=== PATIENT | male | born 1960 | race Caucasian/White ===

== ENCOUNTER 2019-06-04 11:55 | Emergency (ER) | payer OTHER, SELFPAY ==
[2018-09-25 10:40] VITALS: BMI 31.6
[2019-06-04 11:55] VITALS: BP 126/58; PULSE 72; RESP 16; TEMP 36.6; O2SAT 97; BMI 34.2
--- NOTE | 2019-06-04 12:13 | RAD_ITS ---
STUDY: X-RAY - LEFT FOOT CLINICAL: Male, 58 years old. Pain following injury. TECHNIQUE: 3 view(s) of the foot. COMPARISON: None. FINDINGS: There is an enthesophyte involving the posterior superior calcaneus at the site of insertion of the Achilles tendon. Plantar spur. Normal visualized subtalar, talonavicular, calcaneocuboid, tarsal and tarsometatarsal articulations. Normal metatarsi. Normal metatarsophalangeal joint of the great toe. Normal tibial and fibular sesamoid bones. Normal interphalangeal joint of the great toe. Normal phalanges of the great toe. Normal second through fifth metatarsophalangeal joints. Normal interphalangeal joints and phalanges of the lesser toes. Soft tissue swelling. RAD/Foot min 3 Views IMPRESSION: Plantar spurs. Soft tissue swelling. Electronically Signed: Deven Tom, at 12:52 EDT , Service support ,
--- NOTE | 2019-06-04 12:13 | ED.DCSUM_ITS ---
History of Present Illness Chief Complaint: Lower Extremity Injury Informant: Patient Onset: Yesterday Narrative: Injury left lower extremity yesterday 6 PM after stepping out of his truck. States he felt a pop in his foot, there was no twisting or inversion. States s imilar symptoms 2 weeks ago which was self-limiting. Using ibuprofen last dose 9 AM this morning. No history of gastric ulcers or kidney injuries. There is no falls or head injuries. Currently on treatment for multiple myeloma. History of fractured toes in the past. Able to ambulate however with a limp. No paresthesias. Swelling improved compared to last evening, has had a wrap on it overnight. Prior similar symptoms: Yes Past Medical History - Allergies and Home Meds Allergies/Adverse Reactions: Allergies bupropion [From Wellbutrin] Allergy (Unknown, Verified 06/04/19 11:58) Unknown Primary Care Physician: Gadiel Morris MD [Primary Care Provider] - Smoking Status: Never smoker Review of Systems All systems negative except as indicated Musculoskeletal: Reports: Arthralgias Neurological: Denies: Parasthesia Physical Exam Vital Signs/Narrative: Vital Signs Temp Pulse Resp BP Pulse Ox 06/04/19 11:55 98 F 72 16 126/58 H 97 Inital Vital Signs reviewed: Yes General: Well nourished, Well developed, No Acute Distress Head: Normocephalic, Atraumatic Eyes: Perrl, EOMI ENT: Moist mucous membranes, No rhinorrhea Neck: Supple, Nontender Cardiovascular: Regular rate, Regular rhythm, No murmurs Respiratory: No distress, CTA bilaterally, Chest nontender Abdomen: Soft, Nontender, Nondistended, Normal bowel sounds Back: Nontender, Normal Inspection Extremities: No edema, - - Left lower extremity: No knee or leg tenderness. Mild tenderness medial malleolus with no deformities. Tender palpation dorsal midfoot and proximal to this. There is no proximal fifth base tenderness. Neurovascular intact distally. Skin intact. Skin: Normal color, No rash Neurological: Alert, Oriented x3, Cranial nerves II-XII grossly intact, Normal Strength, Normal Sensation Psychological: Normal affect, Normal Mood Diagnostic/Tx/Re-eval Clinical Impression(s) from Imaging Studies Ankle X-Ray 06/04/19 12:13 IMPRESSION: Soft tissue swelling. Calcaneal spurs. 1.3 cm x 0.9 cm lucency in the lateral malleolus. With the history of multiple myeloma, myelomatous involvement should be ruled out. Electronically Signed: Deven Tom, at 12:52 EDT , Service support , Foot X-Ray 06/04/19 12:13 IMPRESSION: Plantar spurs. Soft tissue swelling. Electronically Signed: Deven Tom, at 12:52 EDT , Service support , Patient declined any additional pain medicines. X-ray of ankle and foot obtained shows no fracture however noted 1.37 x 0.9 cm lucency lateral malleolus. History of multiple myeloma. There is no fracture with this. Discussed findings with the patient, image studies were placed on the disc for the patient. They will follow-up with his oncologist reevaluation further testing as needed as an outpatient. He will continue ibuprofen every 6 hours as needed. - Medical Decision Making Aircast provided for comfort and stabilization. ED Disposition - Plan for ED Patient: Disposition: Home or Assisted Living Diagnosis: Strain of left ankle and foot, History of multiple myeloma Instructions: Sprain, Ankle, with X-Ray, Sprain Foot Referrals: Gadiel Morris MD [Primary Care Provider] - Additional Instructions: Continue ibuprofen 600 mg every 6 hours as needed. Aircast for comfort. Reported 1.3 x 0.9 centimeters lucency of distal lateral malleolus. Take image studies to your oncologist Dr. Whitfield for discussion as an outpatient and testing as needed.
--- NOTE | 2019-06-04 12:13 | RAD_ITS ---
STUDY: X-RAY - LEFT ANKLE REASON FOR EXAM: Male, 58 years old. Left foot pain following injury. History multiple myeloma. TECHNIQUE: 3 view(s) of the ankle. COMPARISON: None. FINDINGS: There is a 1.3 cm x 0.9 cm rounded lucency involving the lateral malleolus. Multiple myeloma should be Normal medial and lateral malleoli. Normal tibiotalar articulation and ankle mortise. Calcaneal spurs. The visualized subtalar, talonavicular, calcaneocuboid and tarsal articulations are normal. Soft tissue swelling. RAD/Ankle min 3 Views IMPRESSION: Soft tissue swelling. Calcaneal spurs. 1.3 cm x 0.9 cm lucency in the lateral malleolus. With the history of multiple myeloma, myelomatous involvement should be ruled out. Electronically Signed: Deven Tom, at 12:52 EDT , Service support ,
== END 2019-06-04 13:23 | disposition home or self-care (01) ==
PROVIDERS: Emergency Provider Emergency Medicine; Family Provider Family Medicine; PCP Family Medicine
DX: S96.912A Strain of unspecified muscle and tendon at ankle and foot level, left foot, initial encounter (principal); C90.00 Multiple myeloma not having achieved remission; X58.XXXA Exposure to other specified factors, initial encounter; Y93.89 Activity, other specified; Y92.89 Other specified places as the place of occurrence of the external cause; Y99.8 Other external cause status
CPT/HCPCS: 73610; 73630; 99283

== ENCOUNTER 2019-06-15 14:13 | Emergency (ER) | payer OTHER, SELFPAY ==
[2019-06-15 14:14] VITALS: BP 125/68; PULSE 125; RESP 15; TEMP 37; O2SAT 96; BMI 30.9
[2019-06-15 14:19] VITALS: BP 125/68; PULSE 125; RESP 15; TEMP 37; O2SAT 96
--- NOTE | 2019-06-15 14:42 | CT_ITS ---
STUDY: CT ABDOMEN AND PELVIS WITH CONTRAST REASON FOR EXAM: Male, 59 years old. N/V/D, JUST FINISHED A ROUND OF CHEMO FOR MULTIPLE MYELOMA, HAD STEM CELL TRANSPLANT IN NOVEMBER RADIATION DOSAGE (If Supplied By Facility): CTDIvol = ( 18.40 ) mGy, DLP = ( 1298.62 ) mGycm TECHNIQUE: Transaxial images were obtained from the dome of the diaphragm to the symphysis pubis without oral contrast. IV 100mL Isovue-300 100 was administered. Sagittal and coronal images were reconstructed. Individualized dose optimization techniques were used for this CT. COMPARISON: None. FINDINGS: The visualized lung bases are unremarkable. The visualized portions of the heart are within normal limits. Hepatomegaly and fatty liver. Distended gallbladder containing multiple stones. There are multiple benign calcified granulomata of the spleen. Normal pancreas. Normal bilateral adrenal glands. Normal right kidney. Normal left kidney. Normal visualized stomach. Normal small intestine. Fluid is present throughout the nondistended colon which could be related to enteritis. The appendix is visualized and appears normal. Normal abdominal aorta. Normal inferior vena cava. Normal retroperitoneum. Normal urinary bladder. Normal abdominal wall. Multiple round low density bone lesions are noted compatible with the given history of multiple myeloma. Mild age-indeterminate compression deformities of the superior endplates of L2 and L3 are noted. CT/Abdomen/Pelvis W IV Cont ONLY IMPRESSION: Fluid is present throughout the nondistended colon which could be related to enteritis. Distended gallbladder containing multiple stones. Hepatomegaly and fatty liver. Multiple round low density bone lesions are noted compatible with the given history of multiple myeloma. Mild age-indeterminate compression deformities of the superior endplates of L2 and L3 are noted. Electronically Signed: Andres Cloud MD at 16:08 EDT Tel , Service support ,
--- NOTE | 2019-06-15 14:43 | ED.DCSUM_ITS ---
History of Present Illness <Rell Torres - Last Filed: 06/15/19 15:41> Informant: Patient Onset: Days Narrative: Patient with a history of multiple myeloma presents with a 8-day history of nausea, vomiting, and diarrhea. He states last night he was up all night vomiting. He is currently undergoing chemotherapy. He denies any fever or chills or abdominal pain. His most recent dose of chemotherapy was yesterday. He was admitted to [facility] from June 10 to June 12. He was discharged with Imodium but no antiemetic. He states that his symptoms did improve for a small amount of time, however they are worse again. He has no history of abdominal surgeries. His claims that the vomit looks like he is throwing up feces. <Lizzie Roy - Last Filed: 06/15/19 17:21> Chief Complaint: Nausea/Vomiting/Diarrhea Past Medical History <Rell Torres - Last Filed: 06/15/19 15:41> Smoking Status: Never smoker <Lizzie Roy - Last Filed: 06/15/19 17:21> - Allergies and Home Meds Allergies/Adverse Reactions: Allergies bupropion [From Wellbutrin] Allergy (Unknown, Verified 06/04/19 11:58) Unknown Primary Care Physician: Gadiel Morris MD [Primary Care Provider] - Review of Systems General: Denies: Chills, Fever, Sweats Eyes: Denies: Visual changes - bilaterally, Diplopia ENT: Denies: Rhinorrhea, Sore throat Cardiovascular: Denies: Chest pain, Palpitations Respiratory: Denies: Dyspnea, Cough, Dyspnea on exertion Gastrointestinal: Reports: Nausea, Vomiting, Diarrhea. Denies: Abdominal pain, Melena, Hematochezia Genitourinary: Denies: Dysuria, Hematuria, Frequency Musculoskeletal: Denies: Back pain, Extremity Pain Skin: Denies: Rash, Wounds Neurological: Denies: Headache, Weakness, Numbness <Lizzie Roy - Last Filed: 06/15/19 17:21> Physical Exam Vital Signs/Narrative: Vital Signs Temp Pulse Resp BP Pulse Ox 06/15/19 14:19 98.6 F 125 H 15 125/68 H 96 06/15/19 14:14 98.6 F 125 H 15 125/68 H 96 <Rell Torres - Last Filed: 06/15/19 15:41> Vital Signs/Narrative: Vital Signs Temp Pulse Resp BP Pulse Ox 06/15/19 14:14 98.6 F 125 H 15 125/68 H 96 General: Well nourished, Well developed, No Acute Distress Head: Normocephalic, Atraumatic Eyes: Perrl, EOMI ENT: Moist mucous membranes, No rhinorrhea Neck: Supple, Nontender Cardiovascular: Regular rate, Regular rhythm, No murmurs Respiratory: No distress, CTA bilaterally, Chest nontender Abdomen: Soft, Nondistended, Normal bowel sounds, Tender - generalized, - - Abdominal distension Back: Nontender, Normal Inspection Extremities: Nontender, No edema Skin: Normal color, No rash Neurological: Alert, Oriented x3, Cranial nerves II-XII grossly intact, Normal Strength, Normal Sensation Psychological: Normal affect, Normal Mood <Lizzie Roy - Last Filed: 06/15/19 17:21> Diagnostic/Tx/Re-eval - Medical Decision Making Evaluate this patient with our physician assistant store manager sales. This is a 59-year-old male history of multiple myeloma. Was recently hospitalized at [facility] last week for nausea and vomiting. He denies any abdominal pain or fever. He has had nausea, vomiting and diarrhea. He denies any dysuria. No prior bowel obstructions. No prior abdominal surgeries. Physical exam vital signs are stable afebrile. Older male no acute distress. HEENT exam mildly dry mucous membranes. Lungs clear to auscultation bilaterally. Heart regular rhythm no murmur. Abdomen soft. Nondistended normal bowel sounds no peritoneal signs. No hernias or masses. No signs of obstruction. Moving all 4 extremities. Neurologically awake and alert. Treated with IV fluids and Zofran. Labs and CT pending. <Rell Torres - Last Filed: 06/15/19 15:41> - Medical Decision Making Patient presents to the ED with nausea, vomiting, and diarrhea for the last 3 days. He is a history of multiple myeloma. He was tachycardic upon arrival, however otherwise vital signs within normal limits. He is afebrile. He is currently undergoing oral chemotherapy. His last dose was yesterday. He states his next dose is next week. He was recently discharged from [facility] for similar symptoms, however had no imaging. He was given IV fluids and Zofran here. Work-up here is fairly unremarkable other than hypokalemia of 2.9. P atient states he does have chronic hypokalemia and takes 40 mEq of potassium daily. Patient was given 40 mEq orally of potassium here. He does report improvement of symptoms. CT of the abdomen/pelvis with IV contrast shows no acute findings other than findings suspicious for enteritis. At this time, I think it is safe for the patient be discharged home. He has not vomited since being here however he does still admit that he is nauseous. He was given IV Phenergan for further control of his symptoms. He will be given prescriptions for Zofran for primary control and Phenergan if Zofran does not help. He does have enough potassium at home to continue supplementing. He will follow-up with his PCP and oncologist. He was educated on signs/symptoms to return to the ED. He is provided discharge instructions and agreeable plan. Impression: Nausea and vomiting and diarrhea. History of multiple myeloma. Disposition: Home stable <Lizzie Roy - Last Filed: 06/15/19 17:21> ED Disposition <Rell Torres - Last Filed: 06/15/19 15:41> <Lizzie Roy - Last Filed: 06/15/19 17:21> - Plan for ED Patient: Disposition: Home or Assisted Living Diagnosis: Nausea & vomiting, Hypokalemia due to excessive gastrointestinal loss of potassium Instructions: Hypokalemia, VOMITING AND DIARRHEA, Nonspecific (Adult) Prescriptions: proMETHazine tablet [Phenergan] 25 mg PO Q8H PRN PRN #10 tab PRN Reason: Nausea Prescription Printed Ondansetron HCl [Zofran] 4 mg PO Q8H PRN PRN #30 tab PRN Reason: Nausea Prescription Printed Referrals: Gadiel Morris MD [Primary Care Provider] -
[2019-06-15] MEDS: 0.9% Normal Saline 1,000 ML 1000 ML IV (14:58)
[2019-06-15] MEDS: Ondansetron 4 MG/2 ML Vial IV (14:59)
[2019-06-15 15:08] LABS: Absolute Lymphocyte Count 0.38 X10^3/uL (0.83-4.51); Absolute Neutrophil Count 5.5 X10^3/uL (2.0-7.7); Basophil# 0.03 X10^3/uL; Basophil% 0.4 % (0-1); Eosinophil# 0.01 X10^3/uL; Eosinophils% 0.1 % (0-5); Hematocrit 38.7 % (40-54); Hemoglobin 13.4 g/dL (13.0-16.5); Lymphocyte # 0.38 X10^3/ul (4.0); Lymphocyte % 5.4 % (19-41); Mean Corp Hgb Conc 34.6 g/dL (32-36); Mean Corpuscular Hgb 31.5 pg (27.0-32.0); Mean Corpuscular Volume 90.8 fL (80-94); Mean Platelet Vol. 9.8 fl (6.2-12.0); Monocyte# 1.03 X10^3/uL; Monocyte% 14.7 % (0-10); NRBC Flagged by Analyzer 0 % (0-5); Neutrophil # 5.48 X10^3/uL (2.7-7.7); POSITIVE DIFFERENTIAL YES; POSITIVE MORPHOLOGY YES; Platelet Count 276 K/mm3 (150-450); RBC Distribution Width CV 14.4 % (11.6-14.6); RBC Distribution Width SD 47.5 fl (35.1-43.9); Red Blood Count 4.26 M/mm3 (4.6-6.2)
[2019-06-15 15:21] LABS: Differential Indicated SCAN CRITERIA MET
[2019-06-15 15:26] LABS: ALB/GLOB Ratio 0.7 RATIO (0.9-2.4); AST(SGOT) 26 U/L (15-37); Alanine Aminotransfer ALT/SGPT 51 U/L (16-61); Alkaline Phosphatase 57 U/L (45-117); Anion Gap 7 (5-15); BUN 19 mg/dL (7-18); Calcium,Total 6.6 mg/dL (8.5-10.1); Chloride 102 mmol/L (98-107); Creatinine, Serum 1.27 mg/dL (0.70-1.30); EST Glomerular Filtration Rate 61 mL/min (>60); Est Glom Filt Rate - Afr Amer 74 mL/min (>60); Estimated Creatinine Clearance 67.04 ml/min; Globulin 4.4 g/dL (2.2-4.2); Glucose 237 mg/dL (74-106); Lipase 214 U/L (73-393); Potassium 2.9 mmol/L (3.5-5.1); Protein, Total 7.4 g/dL (6.4-8.2); Sodium Level 135 mmol/L (136-145)
[2019-06-15 15:53] LABS: Differential Comment SCANNED
[2019-06-15 16:19] VITALS: BP 107/75; PULSE 111; RESP 16; O2SAT 94
[2019-06-15] MEDS: proMETHazine 25 MG/ML Syringe 12.5 MG IV (16:39)
== END 2019-06-15 17:09 | disposition home or self-care (01) ==
PROVIDERS: Emergency Provider Physician Assistant; Family Provider Family Medicine; PCP Family Medicine
DX: R19.7 Diarrhea, unspecified (principal); R11.2 Nausea with vomiting, unspecified; E87.6 Hypokalemia; C90.00 Multiple myeloma not having achieved remission
CPT/HCPCS: 74177; 80053; 83690; 85025; 96361; 96374; 96375; 99285; J7030; Q9967; A4216; J2405

== ENCOUNTER 2019-06-18 19:42 | Emergency (ER) | payer OTHER, SELFPAY ==
[2019-06-18 19:43] VITALS: BP 128/86; PULSE 117; RESP 16; TEMP 36.6; O2SAT 100; BMI 30.7
--- NOTE | 2019-06-18 20:27 | EKG12_ITS ---
Test Reason : ABDN LABS Blood Pressure : / mmHG Vent. Rate : 110 BPM Atrial Rate : 110 BPM P-R Int : 128 ms QRS Dur : 154 ms QT Int : 424 ms P-R-T Axes : 022 040 011 degrees QTc Int : 573 ms Sinus tachycardia Possible Left atrial enlargement Right bundle branch block T wave abnormality, consider inferior ischemia Abnormal ECG Confirmed by DEBI JUARES ([id number]), video effects editor CATHY SHAEFR ([id number]) on 06/24/2019 12:12:08 PM Referred By: Confirmed By:DEBI JUARES
[2019-06-18] MEDS: Ondansetron 4 MG/2 ML Vial IV (20:46)
[2019-06-18] MEDS: 0.9% Normal Saline 1,000 ML 1000 ML IV (20:46)
[2019-06-18] MEDS: Acetaminophen 500 MG Tablet 1000 MG PO (20:46)
[2019-06-18 20:47] LABS: Absolute Lymphocyte Count 0.61 X10^3/uL (0.83-4.51); Absolute Neutrophil Count 8.9 X10^3/uL (2.0-7.7); Basophil# 0.05 X10^3/uL; Basophil% 0.5 % (0-1); Eosinophil# 0.03 X10^3/uL; Eosinophils% 0.3 % (0-5); Hematocrit 38.9 % (40-54); Hemoglobin 13.2 g/dL (13.0-16.5); Lymphocyte # 0.61 X10^3/ul (4.0); Mean Corp Hgb Conc 33.9 g/dL (32-36); Mean Corpuscular Hgb 31.1 pg (27.0-32.0); Mean Corpuscular Volume 91.7 fL (80-94); Mean Platelet Vol. 9.7 fl (6.2-12.0); Monocyte# 0.52 X10^3/uL; Monocyte% 5.1 % (0-10); NRBC Flagged by Analyzer 0 % (0-5); Neutrophil # 8.89 X10^3/uL (2.7-7.7); Neutrophil % 87.3 % (47-70); POSITIVE MORPHOLOGY YES; Platelet Count 328 K/mm3 (150-450); RBC Distribution Width CV 14.4 % (11.6-14.6); Red Blood Count 4.24 M/mm3 (4.6-6.2); White Blood Count 10.2 K/mm3 (4.4-11.0)
[2019-06-18 20:55] LABS: Differential Indicated SCAN CRITERIA MET
[2019-06-18 21:08] LABS: AST(SGOT) 49 U/L (15-37); Alanine Aminotransfer ALT/SGPT 61 U/L (16-61); Albumin, Serum 3.1 g/dL (3.2-5.0); Alkaline Phosphatase 70 U/L (45-117); Anion Gap 6 (5-15); BUN 14 mg/dL (7-18); BUN/Creat Ratio 13.7 RATIO (10-20); Bilirubin, Direct 0.17 mg/dL (0.00-0.30); Calcium,Total 6.9 mg/dL (8.5-10.1); Chloride 101 mmol/L (98-107); Creatinine, Serum 1.02 mg/dL (0.70-1.30); EST Glomerular Filtration Rate 79 mL/min (>60); Est Glom Filt Rate - Afr Amer 96 mL/min (>60); Estimated Creatinine Clearance 83.47 ml/min; Globulin 4.4 g/dL (2.2-4.2); Glucose 93 mg/dL (74-106); Lipase 196 U/L (73-393); Magnesium 1.7 mg/dL (1.6-2.6); Potassium 2.9 mmol/L (3.5-5.1); Protein, Total 7.5 g/dL (6.4-8.2); Sodium Level 137 mmol/L (136-145)
[2019-06-18 21:30] LABS: Differential Comment SCANNED
--- NOTE | 2019-06-18 22:23 | ED.VISSUMM ---
- ER Visit Summary Date of Service: 06/18/19 Chief Complaint: Vomiting and diarrhea History of Present Illness: The patient is a 59 M who presents the emergency department 2 weeks of vomiting and diarrhea. Patient states he was admitted to [facility] last week and was admitted for 4 days. During which time he required potassium calcium and magnesium repletion as well as IV fluids. He states that since returning home he is continued to have vomiting diarrhea. He notes diffuse abdominal cramping. He had blood work done yesterday that showed potassium 2.9 a calcium of 6.3. He notes the diarrhea is greenish-yellow and watery. He states that he has been unable to take his other medications at home due to vomiting. He has a history of multiple myeloma and underwent stem cell transplant in November 2018. He also has a history of diabetes hypertension high cholesterol coronary artery disease. He notes decreased urination and dry mouth. Physical Examination: Afebrile blood pressure 128/86 heart rate of 117 respirations are 16 pulse ox 100% room air Gen: Well-nourished well-developed Head: Normocephalic atraumatic Eyes: Perrl EOMI ENT: TMs clear no rhinorrhea dry mucous membranes Neck: Supple no lymphadenopathy no JVD nontender CVS: Regular rate tachycardic rhythm no murmurs normal S1-S2 Respiratory: No distress clear to auscultation bilaterally chest nontender Abdomen: Soft nontender nondistended normal bowel sounds no masses Back: Nontender Extremity: Nontender no edema Skin: Normal color no rash Neuro: alert orientated ?3 CN II-XII intact normal strength sensation Psych: Normal affect normal mood Test Results: CBC normal. Potassium 2.9. Calcium 6.9. Magnesium 1.7. Stool studies were ordered. EKG sinus rhythm at a rate of 114 with right bundle branch block. Emergency Department Course and Treatment: Patient received IV fluids and Zofran as well as potassium and calcium gluconate. Patient's heart rate has decreased from around 120 down to 95 with IV fluids. I spoke with our hospitalist here who feels the patient would be best served at [facility]. I contacted the transfer line and waiting acceptance. Impression: 1. Gastroenteritis 2. Dehydration 3. Hypokalemia 4. Hypocalcemia This note was generated with [employer] software. It may contain incorrect words, spelling, and punctuation that were not noted in review of the chart prior to signing ED Disposition - Plan for ED Patient: Referrals: Gadiel Morris MD [Primary Care Provider] -
[2019-06-18] MEDS: 0.9% Normal Saline 1,000 ML 125 ML IV (22:32)
[2019-06-18] MEDS: Potassium Chloride 10mEq/100mL 10 MEQ/100 ML IV.SOLN. 100 MEQ IV BOLUS (22:32)
[2019-06-18 23:03] VITALS: BP 124/73; PULSE 97; RESP 16; O2SAT 98
[2019-06-18 23:04] VITALS: BP 124/73; PULSE 95; RESP 16; O2SAT 100
[2019-06-19 00:20] VITALS: BP 116/75; PULSE 101; RESP 25; O2SAT 96
== END 2019-06-19 00:30 | disposition short-term general hospital (02) ==
LOC: ED 20:38
PROVIDERS: Emergency Provider Emergency Medicine; Family Provider Family Medicine; PCP Family Medicine
DX: K52.9 Noninfective gastroenteritis and colitis, unspecified (principal); E86.0 Dehydration; E87.6 Hypokalemia; E83.51 Hypocalcemia; C90.00 Multiple myeloma not having achieved remission; I10 Essential (primary) hypertension; E11.9 Type 2 diabetes mellitus without complications
CPT/HCPCS: 80048; 80076; 83690; 83735; 85025; 93005; 96361; 96365; 96366; 96368; 96375; 99285; J7030; J7040; A4216; J0610; J2405

== ENCOUNTER 2021-05-18 14:03 | Emergency (ER) | payer OTHER, SELFPAY ==
[2021-05-18 14:04] VITALS: BP 119/62; PULSE 63; RESP 18; TEMP 35.7; O2SAT 100; BMI 30.2
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
== END 2021-05-18 15:23 | disposition home or self-care (01) ==
LOC: ED 15:18
PROVIDERS: Emergency Provider Emergency Medicine; PCP Family Medicine
DX: L03.119 Cellulitis of unspecified part of limb (principal); I10 Essential (primary) hypertension; E11.9 Type 2 diabetes mellitus without complications; Z79.4 Long term (current) use of insulin; Z79.899 Other long term (current) drug therapy
CPT/HCPCS: 99282

== ENCOUNTER 2023-01-31 20:19 | Inpatient (IN) | payer OTHER, SELFPAY ==
[2023-01-31 20:25] VITALS: BP 109/61; PULSE 98; RESP 16; TEMP 36.6; O2SAT 97; BMI 25.5
[2023-01-31 22:20] LABS: Bedside Glucose 117 mg/dL (74-106)
--- NOTE | 2023-01-31 22:22 | HP.PCM_ITS ---
[facility] - General General Date of Admission: 01/31/23 Date of Service: 02/01/23 Chief Complaint: Here for 3 hours daily therapy. [facility] Narrative SUSAN CAMARILLO, is a 62 Male who presents with followin12/19/2022 Admit to [facility] for engineered cellular therapy for multiple myeloma. 12/28/2022 Worsening mental status concerning for neurotoxicity. Fever 100.8, on Zosyn, blood cultures negative, Chest X-ray negative. 12/30/2022 Atrial fibrillation with rapid ventricular response treated with IV Metoprolol, IV Diltiazem. Lactate rising to 4.2 despite 4 liters IV fluids given. 12/30/2022 Admit to [facility] MICU. Treat with atrial fibrillation with metoprolol, digoxin. Continue Zosyn, pancultured, for fever in immunocompromised patient. 01/10/2023 Subarachnoid hemorrhage. Severe thrombocytopenia. 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 01/31/2023 Admit to for 3 hours daily rehabilitation, strengthening, prior to discharge home with . [facility] Medical History Back problem Bone fracture Cancer Heart disease HTN (hypertension) Type 2 diabetes mellitus UTI (urinary tract infection) Vascular disease Home Medications acyclovir 400 mg tablet 400 mg PO BID 07/24/18 [History Last Taken Unknown] aspirin 81 mg tablet,delayed release 81 mg PO DAILY 07/24/18 [History Last Taken Unknown] atenolol 100 mg tablet 100 mg PO DAILY 07/24/18 [History Last Taken Unknown] clopidogrel 75 mg tablet (Plavix) 75 mg PO DAILY 07/24/18 [History Last Taken Unknown] daratumumab 20 mg/mL intravenous solution mg .Route 07/24/18 [History Last Taken Unknown] dexamethasone 4 mg tablet 20 mg PO .1 x q week STEROID 07/24/18 [History Last Taken Unknown] duloxetine 30 mg capsule,delayed release 30 mg PO DAILY TREAT DEPRESSION 07/24/18 [History Last Taken Unknown] hydrochlorothiazide 25 mg tablet 25 mg PO DAILY 07/24/18 [History Last Taken Unknown] lenalidomide 25 mg capsule 25 mg PO DAILY TREAT MULTIPLE MYELOMA 07/24/18 [History Last Taken Unknown] lisinopril 30 mg tablet 30 mg PO DAILY HTN 07/24/18 [History Last Taken Unknown] FreeStyle Skip 14 Day Sensor (flash glucose sensor) #1 ea 07/26/18 [Rx Last Taken Unknown] flash glucose scanning reader (FreeStyle Skip 14 Day [place]) #1 ea 07/26/18 [Rx Last Taken Unknown] insulin glargine U-300 conc 300 unit/mL (1.5 mL) subcutaneous pen (Toujeo SoloStar U-300 Insulin) 62 unit (0.2067 mL) subcut BID e11.9 #38 mL 09/24/18 [Rx Last Taken Unknown] insulin lispro 100 unit/mL subcutaneous pen (Humalog KwikPen (U-100) Insulin) See Rx Instructions subcut TID e11.9 #36 mL 09/24/18 [Rx Last Taken Unknown] ondansetron HCl 4 mg tablet 4 mg PO Q8H PRN PRN Nausea #30 tabs 06/15/19 [Rx Last Taken Unknown] promethazine 25 mg tablet 25 mg PO Q8H PRN PRN Nausea #10 tabs 06/15/19 [Rx Last Taken Unknown] apixaban 5 mg tablet (Eliquis) 5 mg PO BID BLOOD THINNER 01/31/23 [History Last Taken Unknown] calcium carbonate 200 mg calcium (500 mg)-vitamin D3 400 unit tablet tab PO SUPPLEMENT 01/31/23 [History Last Taken Unknown] carvedilol 6.25 mg tablet 6.25 mg BID HEART 01/31/23 [History Last Taken Unknown] cetirizine 10 mg tablet (Zyrtec) 10 mg PO DAILY ANTIHYSTAMINE 01/31/23 [History Last Taken Unknown] dexamethasone 0.75 mg tablet 1 mg PO DAILY STEROID 01/31/23 [History Last Taken Unknown] hydralazine 100 mg tablet 75 mg PO BID HTN 01/31/23 [History Last Taken Unknown] levetiracetam 750 mg tablet (Keppra) 750 mg PO BID SEIZURE 01/31/23 [History Last Taken Unknown] lidocaine 4 % topical patch (Salonpas (lidocaine)) 1 patch topical DAILY PRN Pain 01/31/23 [History Last Taken Unknown] loperamide 2 mg capsule 2 mg PO Q6H PRN Diarrhea 01/31/23 [History Last Taken Unknown] losartan 100 mg tablet (Cozaar) 100 mg BLOOD PRESSURE 01/31/23 [History Last Taken Unknown] melatonin 5 mg tablet 6 mg PO QHS SLEEP AID 01/31/23 [History Last Taken Unknown] pantoprazole 40 mg tablet,delayed release (Protonix) 40 mg PO DAILY STOMACH ACID 01/31/23 [History Last Taken Unknown] prochlorperazine maleate 10 mg tablet (Compazine) 10 mg PO Q6H PRN Nausea 01/31/23 [History Last Taken Unknown] romiplostim 125 mcg subcutaneous solution 84.1 mcg subcut QWEEK FOR PLATELET COUNT 01/31/23 [History Last Taken Unknown] sulfamethoxazole 800 mg-trimethoprim 160 mg tablet (Bactrim DS) tab MOWEFR INFECTION 01/31/23 [History Last Taken Unknown] tamsulosin 0.4 mg capsule (Flomax) 0.4 mg PO RETENTION 01/31/23 [History Last Taken Unknown] insulin glargine 100 unit/mL (3 mL) subcutaneous pen 48 unit subcut BREAKFAST GLUCOSE CONTROL 02/01/23 [History Last Taken Unknown] insulin glargine 100 unit/mL (3 mL) subcutaneous pen 48 unit subcut QHS GLUCOSE CONTROL 02/01/23 [History Last Taken Unknown] Allergy/AdvReac Type Severity Reaction Status Date / Time bupropion [From Wellbutrin] Allergy Unknown Unknown Verified 05/18/21 14:03 Family History Father Cancer Grandmother Diabetes Grandfather Heart disease Mother Hypertension Surgical History History of bone marrow biopsy History of heart artery stent History of hernia repair Social History (Updated 01/31/23 @ 23:40 by Sallie Zarate) adopted: No household members: spouse housing: house number of children: 3 financial difficulty paying for basics: decline to answer service: No current occupational status: other current occupation: self employed current occupational exposures/hazards: No pets and animals: Yes (7 horses, 2 dogs) leisure activities: games Smoking Status: Never smoker Smokeless tobacco user: snuff alcohol intake: never substance use type: does not use ROS Constitutional Constitutional: Denies chills, fever(s) or weight gain ENT HEENT: Denies headache(s), nasal congestion or nasal discharge Cardiovascular Cardiovascular: Denies chest pain or palpitations Respiratory/Chest Respiratory/Chest: Denies cough, excessive phlegm production or shortness of breath with exertion Gastrointestinal Gastrointestinal: Denies abdominal pain, nausea or vomiting Genitourinary Genitourinary: Denies dysuria Musculoskeletal Musculoskeletal: Denies joint pain or joint swelling Integumentary Integumentary: Denies rash or wounds Neurologic Neurologic: Denies focal weakness, numbness or tingling Psychiatric Psychiatric: Denies anxiety, auditory hallucinations, depression, homicidal ideation or suicidal ideation Vital Signs Vital Signs Vital Signs: 01/31/23 20:25 Temperature 97.8 F Temperature Source Oral Pulse Rate 98 Respiratory Rate 16 Blood Pressure 109/61 Blood Pressure Mean 77 Blood Pressure Source Monitor Blood Pressure Position Semi-Fowlers Blood Pressure Location Right Arm Pulse Ox 97 Oxygen Delivery Method Room Air Weight Weight: 85.531 kg Body Mass Index (BMI) 25.5 Indicators for Scoring Admitted with or Primary Diagnosis of CVA/Stroke: Yes Hx of CVA/Stroke: Yes Modified [place] Score MRS Score at time of Evaluation: 3-Moderate disability NIHSS NIHSS 1a. Level of Consciousness: Alert; keenly responsive 1b. LOC Questions: Answers BOTH questions correctly. 1c. LOC Commands: Performs both tasks correctly. 2. Best Gaze: Normal 3. Visual: No visual loss 4. Facial Palsy: Normal symmetrical movements 5a. Left Arm: No drift; arm holds 90 (or 45) degrees for full 10 seconds 5b. Right Arm: No drift; arm holds 90 (or 45) degrees for full 10 seconds 6a. Left Leg: No drift; leg holds 30-degree position for full 5 seconds 6b. Right Leg: No drift; leg holds 30-degree position for full 5 seconds 7. Limb Ataxia: Absent 8. Sensory: Normal; no sensory loss 9. Best Language: No aphasia; normal 10. Dysarthria: Normal 11. Extinction and Inattention: No abnormality Total: 0 Results Lab / Micro Data Result Diagrams: 02/01/23 05:49 02/01/23 05:49 Labs: Laboratory Results - last 24 hr 01/31/23 21:58: POC Glucose 117 H Assessment & Plan Assessment/Plan (1) Debility: (2) Multiple myeloma: (3) Sepsis: (4) Fungemia: (5) Chelsea albicans infection: (6) Atrial fibrillation with rapid ventricular response: (7) Coronary artery disease: (8) Heart failure with reduced ejection fraction: (9) Diabetes mellitus: (10) Hypertension: (11) Hyperlipidemia: PLAN: Plan 62 year old male with multiple myeloma hospitalized for engineered cellular th erapy, complicated by brain bleed, thrombocytopenia, sepsis, chelsea albicans fungemia, atrial fibrillation with rapid ventricular response, admitted to for 3 hours daily rehabilitation, strengthening, prior to discharge home with . * Debility - PT/OT. * Cognition - ST. * Pain - Lidoderm patch daily prn. * Bowel - Miralax 17gm daily prn, senna/colace 2 tablets bid, Dulcolax 10mg pr x 1 prn, MOM 30ml po x 1 prn, Imodium 2mg q6h prn. * DVT prophylaxis - on Eliquis. * Herpes Zoster prophylaxis - Acyclovir 400mg bid. * Atrial fibrillation - Coreg 6.25mg bidcm, Eliquis 5mg bid. * Calcium deficiency - Calcium D 1 tablet daily. * Neurotoxicity - Dexamethasone taper. * Diabetes Mellitus II - Glargine 30 units bid. * Hypertension - Coreg 6.25mg bidcm, Losartan 100mg daily, Hydralazine 75mg bid. * Seizure disorder - Keppra 750mg bid. * Allergic rhinitis - Loratadine 10mg daily. * Insomnia - Melatonin 6mg qhs. * GERD - Pantoprazole 40mg daily. * Nausea - Compazine 10mg q6h prn. * PCP prophylaxis - Bactrim DS 1 tablet MWF. * BPH - Tamsulosin 0.4mg daily. * Thrombocytopenia - Nplate 84.1mcg sc qweek.
[2023-01-31] MEDS: Acyclovir 200 MG Capsule 400 MG PO (22:51)
[2023-01-31] MEDS: Senna/Docusate Sodium 1 Tablet 2 TABLET PO (22:51)
[2023-01-31] MEDS: MELATONIN 3 MG TABLET 6 MG PO (22:51)
[2023-01-31] MEDS: levETIRAcetam 750 MG Tablet PO (22:52)
[2023-01-31] MEDS: APIXABAN 5 MG TABLET PO (22:52)
[2023-01-31 22:53] VITALS: PULSE 99
[2023-01-31] MEDS: hydrALAZINE 25 MG Tablet 75 MG PO (22:53)
[2023-01-31] MEDS: Carvedilol 6.25 MG Tablet PO (22:53)
[2023-01-31 23:08] VITALS: BP 116/64; PULSE 105; RESP 17; TEMP 36.8; O2SAT 98
[2023-02-01] VITALS (9 sets, daily range): BP systolic 99–109; BP diastolic 64–75; PULSE 101–115; RESP 16–20; TEMP 35.8–36.1; O2SAT 94–98; BMI 25.0; BMI 25.1
--- NOTE | 2023-02-01 02:35 | NURSING ---
blood glucose check at 02:00 was 52. Intervention of curt crackers, peanut butter, and juice provided. Pt's pillow was damp but pt claims he has been dyaphoretic the past few weeks and denies symptoms. BS recheck was 91. Will continue to monitor.
[2023-02-01 03:26] LABS: Bedside Glucose 52 mg/dL (74-106)
[2023-02-01 03:26] LABS: Bedside Glucose 91 mg/dL (74-106)
[2023-02-01 04:11] LABS: Bedside Glucose 132 mg/dL (74-106)
[2023-02-01 06:05] LABS: Absolute Lymphocyte Count 2.64 X10^3/uL (0.83-4.51); Absolute Neutrophil Count 6.9 X10^3/uL (2.0-7.7); Basophil# 0.05 X10^3/uL; Basophil% 0.4 % (0-1); Eosinophil# 0.02 X10^3/uL; Eosinophils% 0.2 % (0-5); Hematocrit 33.8 % (40-54); Lymphocyte # 2.64 X10^3/ul (0.83-4.51); Lymphocyte % 22.6 % (19-41); Mean Corp Hgb Conc 32.5 g/dL (32-36); Mean Corpuscular Hgb 35.1 pg (27.0-32.0); Mean Platelet Vol. 11.3 fl (6.2-12.0); Monocyte# 1.77 X10^3/uL; Monocyte% 15.2 % (0-10); NRBC Flagged by Analyzer 0.3 % (0-5); POSITIVE DIFFERENTIAL YES; POSITIVE MORPHOLOGY YES; Platelet Count 217 K/mm3 (150-450); RBC Distribution Width CV 23.6 % (11.6-14.6); RBC Distribution Width SD 90.3 fl (35.1-43.9); Red Blood Count 3.13 M/mm3 (4.6-6.2); White Blood Count 11.7 K/mm3 (4.4-11.0)
[2023-02-01 06:09] LABS: Differential Indicated SCAN CRITERIA MET
[2023-02-01 06:28] LABS: Anisocytosis 3+
[2023-02-01 06:29] LABS: Macrocytosis 2+; Polychromasia RARE
[2023-02-01 06:44] LABS: Anion Gap 6 (5-15); BUN 56 mg/dL (7-18); BUN/Creat Ratio 66.1 RATIO (10-20); Calcium,Total 8.9 mg/dL (8.5-10.1); Chloride 99 mmol/L (98-107); Creatinine, Serum 0.85 mg/dL (0.70-1.30); EST Glomerular Filtration Rate 97 mL/min (>60); Est Glom Filt Rate - Afr Amer 117 mL/min (>60); Estimated Creatinine Clearance 96.37 ml/min; Glucose 188 mg/dL (74-106); Magnesium 1.7 mg/dL (1.6-2.6); Phosphorus 4.4 mg/dL (2.5-4.9); Potassium 4.3 mmol/L (3.5-5.1); Sodium Level 134 mmol/L (136-145)
[2023-02-01 06:55] LABS: Bedside Glucose 191 mg/dL (74-106)
[2023-02-01] MEDS: Lidocaine 5% Patch 1 PATCH TOPICAL (09:17)
[2023-02-01] MEDS: APIXABAN 5 MG TABLET PO (09:18)
[2023-02-01] MEDS: hydrALAZINE 25 MG Tablet 75 MG PO ×2 (09:18→21:23)
[2023-02-01] MEDS: DULoxetine Hcl 30 MG Capsule PO (09:18)
[2023-02-01] MEDS: Pantoprazole Sodium 40 MG Tablet PO (09:18)
[2023-02-01] MEDS: Calcium Carb/Vitamin D 1 TABLET Tablet PO (09:19)
[2023-02-01] MEDS: Smz/Tmp Ds Tablet 1 TABLET PO (09:19)
[2023-02-01] MEDS: Loratadine 10 MG Tablet PO (09:19)
[2023-02-01] MEDS: Carvedilol 6.25 MG Tablet PO ×2 (09:19→18:21)
[2023-02-01] MEDS: Acyclovir 200 MG Capsule 400 MG PO ×2 (09:19→21:22)
[2023-02-01] MEDS: Losartan Potassium 100 MG Tablet PO (09:20)
[2023-02-01] MEDS: Insulin Glargine-YFGN 100 UNIT/ML Pen 30 UNIT SC (09:20)
[2023-02-01] MEDS: levETIRAcetam 750 MG Tablet PO ×2 (09:20→21:22)
[2023-02-01] MEDS: dexAMETHasone 4 MG Tablet 2 MG PO (09:21)
[2023-02-01] MEDS: Menthol/Lanolin/Calamine/Znox 113 GM Tube 1 APPLIC TOPICAL ×2 (11:50→21:25)
[2023-02-01] MEDS: Loperamide 2 MG Capsule PO (11:50)
--- NOTE | 2023-02-01 12:00 | NURSING ---
Addendum entered by Renita Romero 02/01/23 13:17: recheck blood sugar 465. Dr Gaitan made aware. 1x dose Humalog 15u. Original Note: pts blood sugar 461. Dr Gaitan on unit and gave 1x order Humalog 10u and to recheck in 1 hr
[2023-02-01] MEDS: Insulin Lispro 100 UNIT/ML INSULN.PEN 10 UNIT SC (12:25)
[2023-02-01 12:31] LABS: Bedside Glucose 461 mg/dL (74-106)
[2023-02-01] MEDS: Insulin Lispro 100 UNIT/ML INSULN.PEN 15 UNIT SC (13:18)
[2023-02-01 13:41] LABS: Bedside Glucose 455 mg/dL (74-106)
--- NOTE | 2023-02-01 14:35 | PCM.PN.BLA ---
Progress Note He was hypoglycemic overnight and the HS dose of Lantus has been discontinued. BS at breakfast was 191 after snacks and went to 461 at lunchtime. He received no lispro in the AM. After 10 units of lispro at lunch the blood sugar came down to only 455 and he was given an additional 15 units of lispro. We will continue the a.m. glargine 30 units and add scheduled mealtime lispro. Will also continue with a medium high sliding scale. He only ate 25 to 49% of lunch but ate 75 to 100% of breakfast. It is okay to give lispro immediately after he eats and the nurses were instructed that if he does not eat he should not get scheduled lispro but should continue with the sliding scale insulin. I suspect the blood sugars will decrease when the dexamethasone is discontinued in 5 days. the patient was not examined and there will be charge for my input/orders. Dr. Traore is managing this patient and I just happened to be here with the BS was 461.
--- NOTE | 2023-02-01 15:37 | CHAPLAIN ---
Type of Pastoral Visit _x__ Initial Visit ___ Follow-up Visit ___ On-call Visit ___ General Patient Visit ___ Spiritual Assessment ___ Family Conference ___ Bereavement ___ Rapid Response ___ Code Blue ___ Other (describe below) Pastoral Care Referral From _x__ Patient ___ Family ___ Nurse ___ Physician ___ Job Developer ___ Production Potter ___ Other (describe below) Sacrament/Intervention _x__ Active listening ___ Anointing ___ Restorationist ___ Bereavement ___ Communion _x__ Kimberly exploration ___ _x__ Life review _x__ Prayer ___ Reconciliation ___ Sacrament of Sick _x__ Supportive presence ___ Wedding ___ Other (describe below) Pastoral Comments patient is very welcoming of spiritual care and visit of land examiner; pt gives some life review that revolves mostly around his kimberly journey; pt identifies as a Yazidi that has a Samaritan understanding and experience; pt states that he has seen people healed and believes that it is possible for him too; pt states he is waiting on God for that healing; pt welcomes further visits from this land examiner; pt expresses thanks for the prayer offered for patient;
--- NOTE | 2023-02-01 16:18 | REHABEVAL_ITS ---
Admission Information Primary Diagnosis:: SAH, c. albicans fungemia, afib with RVR. Status Changes from Prescreening?: No changes Identified Actual Problem List:: Cognitve Impr/Memory Loss, Mobility Impaired, Self Care Deficit and Diabetes, Hypoglycemia Potential Problem List:: DVT, Bleeding, Infection, UTI, Aspiration, Falls, Skin Integrity and Depression Risk of Complications DVT: STEVEN Sandoval Bleeding: Monitor Lab Values, Nursing to Teach Precautions for anti-coagulation therapy., Wound, if applicable, to be assessed every shift. and Stroke patients assessed for lethargy or change in status. Infection: Clinical Staff to Monitor for S/S of infection: and S/S of infection include fever, redness, warmth, etc. Urinary Tract Infection: Monitor for frequency, burning, discomfort, or incontinence. and Nursing will obtain urine sample for urinalysis and C&S when ordered. Aspiration: Clinical staff will monitor for coughing, drooling, congestion., Speech will evaluate swallowing and dsyphasia. and Nursing will monitor patient swallowing during meals. Falls: Patient will be evaluated for Fall Precautions and Patient will be placed on Fall Precautions as indicated per protocol. Skin Breakdown: Nursing will assess skin daily using assessment tool. and Nursing will place on Skin Breakdown Precautions as indicated. Pain: Clinical staff will assess patient's pain level per protocol., Medications will be given, if needed, and the pain level reassessed. and Other methods: Massage, distraction, decrease stimulus, etc. used PRN. Plan of Care Patient requires physician specializing in physical medicine and rehab oversight to provide close medical supervision of rehab issues including: Pain Management, Sleep Problems, Bowel and Bladder, Medical and co-morbidity Management, DVT prophylaxis, Rehabilitation Leadership and Coordination of treatment team Patient needs Physical Therapy: For a minimum of 1 hour and At least 5 out of 7 days Patient needs Physical Therapy to improve:: Mobility, Strengthening, Transfers, Stretching, ROM, Endurance, Stairs, Gait and Balance Patient needs Occupational Therapy: For a minimum of 1 hour and At least 5 out of 7 days Patient needs Occupational Therapy to improve ADL's incl.: Eating, Grooming, Bathing, Dressing, Toileting, Toilet transfers, Higher functioning activities, Household tasks, Adaptive Equipment and Other activities as determined Patient requires speech therapy: For a minimum of 1 hour and At least 5 out of 7 days Patient requires speech therapy for: Swallowing, Cognition, Language Skills and Compensatory Strategies Patient requires 24/7 Rehabilitation Nursing for: Pain Issues, Identifying and preventing risk factors, Monitoring and reporting current medical conditions, Assisting with ambulation, transfer, and all ADL's, Teaching patients about disease process and medications, Family teaching, Providing safe environment, Bowel and Bladder Issues, Skin integrity and Medication Management Patient needs Computer Programming Professor/ Case Management for: Discharge Planning, Arranging Home Equipment or Services and Family Interventions Patient needs Dietary and Nutrition Services for: Adequate Nutrition, Nutritional Supplements and Nutritional Education Goals Patient will remain: free from falls and or injury at time of discharge. Patient will perform bed mobility at: Standby Assist. Patient will complete transfers from bed to chair at: Standby Assist. Patient will ambulate: with standby assist, with LRD and - (150 feet) Patient will complete upper body dressing at: - (Setup.) Patient will complete lower body dressing at: - (CGA) Patient will complete toileting at: - (CGA) Patient will perform bathing at: Standby Assist. Patient will complete grooming at: - (CGA) Patient will complete home management skills at: Standby Assist. Patient will achieve: with standby assist Patient will have pain level of: of 3 or less Patient's skin will: remain intact and free from infection. Patient will receive: adequate nutrition. Discharge Planning Pt Prognosis for Sig. Practical Improv. w/in Reasonable Time: Fair Estimated Length of stay (days): 21 Anticipated D/C Destination: Home with Outpt Therapy Was Preadmission Assessment Accurate?: Yes
[2023-02-01 17:56] LABS: Bedside Glucose 342 mg/dL (74-106)
[2023-02-01] MEDS: Insulin Lispro 100 UNIT/ML INSULN.PEN SC (18:21)
[2023-02-01] MEDS: Insulin Lispro 100 UNIT/ML INSULN.PEN 12 UNIT SC (18:22)
[2023-02-01] MEDS: Tamsulosin HCl 0.4 MG Capsule PO (18:22)
[2023-02-01] MEDS: MELATONIN 3 MG TABLET 6 MG PO (21:22)
[2023-02-01 22:21] LABS: Bedside Glucose 379 mg/dL (74-106)
[2023-02-02 02:21] LABS: Bedside Glucose 329 mg/dL (74-106)
[2023-02-02 06:16] LABS: Bedside Glucose 297 mg/dL (74-106)
[2023-02-02 07:45] VITALS: BP 116/79; PULSE 98
[2023-02-02] MEDS: Calcium Carb/Vitamin D 1 TABLET Tablet PO (07:45)
[2023-02-02] MEDS: Loratadine 10 MG Tablet PO (07:45)
[2023-02-02] MEDS: hydrALAZINE 25 MG Tablet 75 MG PO ×2 (07:45→20:55)
[2023-02-02] MEDS: Carvedilol 6.25 MG Tablet PO ×2 (07:45→17:11)
[2023-02-02] MEDS: DULoxetine Hcl 30 MG Capsule PO (07:46)
[2023-02-02] MEDS: Losartan Potassium 100 MG Tablet PO (07:46)
[2023-02-02] MEDS: Acyclovir 200 MG Capsule 400 MG PO ×2 (07:46→20:57)
[2023-02-02] MEDS: dexAMETHasone 4 MG Tablet 2 MG PO (07:46)
[2023-02-02] MEDS: Pantoprazole Sodium 40 MG Tablet PO (07:46)
[2023-02-02] MEDS: Insulin Lispro 100 UNIT/ML INSULN.PEN 12 UNIT SC (07:47)
[2023-02-02] MEDS: levETIRAcetam 750 MG Tablet PO ×2 (07:47→20:57)
[2023-02-02] MEDS: Insulin Lispro 100 UNIT/ML INSULN.PEN SC ×3 (07:48→17:12)
[2023-02-02] MEDS: Insulin Glargine-YFGN 100 UNIT/ML Pen 30 UNIT SC (07:48)
[2023-02-02] MEDS: Menthol/Lanolin/Calamine/Znox 113 GM Tube 1 APPLIC TOPICAL ×2 (07:49→20:57)
[2023-02-02] MEDS: Lidocaine 5% Patch 1 PATCH TOPICAL (07:51)
[2023-02-02 08:20] VITALS: BP 116/79; PULSE 98; RESP 16; TEMP 36.8; O2SAT 99
[2023-02-02 10:05] LABS: Pathologist Review Reviewed
[2023-02-02 11:25] LABS: Bedside Glucose 322 mg/dL (74-106)
[2023-02-02] MEDS: Insulin Lispro 100 UNIT/ML INSULN.PEN 6 UNIT SC (11:54)
--- NOTE | 2023-02-02 12:25 | NURSING ---
Received call from Carolina Ordonez, Nurse coordinator for Dr. West (pt's transplant dr). She requested all labs be faxed to Dr West so that he will be able to closely monitor pt.
--- NOTE | 2023-02-02 14:58 | PN_ITS ---
Subjective Subjective Patient seen, examined. He feels weak, but otherwise in good spirits. Because of his dexamethasone, his sugars have been challenging, continue to adjust, titrate insulin. Objective Data Objective Data Vital Signs: Vital Signs Temp Pulse Resp BP Pulse Ox O2 Del Method 98.2 F 98 16 116/79 99 Room Air 02/02/23 08:20 02/02/23 08:20 02/02/23 08:20 02/02/23 08:20 02/02/23 08:20 02/02/23 08:20 Oxygen Delivery Method Room Air Weight: 84.2 kg Body Mass Index (BMI) 25.1 Intake & Output: Intake and Output for Last 24 Hours 01/31/23 02/01/23 02/02/23 23:59 23:59 23:59 Intake Total 2080 / 2080 720 / 720 Output Total 1070 / 1070 950 / 950 Balance 1010 / 1010 -230 / -230 Lab / Micro Data Result Diagrams: 02/01/23 05:49 02/01/23 05:49 Labs: Laboratory Results - last 24 hr 02/01/23 05:49: Diff Path Review Reviewed 02/01/23 17:37: POC Glucose 342 H 02/01/23 21:21: POC Glucose 379 H 02/02/23 02:01: POC Glucose 329 H 02/02/23 05:54: POC Glucose 297 H 02/02/23 11:02: POC Glucose 322 H Physical Exam Const alert General Appearance: cooperative HEENT normocephalic Eyes PERRL and EOMs intact bilaterally Neck supple, no JVD and no carotid bruits Resp normal respiratory effort, normal air movement and clear to auscultation bilaterally Cardio regular rate and regular rhythm GI normal to inspection, nondistended, normoactive bowel sounds, non-tender and non-distended Extremity normal capillary refill General Extremity: Negative for edema Skin no rashes or lesions noted General Skin Exam: no breakdown Psych affect normal Appearance: appropriate Assessment & Plan Assessment/Plan (1) Debility: (2) Multiple myeloma: (3) Sepsis: (4) Fungemia: (5) Gosia albicans infection: (6) Atrial fibrillation with rapid ventricular response: (7) Coronary artery disease: (8) Heart failure with reduced ejection fraction: (9) Diabetes mellitus: (10) Hypertension: (11) Hyperlipidemia: PLAN: Plan 62 year old male with multiple myeloma hospitalized for engineered cellular therapy, complicated by brain bleed, thrombocytopenia, sepsis, gosia albicans fungemia, atrial fibrillation with rapid ventricular response, admitted to for 3 hours daily rehabilitation, strengthening, prior to discharge home with . * Debility - PT/OT. * Cognition - ST. * Pain - Lidoderm patch daily prn. * Bowel - Miralax 17gm daily prn, senna/colace 2 tablets bid, Dulcolax 10mg pr x 1 prn, MOM 30ml po x 1 prn, Imodium 2mg q6h prn. * DVT prophylaxis - on Eliquis. * Herpes Zoster prophylaxis - Acyclovir 400mg bid. * Atrial fibrillation - Coreg 6.25mg bidcm, Eliquis 5mg bid. * Calcium deficiency - Calcium D 1 tablet daily. * Neurotoxicity - Dexamethasone taper. * Diabetes Mellitus II - Glargine 35 units breakfast, Lispro 15 units, 11 units, 15 units, also Lispro SSI. * Hypertension - Coreg 6.25mg bidcm, Losartan 100mg daily, Hydralazine 75mg bid. * Seizure disorder - Keppra 750mg bid. * Allergic rhinitis - Loratadine 10mg daily. * Insomnia - Melatonin 6mg qhs. * GERD - Pantoprazole 40mg daily. * Nausea - Compazine 10mg q6h prn. * PCP prophylaxis - Bactrim DS 1 tablet MWF. * BPH - Tamsulosin 0.4mg daily. * Thrombocytopenia - Nplate 84.1mcg sc qweek. Capacity Capacity Assessment Tool Can the patient make a choice & communicate that choice?: Yes Can the patient understand benefits, risks and alternatives?: Yes Can the patient make a logical, rational choice?: Yes Is the choice the patient makes consistent w/ their values?: Yes Is there an impending, emergent risk to the patient?: No Does the patient have an Advance Directive?: No Is there a Surrogate Available?: Yes i.e. HCPOA: Yes i.e. close relative (spouse, child, parent, sibling)?: Yes
[2023-02-02 16:30] LABS: Bedside Glucose 413 mg/dL (74-106)
[2023-02-02] MEDS: Tamsulosin HCl 0.4 MG Capsule PO (17:11)
[2023-02-02] MEDS: Insulin Lispro 100 UNIT/ML INSULN.PEN 15 UNIT SC (17:12)
[2023-02-02 20:55] VITALS: BP 96/69; PULSE 105
[2023-02-02] MEDS: MELATONIN 3 MG TABLET 6 MG PO (20:57)
[2023-02-02] MEDS: Senna/Docusate Sodium 1 Tablet 2 TABLET PO (20:57)
[2023-02-02 21:25] VITALS: BP 96/69; PULSE 97; RESP 18; TEMP 35.2; O2SAT 97
[2023-02-02 21:36] LABS: Bedside Glucose 396 mg/dL (74-106)
[2023-02-03 02:51] LABS: Bedside Glucose 337 mg/dL (74-106)
[2023-02-03 05:18] VITALS: BMI 25.1
[2023-02-03 07:05] LABS: Bedside Glucose 360 mg/dL (74-106)
[2023-02-03 07:44] VITALS: BP 114/72; PULSE 100; RESP 16; TEMP 36.6; O2SAT 98
[2023-02-03] MEDS: Lidocaine 5% Patch 1 PATCH TOPICAL (07:50)
[2023-02-03] MEDS: Calcium Carb/Vitamin D 1 TABLET Tablet PO (07:51)
[2023-02-03] MEDS: dexAMETHasone 4 MG Tablet 2 MG PO (07:51)
[2023-02-03] MEDS: Carvedilol 6.25 MG Tablet PO ×2 (07:51→17:32)
[2023-02-03] MEDS: Smz/Tmp Ds Tablet 1 TABLET PO (07:51)
[2023-02-03] MEDS: DULoxetine Hcl 30 MG Capsule PO (07:52)
[2023-02-03] MEDS: Losartan Potassium 100 MG Tablet PO (07:52)
[2023-02-03] MEDS: levETIRAcetam 750 MG Tablet PO ×2 (07:52→20:44)
[2023-02-03] MEDS: Loratadine 10 MG Tablet PO (07:52)
[2023-02-03] MEDS: Pantoprazole Sodium 40 MG Tablet PO (07:52)
[2023-02-03] MEDS: Insulin Lispro 100 UNIT/ML INSULN.PEN SC ×3 (08:01→17:32)
[2023-02-03] MEDS: Insulin Lispro 100 UNIT/ML INSULN.PEN 25 UNIT SC ×2 (08:03→17:33)
[2023-02-03] MEDS: Insulin Glargine-YFGN 100 UNIT/ML Pen 35 UNIT SC ×2 (08:04→17:34)
--- NOTE | 2023-02-03 08:34 | PN_ITS ---
Subjective Subjective Patient seen, examined. He feels well, has no complaints. His blood sugars continue to be challenging due to steroid taper, will continue to titrate insulin. Objective Data Objective Data Vital Signs: Vital Signs Temp Pulse Resp BP Pulse Ox O2 Del Method 97.9 F 100 16 114/72 98 Room Air 02/03/23 07:44 02/03/23 07:44 02/03/23 07:44 02/03/23 07:44 02/03/23 07:44 02/03/23 07:44 Oxygen Delivery Method Room Air Weight: 84.2 kg Body Mass Index (BMI) 25.1 Intake & Output: Intake and Output for Last 24 Hours 02/01/23 02/02/23 02/03/23 23:59 23:59 23:59 Intake Total 2080 / 2080 1320 / 1320 200 / 200 Output Total 1070 / 1070 1700 / 1700 1275 / 1275 Balance 1010 / 1010 -380 / -380 -1075 / -1075 Lab / Micro Data Result Diagrams: 02/01/23 05:49 02/01/23 05:49 Labs: Laboratory Results - last 24 hr 02/01/23 05:49: Diff Path Review Reviewed 02/02/23 11:02: POC Glucose 322 H 02/02/23 16:03: POC Glucose 413 H 02/02/23 21:04: POC Glucose 396 H 02/03/23 02:31: POC Glucose 337 H 02/03/23 06:25: POC Glucose 360 H Physical Exam Const alert General Appearance: cooperative HEENT normocephalic Eyes PERRL and EOMs intact bilaterally Neck supple, no JVD and no carotid bruits Resp normal respiratory effort, normal air movement and clear to auscultation bilaterally Cardio regular rate and regular rhythm GI normal to inspection, nondistended, normoactive bowel sounds, non-tender and non-distended Extremity normal capillary refill General Extremity: Negative for edema Skin no rashes or lesions noted General Skin Exam: no breakdown Psych affect normal Appearance: appropriate Assessment & Plan Assessment/Plan (1) Debility: (2) Multiple myeloma: (3) Sepsis: (4) Fungemia: (5) Gosia albicans infection: (6) Atrial fibrillation with rapid ventricular response: (7) Coronary artery disease: (8) Heart failure with reduced ejection fraction: (9) Diabetes mellitus: (10) Hypertension: (11) Hyperlipidemia: PLAN: Plan 62 year old male with multiple myeloma hospitalized for engineered cellular therapy, complicated by brain bleed, thrombocytopenia, sepsis, gosia albicans fungemia, atrial fibrillation with rapid ventricular response, admitted to for 3 hours daily rehabilitation, strengthening, prior to discharge home with . * Debility - PT/OT. * Cognition - ST. * Pain - Lidoderm patch daily prn. * Bowel - Miralax 17gm daily prn, senna/colace 2 tablets bid, Dulcolax 10mg pr x 1 prn, MOM 30ml po x 1 prn, Imodium 2mg q6h prn. * DVT prophylaxis - on Eliquis. * Herpes Zoster prophylaxis - Acyclovir 400mg bid. * Atrial fibrillation - Coreg 6.25mg bidcm, Eliquis 5mg bid. * Calcium deficiency - Calcium D 1 tablet daily. * Neurotoxicity - Dexamethasone taper. * Diabetes Mellitus II - Increase Glargine to 35 units bidac, Increase Lispro to 25 units bidcm, 20 units lunch, also Lispro SSI. * Hypertension - Coreg 6.25mg bidcm, Losartan 100mg daily, Hydralazine 75mg bid. * Seizure disorder - Keppra 750mg bid. * Allergic rhinitis - Loratadine 10mg daily. * Insomnia - Melatonin 6mg qhs. * GERD - Pantoprazole 40mg daily. * Nausea - Compazine 10mg q6h prn. * PCP prophylaxis - Bactrim DS 1 tablet MWF. * BPH - Tamsulosin 0.4mg daily. * Thrombocytopenia - Nplate 84.1mcg sc qweek. Capacity Capacity Assessment Tool Can the patient make a choice & communicate that choice?: Yes Can the patient understand benefits, risks and alternatives?: Yes Can the patient make a logical, rational choice?: Yes Is the choice the patient makes consistent w/ their values?: Yes Is there an impending, emergent risk to the patient?: No Does the patient have an Advance Directive?: No Is there a Surrogate Available?: Yes i.e. HCPOA: Yes i.e. close relative (spouse, child, parent, sibling)?: Yes
[2023-02-03 09:32] VITALS: BP 114/72; PULSE 100
[2023-02-03] MEDS: Acyclovir 200 MG Capsule 400 MG PO ×2 (09:32→20:44)
[2023-02-03] MEDS: hydrALAZINE 25 MG Tablet 75 MG PO ×2 (09:32→20:44)
[2023-02-03] MEDS: Menthol/Lanolin/Calamine/Znox 113 GM Tube 1 APPLIC TOPICAL ×2 (09:33→20:44)
[2023-02-03] MEDS: Insulin Lispro 100 UNIT/ML INSULN.PEN 20 UNIT SC (12:22)
[2023-02-03 12:41] LABS: Bedside Glucose 285 mg/dL (74-106)
[2023-02-03 16:45] LABS: Bedside Glucose 394 mg/dL (74-106)
[2023-02-03] MEDS: Tamsulosin HCl 0.4 MG Capsule PO (17:32)
[2023-02-03 20:31] VITALS: BP 115/71; PULSE 107; RESP 16; TEMP 36.3; O2SAT 97
[2023-02-03] MEDS: MELATONIN 3 MG TABLET 6 MG PO (20:43)
[2023-02-03 20:44] VITALS: BP 115/71; PULSE 107
[2023-02-03] MEDS: Senna/Docusate Sodium 1 Tablet 2 TABLET PO (20:44)
[2023-02-03 22:20] LABS: Bedside Glucose 324 mg/dL (74-106)
[2023-02-04 02:36] LABS: Bedside Glucose 240 mg/dL (74-106)
[2023-02-04 06:55] LABS: Bedside Glucose 177 mg/dL (74-106)
[2023-02-04 07:54] VITALS: BP 114/76; PULSE 88; RESP 16; TEMP 36.4; O2SAT 98
[2023-02-04] MEDS: Lidocaine 5% Patch 1 PATCH TOPICAL (08:17)
[2023-02-04] MEDS: DULoxetine Hcl 30 MG Capsule PO (08:18)
[2023-02-04] MEDS: Acyclovir 200 MG Capsule 400 MG PO ×2 (08:18→21:54)
[2023-02-04] MEDS: Losartan Potassium 100 MG Tablet PO (08:19)
[2023-02-04] MEDS: Carvedilol 6.25 MG Tablet PO ×2 (08:20→16:54)
[2023-02-04] MEDS: Calcium Carb/Vitamin D 1 TABLET Tablet PO (08:20)
[2023-02-04] MEDS: dexAMETHasone 4 MG Tablet 2 MG PO (08:21)
[2023-02-04] MEDS: Pantoprazole Sodium 40 MG Tablet PO (08:22)
[2023-02-04] MEDS: Loratadine 10 MG Tablet PO (08:23)
[2023-02-04] MEDS: levETIRAcetam 750 MG Tablet PO ×2 (08:23→21:54)
[2023-02-04] MEDS: Menthol/Lanolin/Calamine/Znox 113 GM Tube 1 APPLIC TOPICAL ×2 (08:23→21:56)
[2023-02-04 08:24] VITALS: PULSE 88
[2023-02-04] MEDS: hydrALAZINE 25 MG Tablet 75 MG PO ×2 (08:24→21:52)
[2023-02-04] MEDS: Insulin Lispro 100 UNIT/ML INSULN.PEN SC ×3 (08:27→16:54)
[2023-02-04] MEDS: Insulin Glargine-YFGN 100 UNIT/ML Pen 35 UNIT SC ×2 (08:28→16:55)
[2023-02-04] MEDS: Insulin Lispro 100 UNIT/ML INSULN.PEN 20 UNIT SC ×2 (09:25→16:54)
[2023-02-04 11:40] LABS: Bedside Glucose 191 mg/dL (74-106)
[2023-02-04] MEDS: Insulin Lispro 100 UNIT/ML INSULN.PEN 15 UNIT SC (12:14)
[2023-02-04] MEDS: Tamsulosin HCl 0.4 MG Capsule PO (16:54)
[2023-02-04 16:56] LABS: Bedside Glucose 231 mg/dL (74-106)
[2023-02-04 19:18] VITALS: BP 97/59; PULSE 59; RESP 14; TEMP 36.6; O2SAT 98
[2023-02-04 21:52] VITALS: PULSE 58
[2023-02-04] MEDS: MELATONIN 3 MG TABLET 6 MG PO (21:53)
[2023-02-04 22:00] VITALS: PULSE 58; RESP 15; O2SAT 98
[2023-02-04 22:00] LABS: Bedside Glucose 256 mg/dL (74-106)
[2023-02-05 02:42] LABS: Bedside Glucose 265 mg/dL (74-106)
[2023-02-05 06:51] LABS: Bedside Glucose 289 mg/dL (74-106)
[2023-02-05] MEDS: Pantoprazole Sodium 40 MG Tablet PO (07:42)
[2023-02-05] MEDS: Loratadine 10 MG Tablet PO (07:42)
[2023-02-05] MEDS: DULoxetine Hcl 30 MG Capsule PO (07:42)
[2023-02-05] MEDS: Carvedilol 6.25 MG Tablet PO ×2 (07:43→16:59)
[2023-02-05] MEDS: levETIRAcetam 750 MG Tablet PO ×2 (07:43→21:50)
[2023-02-05] MEDS: Calcium Carb/Vitamin D 1 TABLET Tablet PO (07:43)
[2023-02-05] MEDS: Insulin Lispro 100 UNIT/ML INSULN.PEN SC ×3 (07:44→16:55)
[2023-02-05] MEDS: Insulin Glargine-YFGN 100 UNIT/ML Pen 35 UNIT SC ×2 (07:44→16:56)
[2023-02-05] MEDS: Insulin Lispro 100 UNIT/ML INSULN.PEN 20 UNIT SC ×2 (07:45→16:55)
[2023-02-05 07:47] VITALS: PULSE 78
[2023-02-05] MEDS: hydrALAZINE 25 MG Tablet 75 MG PO ×2 (07:47→21:51)
[2023-02-05] MEDS: Menthol/Lanolin/Calamine/Znox 113 GM Tube 1 APPLIC TOPICAL ×2 (07:48→21:51)
[2023-02-05] MEDS: Losartan Potassium 100 MG Tablet PO (07:49)
[2023-02-05 08:00] VITALS: BP 125/77; PULSE 97; RESP 15; TEMP 36.6; O2SAT 97
[2023-02-05] MEDS: Acyclovir 200 MG Capsule 400 MG PO ×2 (10:37→21:50)
[2023-02-05] MEDS: Lidocaine 5% Patch 1 PATCH TOPICAL (10:40)
[2023-02-05] MEDS: dexAMETHasone 4 MG Tablet 2 MG PO (10:40)
[2023-02-05 11:41] LABS: Bedside Glucose 288 mg/dL (74-106)
[2023-02-05] MEDS: Insulin Lispro 100 UNIT/ML INSULN.PEN 15 UNIT SC (11:58)
[2023-02-05 16:36] LABS: Bedside Glucose 389 mg/dL (74-106)
[2023-02-05] MEDS: Tamsulosin HCl 0.4 MG Capsule PO (16:59)
[2023-02-05 19:02] VITALS: BP 102/64; PULSE 113; RESP 16; TEMP 36.7; O2SAT 96
[2023-02-05 21:21] LABS: Bedside Glucose 270 mg/dL (74-106)
[2023-02-05] MEDS: MELATONIN 3 MG TABLET 6 MG PO (21:50)
[2023-02-05 21:51] VITALS: PULSE 105
[2023-02-05 22:00] VITALS: PULSE 105; RESP 16; O2SAT 96
[2023-02-06 02:55] LABS: Bedside Glucose 162 mg/dL (74-106)
[2023-02-06 05:00] VITALS: BMI 25.0
[2023-02-06 06:00] VITALS: BMI 25.0
[2023-02-06 06:36] LABS: Bedside Glucose 269 mg/dL (74-106)
[2023-02-06 07:42] VITALS: BP 129/74; PULSE 99; RESP 16; TEMP 36.4; O2SAT 98
[2023-02-06] MEDS: Insulin Lispro 100 UNIT/ML INSULN.PEN SC ×3 (09:00→17:20)
[2023-02-06] MEDS: Insulin Glargine-YFGN 100 UNIT/ML Pen 35 UNIT SC (09:01)
[2023-02-06] MEDS: Acyclovir 200 MG Capsule 400 MG PO ×2 (09:02→21:53)
[2023-02-06] MEDS: Pantoprazole Sodium 40 MG Tablet PO (09:02)
[2023-02-06] MEDS: Smz/Tmp Ds Tablet 1 TABLET PO (09:02)
[2023-02-06 09:03] VITALS: PULSE 99
[2023-02-06] MEDS: hydrALAZINE 25 MG Tablet 75 MG PO (09:03)
[2023-02-06] MEDS: Calcium Carb/Vitamin D 1 TABLET Tablet PO (09:03)
[2023-02-06] MEDS: Insulin Lispro 100 UNIT/ML INSULN.PEN 20 UNIT SC ×2 (09:04→17:19)
[2023-02-06] MEDS: Carvedilol 6.25 MG Tablet PO ×2 (09:05→17:17)
[2023-02-06] MEDS: Menthol/Lanolin/Calamine/Znox 113 GM Tube 1 APPLIC TOPICAL ×2 (09:05→21:51)
[2023-02-06] MEDS: Losartan Potassium 100 MG Tablet PO (09:05)
[2023-02-06] MEDS: levETIRAcetam 750 MG Tablet PO ×2 (09:05→21:52)
[2023-02-06] MEDS: DULoxetine Hcl 30 MG Capsule PO (09:06)
[2023-02-06] MEDS: Loratadine 10 MG Tablet PO (09:06)
[2023-02-06] MEDS: Lidocaine 5% Patch 1 PATCH TOPICAL (09:06)
--- NOTE | 2023-02-06 11:26 | PCM.PROGNOTE ---
Subjective Subjective Jad was seen on team rounds today. His , Tawny, was present in the room. Afebrile VSS Maintaining appropriate oxygen saturation on RA Oral intake is good Blood sugar record was reviewed. Blood sugars are not adequately controlled. Dexamethasone is currently at 1 mg daily with breakfast and will conclude on 02/10/2023. Discussed with nursing - no problems that need addressed Reviewed the PT/OT/ST notes Medication list reviewed. Jad denies lightheadedness, vertigo, CP, SOB at rest, SOB with exertion, cough, nausea, vomiting, abd pain, diarrhea, constipation, dysuria, calf pain and ankle swelling. He also denies mouth pain, painful swallowing and painful urination. I personally reviewed Dr. Traore's H&P at admission. Karlos was admitted to the [facility] on 12/19/2022 for engineered cellular therapy for multiple myeloma. On 12/28/2022 he had worsening mental status and a fever of 100.8 while on Zosyn. Blood cultures were negative and chest x-ray was negative. On 414 he experienced atrial fibrillation with rapid ventricular response. Lactic acid was increased despite 4 L of IV fluids. He was admitted to the ICU, treated for atrial fibrillation and continued on Zosyn. He was pancultured. On 01/10/2023 he had severe thrombocytopenia and a subarachnoid hemorrhage. 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 Objective Data Objective Data Vital Signs: Vital Signs Temp Pulse Resp BP Pulse Ox O2 Del Method 97.5 F L 99 16 129/74 H 98 Room Air 02/06/23 07:42 02/06/23 09:03 02/06/23 07:42 02/06/23 07:42 02/06/23 07:42 02/06/23 07:42 Oxygen Delivery Method Room Air Weight: 184 lb 15.485 oz Body Mass Index (BMI) 25.0 Intake & Output: Intake and Output for Last 24 Hours 02/04/23 02/05/23 02/06/23 23:59 23:59 23:59 Intake Total 1640 / 1640 1720 / 1720 360 / 360 Output Total 2049 / 2049 1750 / 1750 250 / 250 Balance -410 / -410 -30 / -30 110 / 110 Lab / Micro Data Result Diagrams: 02/07/23 05:36 02/07/23 05:36 Labs: Laboratory Results - last 24 hr 02/05/23 11:20: POC Glucose 288 H 02/05/23 16:10: POC Glucose 389 H 02/05/23 21:01: POC Glucose 270 H 02/06/23 02:36: POC Glucose 162 H 02/06/23 05:58: POC Glucose 269 H Physical Exam Const alert and no apparent distress Constitutional Narrative: Sitting in the bed for rounds. General Appearance: cooperative HEENT Mouth: dry mucous membranes Resp clear to auscultation bilaterally Effort and Inspection: Negative for tachypneic or labored Cardio regular rate, regular rhythm and no gallops Cardio Narrative: No ectopy GI normal to inspection, nondistended, normoactive bowel sounds, soft to palpation and non-tender GI Narrative: No guarding with palpation Extremity no calf tenderness General Extremity: Negative for edema Skin General Skin Exam: no breakdown Rashes: no rashes Psych cooperative Psych Narrative: Affect is flat Assessment & Plan Assessment/Plan (1) Debility: (2) Subarachnoid hemorrhage: (3) Cognitive change: (4) Atrial fibrillation with rapid ventricular response: (5) Fungemia: (6) Sepsis: (7) Hyperlipidemia: (8) Multiple myeloma: (9) Type 2 diabetes mellitus: PLAN: Uncontrolled (10) Hypertension: (11) Heart failure with reduced ejection fraction: (12) Coronary artery disease: (13) Depression: (14) Generalized weakness: (15) Thrombocytopenia: (16) Macrocytic anemia: PLAN: Plan 1. Continue therapy 2. Changed the glargine to 60 units in the a.m. and 30 units every afternoon. Change lispro to 15 units 3 times daily AC and increase the sliding scale insulin to a high scale. 3. CBC with differential, CMP, magnesium, ESR and CRP in the a.m. 4. Decrease the Hydralazine to 50 mg BID........ he is currently taking carvedilol, hydralazine, Cozaar and Flomax......all Lower BP. HR is variable and has ranged from 99-105 today. Most recent BP lying in sitting is 98......did not check standing. 5. Encouraged increased fluid intake.......has polyuria due to uncontrolled BS's. Charges/Coding Visit Charges Inpatient E&M: 28865 Subs Hosp L2
[2023-02-06 12:15] LABS: Bedside Glucose 214 mg/dL (74-106)
[2023-02-06] MEDS: Insulin Glargine-YFGN 100 UNIT/ML Pen 20 UNIT SC (12:23)
--- NOTE | 2023-02-06 12:51 | CASEMGMT ---
Social Work IDT met with patient and for Team meeting. Discussed patient's progress in PT/OT/ST/SN. Educated to MMO CM insurance with NRD 02/06 and continued stay is not guaranteed with each review. Pt's goal is to return home with at [facility]. Educated and provided Stroke Support Group brochure. Will ReTeam weekly. SW to continue to follow. Olga Sebastian, BACTERIOLOGY TEACHER BIOMEDICAL ENGINEERING TECHNICIAN
[2023-02-06] MEDS: Tamsulosin HCl 0.4 MG Capsule PO (17:17)
[2023-02-06 17:39] LABS: Bedside Glucose 304 mg/dL (74-106)
[2023-02-06 19:41] VITALS: BP 95/58; PULSE 100; RESP 16; TEMP 36.2; O2SAT 98
[2023-02-06 21:50] VITALS: PULSE 111
[2023-02-06] MEDS: hydrALAZINE 25 MG Tablet 50 MG PO (21:50)
[2023-02-06] MEDS: Insulin Glargine-YFGN 100 UNIT/ML Pen 30 UNIT SC (21:51)
[2023-02-06] MEDS: MELATONIN 3 MG TABLET 6 MG PO (21:52)
[2023-02-06 21:56] LABS: Bedside Glucose 360 mg/dL (74-106)
[2023-02-06 21:57] VITALS: PULSE 111; RESP 16; O2SAT 98
[2023-02-07 02:30] LABS: Bedside Glucose 278 mg/dL (74-106)
[2023-02-07 05:47] LABS: Absolute Lymphocyte Count 1.29 X10^3/uL (0.83-4.51); Absolute Neutrophil Count 4.7 X10^3/uL (2.0-7.7); Basophil# 0.03 X10^3/uL; Basophil% 0.4 % (0-1); Eosinophil# 0.01 X10^3/uL; Eosinophils% 0.1 % (0-5); Hematocrit 25.7 % (40-54); Hemoglobin 8.7 g/dL (13.0-16.5); Lymphocyte # 1.29 X10^3/ul (0.83-4.51); Mean Corp Hgb Conc 33.9 g/dL (32-36); Mean Corpuscular Hgb 35.7 pg (27.0-32.0); Mean Corpuscular Volume 105.3 fL (80-94); Mean Platelet Vol. 9.9 fl (6.2-12.0); Monocyte# 1.25 X10^3/uL; Monocyte% 16.4 % (0-10); NRBC Flagged by Analyzer 0.5 % (0-5); Neutrophil # 4.65 X10^3/uL (2.7-7.7); Neutrophil % 61.1 % (47-70); POSITIVE COUNT YES; POSITIVE MORPHOLOGY YES; Platelet Count 237 K/mm3 (150-450); RBC Distribution Width CV 22.1 % (11.6-14.6); RBC Distribution Width SD 84.4 fl (35.1-43.9); Red Blood Count 2.44 M/mm3 (4.6-6.2); White Blood Count 7.6 K/mm3 (4.4-11.0)
[2023-02-07 05:51] LABS: Differential Indicated SCAN CRITERIA MET
[2023-02-07 06:12] LABS: AST(SGOT) 17 U/L (15-37); Alanine Aminotransfer ALT/SGPT 53 U/L (16-61); Albumin, Serum 2.8 g/dL (3.2-5.0); Alkaline Phosphatase 92 U/L (45-117); Anion Gap 6 (5-15); BUN 38 mg/dL (7-18); BUN/Creat Ratio 59.9 RATIO (10-20); Calcium,Total 9.1 mg/dL (8.5-10.1); Chloride 105 mmol/L (98-107); Creatinine, Serum 0.63 mg/dL (0.70-1.30); EST Glomerular Filtration Rate 135 mL/min (>60); Est Glom Filt Rate - Afr Amer 163 mL/min (>60); Estimated Creatinine Clearance 130.02 ml/min; Globulin 2.9 g/dL (2.2-4.2); Glucose 258 mg/dL (74-106); Magnesium 1.5 mg/dL (1.6-2.6); Potassium 3.7 mmol/L (3.5-5.1); Protein, Total 5.7 g/dL (6.4-8.2); Sodium Level 136 mmol/L (136-145)
[2023-02-07 06:21] LABS: Anisocytosis 1+; Differential Comment SCANNED; Macrocytosis 1+
[2023-02-07 06:26] LABS: Bedside Glucose 229 mg/dL (74-106)
[2023-02-07 07:24] VITALS: BP 115/78; PULSE 100; RESP 16; TEMP 36.6; O2SAT 97
[2023-02-07 07:36] LABS: Erythrocyte Sedimentation Rate 16 mm/hr (0-20)
[2023-02-07 08:00] VITALS: O2SAT 99
[2023-02-07] MEDS: Insulin Lispro 100 UNIT/ML INSULN.PEN 20 UNIT SC ×3 (09:13→17:37)
[2023-02-07 09:14] VITALS: PULSE 100
[2023-02-07] MEDS: Insulin Lispro 100 UNIT/ML INSULN.PEN SC ×3 (09:14→17:37)
[2023-02-07] MEDS: hydrALAZINE 25 MG Tablet 50 MG PO ×2 (09:14→21:57)
[2023-02-07] MEDS: Acyclovir 200 MG Capsule 400 MG PO ×2 (09:15→21:59)
[2023-02-07] MEDS: Losartan Potassium 100 MG Tablet PO (09:15)
[2023-02-07] MEDS: Pantoprazole Sodium 40 MG Tablet PO (09:15)
[2023-02-07] MEDS: Calcium Carb/Vitamin D 1 TABLET Tablet PO (09:15)
[2023-02-07] MEDS: Carvedilol 6.25 MG Tablet PO ×2 (09:15→17:39)
[2023-02-07] MEDS: Senna/Docusate Sodium 1 Tablet 2 TABLET PO ×2 (09:15→21:59)
[2023-02-07] MEDS: DULoxetine Hcl 30 MG Capsule PO (09:15)
[2023-02-07] MEDS: levETIRAcetam 750 MG Tablet PO ×2 (09:15→21:59)
[2023-02-07] MEDS: Loratadine 10 MG Tablet PO (09:15)
[2023-02-07] MEDS: Insulin Glargine-YFGN 100 UNIT/ML Pen 60 UNIT SC (09:16)
[2023-02-07] MEDS: Lidocaine 5% Patch 1 PATCH TOPICAL (09:30)
[2023-02-07] MEDS: Menthol/Lanolin/Calamine/Znox 113 GM Tube 1 APPLIC TOPICAL ×2 (09:31→21:58)
--- NOTE | 2023-02-07 11:49 | PCM.PROGNOTE ---
Subjective Subjective Afebrile VSS-over the past 48 hours the heart rate has varied from 78-113. Blood pressure this a.m. is 115/78 and hydralazine was decreased to 50 mg twice a day yesterday. Maintaining appropriate oxygen saturation on RA-97 to 99% on room air. Oral intake is good I&O has been negative 870. Likely due to polyuria from uncontrolled BS's. The blood sugar record was reviewed. Blood sugars are trending down. Fasting this morning was 229 and the lunch blood sugar is 197. No adjustment to the dosing today as changes were made yesterday and he got 60 units of Glargine this AM. Discussed with nursing - no problems that need addressed Reviewed the PT/OT/ST notes Medication list reviewed. All lab drawn this morning was personally reviewed. The hemoglobin has dropped from 11 on -8.7 today. White blood cell count is normal at 7.6 and the platelets are normal at 237,000. There are 61.1% neutrophils and 5% immature granulocytes. ESR is 16. Sodium is now normal at 136 and the potassium is 3.7. The BUN is 38 with a creatinine of 0.63 which is better than 02/01/2023 when the BUN was 56 and the creatinine 0.85. Magnesium is low at 1.5. LFTs are unremarkable and the CRP is 14.9. Jad's family brought a helmet in for him to wear? I talked to his dtr Staci and Jad wanted the helmet to prevent brain bleeds. Staci also tells me that she talked to her mother last night and thought they had agreed Jad is not ready to go home yet. Staci tells me that her mother would not be able to provide all the assistance he needs at this time. 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 Karlos denies CP, SOB, lightheadedness, N/V/abd pain, calf pain and dysuria. Objective Data Objective Data Vital Signs: Vital Signs Temp Pulse Resp BP Pulse Ox O2 Del Method 97.8 F 100 16 115/78 99 Room Air 02/07/23 07:24 02/07/23 09:14 02/07/23 07:24 02/07/23 07:24 02/07/23 08:00 02/07/23 10:00 Oxygen Delivery Method Room Air Weight: 184 lb 15.485 oz Body Mass Index (BMI) 25.0 Intake & Output: Intake and Output for Last 24 Hours 02/05/23 02/06/23 02/07/23 23:59 23:59 23:59 Intake Total 1720 / 1720 840 / 840 1650 / 1650 Output Total 1750 / 1750 800 / 800 1250 / 1250 Balance -30 / -30 40 / 40 400 / 400 Lab / Micro Data Result Diagrams: 02/07/23 05:36 02/07/23 05:36 Labs: Laboratory Results - last 24 hr 02/06/23 11:57: POC Glucose 214 H 02/06/23 17:19: POC Glucose 304 H 02/06/23 21:33: POC Glucose 360 H 02/07/23 02:08: POC Glucose 278 H 02/07/23 05:36: WBC 7.6, RBC 2.44 L, Hgb 8.7 L, Hct 25.7 L, MCV 105.3 H, MCH 35.7 H, MCHC 33.9, RDW Std Deviation 84.4 H, RDW Coeff of Saad 22.1 H, Plt Count 237, MPV 9.9, Immature Gran % (Auto) 5.000 H, Neut % (Auto) 61.1, Lymph % (Auto) 17.0 L, [place] % (Auto) 16.4 H, Eos % (Auto) 0.1, Baso % (Auto) 0.4, Absolute Neuts (auto) 4.7, Absolute Lymphs (auto) 1.29, Nucleated RBC % 0.5, Differential Comment SCANNED, Anisocytosis 1+, Macrocytosis 1+, ESR 16 02/07/23 05:36: Sodium 136, Potassium 3.7, Chloride 105, Carbon Dioxide 25.0, Anion Gap 6, BUN 38 H, Creatinine 0.63 L, Estim Creat Clear Calc 130.02, Est GFR (MDRD) Af Amer 163, Est GFR (MDRD) Non-Af 135, BUN/Creatinine Ratio 59.9 H, Glucose 258 H, Calcium 9.1, Magnesium 1.5 L, Total Bilirubin 0.30, AST 17, ALT 53, Alkaline Phosphatase 92, C-React Prot Ext Range 14.90 H, Total Protein 5.7 L, Albumin 2.8 L, Globulin 2.9, Albumin/Globulin Ratio 1.0 02/07/23 06:00: POC Glucose 229 H Physical Exam Const alert and no apparent distress Constitutional Narrative: Sitting in the bed for rounds. General Appearance: cooperative Resp clear to auscultation bilaterally Effort and Inspection: Negative for tachypneic or labored Cardio regular rate, regular rhythm and no gallops Cardio Narrative: No ectopy GI normal to inspection, nondistended, normoactive bowel sounds, soft to palpation and non-tender GI Narrative: No guarding with palpation Extremity no calf tenderness General Extremity: Negative for edema Skin General Skin Exam: no breakdown Rashes: no rashes Psych cooperative Psych Narrative: Affect is flat Assessment & Plan Assessment/Plan (1) Debility: (2) Subarachnoid hemorrhage: (3) Cognitive change: (4) Atrial fibrillation with rapid ventricular response: (5) Fungemia: (6) Sepsis: (7) Hyperlipidemia: (8) Multiple myeloma: (9) Type 2 diabetes mellitus: PLAN: Uncontrolled (10) Hypertension: (11) Heart failure with reduced ejection fraction: (12) Coronary artery disease: (13) Depression: (14) Generalized weakness: (15) Thrombocytopenia: (16) Macrocytic anemia: (17) Hypomagnesemia: PLAN: Plan 1. Continue therapy. I spoke with Jad and told him that the therapists and we all agree he is not yet ready for DC. I suggested he give us another week and then re-evaluate. Jad is having trouble recognizing his weaknesses and disability. I spoke with Staci and we think it would be a good idea to have a shared care day with Tawny and the therapists she gets to see how much assistance he still needs. I left a VM on Tawny's phone asking her to schedule a day with us. 2. Supplement the K+ to keep it at 4 at least in light of hx of AF. Recheck K on . 3. Increase Cymbalta to 60 mg daily 4. When Tawny comes in for shared care will have the manager performance improvement consult with Jad and Tawny about diet.......he has potato chips, soda, [employer] donuts and other snacks in his room.......this has been an ongoing problem per Staci and Jad adjusts his insulin at home without consulting his physician. 5. Check a Hemoccult stool. The drop in hemoglobin is concerning......will recheck an HH in 2 days. 6. 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 7. Supplement magnesium and keep the magnesium at 2 or greater Charges/Coding Visit Charges Inpatient E&M: 11675 Subs Hosp L2
[2023-02-07 11:50] LABS: Bedside Glucose 197 mg/dL (74-106)
[2023-02-07] MEDS: Potassium Chloride Oral Tablet 20 MEQ 40 MEQ PO (14:57)
[2023-02-07] MEDS: 0.9% Saline Lock 10 ML Syringe IV (16:06)
[2023-02-07] MEDS: Magnesium Sulfate 4gm/100mL 4 GM/100 ML IV.SOLN. IV (16:07)
[2023-02-07 17:15] LABS: Bedside Glucose 189 mg/dL (74-106)
[2023-02-07] MEDS: Tamsulosin HCl 0.4 MG Capsule PO (17:39)
[2023-02-07 19:30] VITALS: BP 105/68; PULSE 100; RESP 14; TEMP 36.2; O2SAT 98
[2023-02-07 21:56] LABS: Bedside Glucose 212 mg/dL (74-106)
[2023-02-07 21:57] VITALS: PULSE 103
[2023-02-07] MEDS: Insulin Glargine-YFGN 100 UNIT/ML Pen 30 UNIT SC (21:58)
[2023-02-07] MEDS: MELATONIN 3 MG TABLET 6 MG PO (21:59)
[2023-02-07 22:00] VITALS: PULSE 103; RESP 15; O2SAT 98
[2023-02-08 03:31] LABS: Bedside Glucose 239 mg/dL (74-106)
[2023-02-08 06:00] VITALS: BMI 25.9
[2023-02-08 07:01] LABS: Bedside Glucose 176 mg/dL (74-106)
[2023-02-08 07:38] VITALS: BP 116/68; PULSE 97; RESP 18; TEMP 36.2; O2SAT 98
[2023-02-08] MEDS: Carvedilol 6.25 MG Tablet PO ×2 (08:16→17:31)
[2023-02-08] MEDS: Potassium Chloride Oral Tablet 10 MEQ PO (08:16)
[2023-02-08] MEDS: Calcium Carb/Vitamin D 1 TABLET Tablet PO (08:16)
[2023-02-08] MEDS: Acyclovir 200 MG Capsule 400 MG PO ×2 (08:16→22:00)
[2023-02-08] MEDS: Losartan Potassium 100 MG Tablet PO (08:16)
[2023-02-08] MEDS: levETIRAcetam 750 MG Tablet PO ×2 (08:16→22:00)
[2023-02-08] MEDS: Insulin Lispro 100 UNIT/ML INSULN.PEN SC ×3 (08:17→17:31)
[2023-02-08] MEDS: DULoxetine Hcl 60 MG Capsule PO (08:17)
[2023-02-08] MEDS: Pantoprazole Sodium 40 MG Tablet PO (08:17)
[2023-02-08] MEDS: Loratadine 10 MG Tablet PO (08:17)
[2023-02-08] MEDS: Insulin Glargine-YFGN 100 UNIT/ML Pen 60 UNIT SC (08:17)
[2023-02-08 08:19] VITALS: BP 116/68; PULSE 97
[2023-02-08] MEDS: hydrALAZINE 25 MG Tablet 50 MG PO ×2 (08:19→22:00)
[2023-02-08] MEDS: Insulin Lispro 100 UNIT/ML INSULN.PEN 20 UNIT SC ×3 (08:20→17:31)
[2023-02-08] MEDS: Magnesium Chloride 64 MG Delay Rel.Tablet 128 MG PO (08:20)
[2023-02-08] MEDS: Lidocaine 5% Patch 1 PATCH TOPICAL (08:25)
[2023-02-08 11:40] LABS: Bedside Glucose 228 mg/dL (74-106)
--- NOTE | 2023-02-08 15:39 | CASEMGMT ---
Social Work SW received call from with several questions about discharge, insurance, ongoing therapy after DC. initially asked if this worker received a call from [facility], a HHC agency, inquiring about services for pt. SW educated this worker assists in coordinating any needs at DC, including skilled HHC, if that is the recommendation, thus does not need to contact any agencies. Educated ?that [facility] specifically does not provide ST or SN, thus this agency would not be able to provide the current level of care pt needs.? Educated SW will provide a list of options and?secure an agency that does, if needed. stated she spoke to ?someone? and was told the insurance only covers 40 total therapy visits in a calendar year. expressed concern with pt getting 3 visits daily while in the [place], and that is counting toward those 40 total visits. expressed wanting pt to have therapy at home after this stay. SW educated to the visit numbers being for HHC or OP therapy visits, that Inpatient Rehab is billed differently and does not have max amount of therapy visits.? Reinforced and re-educated to the insurance benefit in RU and continued stay reviews. continued to refute education provided and expressed concern with therapy visits while patient is a patient in RU.? SW again reiterated explanation of outpatient vs RU benefits to assist in understanding. SW acknowledged??s concerns as appropriate in the context of wanting to ensure benefits are used appropriately.? Offered assurance that at the time of DC, the team?s recommendations will take the yearly 40 visit cap into consideration. still seemed unsure with the information, given but this worker reassured this worker has heard concerns and would assist with coordinating any DC needs at the time of DC. TERRY explained insurance has approved RU stay with NRD 02/13, and IDT is recommending ongoing therapy. ?Offered assurance to that when a DC date is issued from insurance, this worker will communicate it with pt and to assist with DC planning.? ?s insight appearing limited into rehab unit level of care, as then went on to state ?well what is he even getting there because every time I come in, he is just lying in bed or the chair, and I don?t see him walking a lot. Can?t he get up and walk around? He sits for that cognitive session and only gets 45 minutes of physical therapy, then he is just sitting the other 23 hours of the day. He just wants to come home. He hasn?t been home in 7 weeks?. ?SW educated that patient is getting 3 hours of total therapy a day between PT/OT/ST, which is broken down to different sessions.? Confirmed that ST is done in the chair or bed, then educated PT/OT are typically conducted outside of the room. SW educated to the visiting hours being 4-8 pm on weekdays, which is designed to be after all therapy sessions are completed while also allowing for time in between sessions to rest and recover for visits with family in the evening time. Educated that rest is an important component of healing. SW offered for to encourage pt to remain in RU for the intensive therapy that will help pt improve. Empathized with pt being away from home so long, but this is the place for pt to receive optimal outcomes at this time. appreciative of explanation stating she was not aware of any of that. asked if she could take the pt outside or walk him around because he hasn?t been outside in 7 weeks, and misses his dogs. SW offered option for staff and to take pt outside for fresh air and sunshine, agreeing that improves mood. Reinforced that nursing and therapy to determine if/when can assist pt outside alone or to the bathroom, however, currently pt is still weak and needing staff assistance. Offered for to bring in pt?s dogs for visits. expressed surprise that pt can go outside and have pt?s two dogs visit, and intends to arrange those visits, but happy with the information provided. then explained pt told her the staff gives him ?two points every time he gets out of his chair or tries to go to the bathroom?. TERRY then clarified ?s statement, and educated there is not a ?point system? or discipline system for patients. reiterated statement several times, and added then pt was given a chair alarm. SW reinforced and assured there is not a point system.? Educated the alarm is used for safety to alert staff when pt attempts to get out of his chair if he didn?t call for assistance. responded, ?well he wouldn?t just make that up, He must have dreamt that?. SW explained pt?s cognition can be impacted by illness, and that while pt may appear to have his cognition intact, it may be of benefit for to check with staff regarding what pt is reporting, as there may be some inaccuracies.? Even after education regarding cognitive changes, appearing to have difficulty hearing all information given as perseverated on pt not making up the point system, repeating the pt ?must have dreamt that?.? SW continued to offer reinforcement that pt?s body and mind is in a different condition than prior to hospitalization.??Encouraged if feeling uncertain that it is okay to confirm pt?s statements with staff to ensure accuracy.? expressed appreciation for conversation and information from this worker. This worker unsure if absorbed all explanations and understood information given. Plan: In order to assist with ongoing understanding, will continue to offer education, support and reinforcement of information to and pt as needed throughout stay. SW to continue to follow and assist as needed. Olga Sebastian, [facility]
[2023-02-08 17:05] LABS: Bedside Glucose 172 mg/dL (74-106)
[2023-02-08] MEDS: Tamsulosin HCl 0.4 MG Capsule PO (17:31)
[2023-02-08 20:00] VITALS: BP 102/64; PULSE 107; RESP 18; TEMP 36.4; O2SAT 98
[2023-02-08] MEDS: Menthol/Lanolin/Calamine/Znox 113 GM Tube 1 APPLIC TOPICAL (21:59)
[2023-02-08 22:00] VITALS: PULSE 107
[2023-02-08] MEDS: MELATONIN 3 MG TABLET 6 MG PO (22:00)
[2023-02-08] MEDS: Insulin Glargine-YFGN 100 UNIT/ML Pen 30 UNIT SC (22:04)
[2023-02-08 23:15] LABS: Bedside Glucose 168 mg/dL (74-106)
[2023-02-09 03:52] LABS: Bedside Glucose 157 mg/dL (74-106)
[2023-02-09 05:35] LABS: Hematocrit 23.8 % (40-54); Hemoglobin 7.5 g/dL (13.0-16.5)
[2023-02-09 06:00] LABS: Potassium 4.2 mmol/L (3.5-5.1)
[2023-02-09 07:15] LABS: Bedside Glucose 182 mg/dL (74-106)
[2023-02-09] MEDS: Insulin Glargine-YFGN 100 UNIT/ML Pen 60 UNIT SC (08:20)
[2023-02-09] MEDS: Insulin Lispro 100 UNIT/ML INSULN.PEN SC ×3 (08:23→17:37)
[2023-02-09] MEDS: Carvedilol 6.25 MG Tablet PO ×2 (08:24→17:21)
[2023-02-09 08:25] VITALS: BP 108/66; PULSE 94
[2023-02-09] MEDS: DULoxetine Hcl 60 MG Capsule PO (08:25)
[2023-02-09] MEDS: Acyclovir 200 MG Capsule 400 MG PO ×2 (08:25→21:17)
[2023-02-09] MEDS: Losartan Potassium 100 MG Tablet PO (08:25)
[2023-02-09] MEDS: Loratadine 10 MG Tablet PO (08:25)
[2023-02-09] MEDS: Potassium Chloride Oral Tablet 10 MEQ PO (08:25)
[2023-02-09] MEDS: Pantoprazole Sodium 40 MG Tablet PO ×2 (08:25→21:17)
[2023-02-09] MEDS: hydrALAZINE 25 MG Tablet 50 MG PO ×2 (08:25→21:17)
[2023-02-09] MEDS: Magnesium Chloride 64 MG Delay Rel.Tablet 128 MG PO (08:26)
[2023-02-09] MEDS: levETIRAcetam 750 MG Tablet PO ×2 (08:26→21:17)
[2023-02-09] MEDS: Calcium Carb/Vitamin D 1 TABLET Tablet PO (08:26)
[2023-02-09] MEDS: Insulin Lispro 100 UNIT/ML INSULN.PEN 20 UNIT SC ×3 (08:26→17:36)
[2023-02-09] MEDS: Menthol/Lanolin/Calamine/Znox 113 GM Tube 1 APPLIC TOPICAL ×2 (08:27→21:17)
[2023-02-09] MEDS: Lidocaine 5% Patch 1 PATCH TOPICAL (08:33)
[2023-02-09 08:40] VITALS: BP 108/66; PULSE 94; RESP 15; TEMP 36.2; O2SAT 98
--- NOTE | 2023-02-09 10:39 | PN_ITS ---
Subjective Subjective Afebrile VSS-resting heart rate is on the high side and has ranged from 94-107 over the past few days. Maintaining appropriate oxygen saturation on RA Oral intake is good Weight is up 6.6 pounds in the past 2 days? Blood sugar record was reviewed. Blood sugars are coming under much better control. Discussed with nursing - no problems that need addressed Reviewed the PT/OT/ST notes Medication list reviewed. All lab from this morning was personally reviewed. Hemoglobin was 11 at admission and is now down to 7.5. Hemoccult stool ordered on 02/07/2023 has not been collected yet. Potassium is 4.2 following supplementation. Karlos is complaining of feeling fatigued but denies lightheadedness. He also d enies nausea/vomiting/abdominal pain/abdominal cramping/diarrhea/black tarry stool. Appetite is good. Denies shortness of breath, chest pain, palpitations. Bactrim has been on hold since 02/01/2023. Objective Data Objective Data Vital Signs: Vital Signs Temp Pulse Resp BP Pulse Ox O2 Del Method 97.2 F L 94 15 108/66 98 Room Air 02/09/23 08:40 02/09/23 08:40 02/09/23 08:40 02/09/23 08:40 02/09/23 08:40 02/09/23 08:40 Oxygen Delivery Method Room Air Weight: 191 lb 9.307 oz Body Mass Index (BMI) 25.9 Intake & Output: Intake and Output for Last 24 Hours 02/07/23 02/08/23 02/09/23 23:59 23:59 23:59 Intake Total 2630 / 2750 2138 / 2138 440 / 440 Output Total 1450 / 1825 1775 / 1775 1050 / 1050 Balance 1180 / 925 363 / 363 -610 / -610 Lab / Micro Data Result Diagrams: 02/09/23 05:28 02/09/23 05:28 Labs: Laboratory Results - last 24 hr 02/08/23 11:19: POC Glucose 228 H 02/08/23 16:37: POC Glucose 172 H 02/08/23 22:03: POC Glucose 168 H 02/09/23 02:00: POC Glucose 157 H 02/09/23 05:28: Hgb 7.5 L, Hct 23.8 L 02/09/23 05:28: Potassium 4.2 02/09/23 06:52: POC Glucose 182 H Physical Exam Const alert and no apparent distress General Appearance: cooperative Resp clear to auscultation bilaterally Cardio regular rate, regular rhythm and no gallops GI GI Narrative: The abd is soft and the BS's are normal and not hyperactive. No guarding with palpation and no epigastric pain. Had a large BM today and per nursing the stool is steele. On rectal there is no stool in the rectal vault. Good sphincter tone. Denies hx of PUD. No masses. Inspection: Negative for abdominal distention Extremity no calf tenderness General Extremity: Negative for edema Skin General Skin Exam: no breakdown Rashes: no rashes Assessment & Plan Assessment/Plan (1) Debility: (2) Subarachnoid hemorrhage: (3) Cognitive change: (4) Multiple myeloma: (5) Type 2 diabetes mellitus: (6) Generalized weakness: (7) Macrocytic anemia: (8) Hypomagnesemia: (9) GIB (gastrointestinal bleeding): PLAN: Plan 1. Continue therapy 2. Increase glargine to 70 units in the a.m. and 36 units at at bedtime and give 10 units of glargine now. Continue 20 units of lispro 3 times daily AC and sliding scale. 3. Increase pantoprazole to 40 mg p.o. twice daily 4. Check bilirubin and LDH 5. Continue to hold Bactrim 6. Consult Dr. Nguyễn for GI evaluation......if no source blood loss will need to be seen by heme/onc. Suspect GI bleed since he is having excellent fluid intake and the BUN/creat ratio is very elevated. 7. Type and cross for PRBC's - 2 units 8. Q6H HH with CBC in the AM and a BMP 9. PT/PTT today Charges/Coding Visit Charges Inpatient E&M: 97721 Subs Hosp L3
[2023-02-09] MEDS: Insulin Glargine-YFGN 100 UNIT/ML Pen 10 UNIT SC (11:27)
[2023-02-09 11:30] LABS: Bedside Glucose 220 mg/dL (74-106)
[2023-02-09 12:01] LABS: Bilirubin, Direct 0.08 mg/dL (0.00-0.30); LDH 232 U/L (87-241)
[2023-02-09 13:00] VITALS: O2SAT 97
[2023-02-09 13:02] LABS: Hematocrit 26.4 % (40-54); Hemoglobin 8.7 g/dL (13.0-16.5)
[2023-02-09 13:11] LABS: Partial Thromboplast Time 25.8 Seconds (24.1-36.2); Prothrombin Time (Protime)PT. 12.7 SECONDS (11.7-14.9)
[2023-02-09 17:09] LABS: Bedside Glucose 226 mg/dL (74-106)
[2023-02-09] MEDS: Tamsulosin HCl 0.4 MG Capsule PO (17:21)
[2023-02-09 18:23] LABS: Hematocrit 24.8 % (40-54); Hemoglobin 8.3 g/dL (13.0-16.5)
[2023-02-09 21:17] VITALS: BP 101/61; PULSE 107
[2023-02-09] MEDS: MELATONIN 3 MG TABLET 6 MG PO (21:17)
[2023-02-09] MEDS: Insulin Glargine-YFGN 100 UNIT/ML Pen 36 UNIT SC (21:27)
[2023-02-09 21:48] LABS: Bedside Glucose 179 mg/dL (74-106)
[2023-02-09 22:00] VITALS: BP 101/61; PULSE 107; RESP 14; TEMP 36.4; O2SAT 98
[2023-02-10 02:26] LABS: Bedside Glucose 172 mg/dL (74-106)
[2023-02-10 06:00] VITALS: BMI 26.3
[2023-02-10 06:27] LABS: Hematocrit 25.2 % (40-54); Mean Corp Hgb Conc 31.7 g/dL (32-36); Mean Corpuscular Hgb 35.6 pg (27.0-32.0); Mean Platelet Vol. 10.2 fl (6.2-12.0); POSITIVE COUNT YES; POSITIVE MORPHOLOGY YES; Platelet Count 242 K/mm3 (150-450); RBC Distribution Width CV 22.5 % (11.6-14.6); RBC Distribution Width SD 90.9 fl (35.1-43.9); Red Blood Count 2.25 M/mm3 (4.6-6.2); White Blood Count 7.1 K/mm3 (4.4-11.0)
[2023-02-10 06:39] LABS: Differential Indicated MANUAL DIFF
[2023-02-10 06:43] LABS: ALB/GLOB Ratio 0.9 RATIO (0.9-2.4); AST(SGOT) 17 U/L (15-37); Alanine Aminotransfer ALT/SGPT 40 U/L (16-61); Albumin, Serum 2.5 g/dL (3.2-5.0); Alkaline Phosphatase 73 U/L (45-117); Anion Gap 5 (5-15); BUN 26 mg/dL (7-18); Calcium,Total 8.2 mg/dL (8.5-10.1); Chloride 111 mmol/L (98-107); Creatinine, Serum 0.41 mg/dL (0.70-1.30); EST Glomerular Filtration Rate 221 mL/min (>60); Est Glom Filt Rate - Afr Amer 268 mL/min (>60); Estimated Creatinine Clearance 199.78 ml/min; Globulin 2.8 g/dL (2.2-4.2); Glucose 112 mg/dL (74-106); Magnesium 1.7 mg/dL (1.6-2.6); Potassium 3.6 mmol/L (3.5-5.1); Protein, Total 5.3 g/dL (6.4-8.2); Sodium Level 143 mmol/L (136-145)
[2023-02-10 07:11] LABS: Total Cells Counted 100 (MANUAL DIFF)
[2023-02-10 07:12] LABS: Anisocytosis 2+; Hypochromasia 1+; Lymphocyte 25 % (19-41); Metamyelocyte 2 % (0-1); Monocyte 9 % (0-10); Myelocyte 5 % (0-0); Neutrophil-Band 4 % (0-5); Neutrophil-Segmented 55 % (47-70); Platelet Estimate ADEQUATE (ADEQ)
[2023-02-10 07:13] LABS: Absolute Lymphocyte Count 1.76 X10^3/uL (0.83-4.51); Absolute Neutrophil Count 4.2 X10^3/uL (2.0-7.7); Lymphocyte # 1.76 X10^3/ul (0.83-4.51); Macrocytosis 1+; Microcytosis 1+; Neutrophil # 4.16 X10^3/uL (2.7-7.7)
[2023-02-10 07:45] LABS: Bedside Glucose 95 mg/dL (74-106)
[2023-02-10] MEDS: Potassium Chloride Oral Tablet 10 MEQ PO (08:10)
[2023-02-10] MEDS: Calcium Carb/Vitamin D 1 TABLET Tablet PO (08:10)
[2023-02-10] MEDS: Carvedilol 6.25 MG Tablet PO ×2 (08:10→16:32)
[2023-02-10] MEDS: Magnesium Chloride 64 MG Delay Rel.Tablet 128 MG PO (08:10)
[2023-02-10] MEDS: Insulin Lispro 100 UNIT/ML INSULN.PEN 20 UNIT SC ×3 (08:12→17:13)
[2023-02-10 08:18] VITALS: BP 110/71; PULSE 94; RESP 17; TEMP 36.3; O2SAT 99
[2023-02-10] MEDS: Insulin Glargine-YFGN 100 UNIT/ML Pen 70 UNIT SC (09:50)
[2023-02-10] MEDS: Lidocaine 5% Patch 1 PATCH TOPICAL (09:51)
[2023-02-10] MEDS: levETIRAcetam 750 MG Tablet PO ×2 (09:53→22:13)
[2023-02-10] MEDS: Losartan Potassium 50 MG Tablet PO (09:53)
[2023-02-10] MEDS: DULoxetine Hcl 60 MG Capsule PO (09:53)
[2023-02-10] MEDS: Loratadine 10 MG Tablet PO (09:53)
[2023-02-10] MEDS: Acyclovir 200 MG Capsule 400 MG PO ×2 (09:53→22:13)
[2023-02-10 09:54] VITALS: PULSE 90
[2023-02-10] MEDS: Pantoprazole Sodium 40 MG Tablet PO ×2 (09:54→22:13)
[2023-02-10] MEDS: hydrALAZINE 25 MG Tablet 50 MG PO ×2 (09:54→22:13)
[2023-02-10] MEDS: 0.9% Saline Lock 10 ML Syringe IV ×2 (09:57→22:08)
[2023-02-10] MEDS: Menthol/Lanolin/Calamine/Znox 113 GM Tube 1 APPLIC TOPICAL ×2 (09:59→22:06)
--- NOTE | 2023-02-10 10:27 | PCM.PROGNOTE ---
Subjective Subjective Afebrile VSS Maintaining appropriate oxygen saturation on RA Oral intake is good The blood sugar record was reviewed. Fasting blood sugar today is 95. The at bedtime blood sugar was 179 and the 2 AM was 172. Discussed with nursing - no problems that need addressed Reviewed the PT/OT/ST notes Medication list reviewed. All lab from the past 24 hours has been reviewed. Hemoglobin was low at 7.5 yesterday a.m. 6 hours later it was 8.7? then 8.3 and now it is 8.0. Stool was Hemoccult positive. White blood cell count today is normal, MCV is up to 112. Platelets are normal at 242,000. There are 5% myelocytes and 2% metamyelocytes on the white blood cell differential. Sodium is 143 and the potassium is 3.6. The BUN is down to 26 from 38 and his creatinine is 0.41 today down from 0.63 on the . Magnesium is up to 1.7 with supplementation. Calcium corrected for hypoalbuminemia is within normal limits. LFTs are unremarkable. He is feeling tired but, he denies chest pain, shortness of breath, cough, cephalgia, lightheadedness, nausea/vomiting/abdominal pain, dysuria and calf tenderness. Objective Data Objective Data Vital Signs: Vital Signs Temp Pulse Resp BP Pulse Ox O2 Del Method 97.3 F L 90 17 110/71 99 Room Air 02/10/23 08:18 02/10/23 09:54 02/10/23 08:18 02/10/23 08:18 02/10/23 08:18 02/10/23 08:18 Oxygen Delivery Method Room Air Weight: 191 lb 9.307 oz Body Mass Index (BMI) 25.9 Intake & Output: Intake and Output for Last 24 Hours 02/08/23 02/09/23 02/10/23 23:59 23:59 23:59 Intake Total 2138 / 2138 1400 / 1400 700 / 700 Output Total 1775 / 1775 1800 / 1800 300 / 300 Balance 363 / 363 -400 / -400 400 / 400 Lab / Micro Data Result Diagrams: 02/17/23 05:32 02/17/23 05:32 Labs: Laboratory Results - last 24 hr 02/09/23 05:28: Total Bilirubin 0.30, Direct Bilirubin 0.08, Indirect Bilirubin 0.20, Lactate Dehydrogenase 232 02/09/23 11:09: POC Glucose 220 H 02/09/23 12:45: PT 12.7, INR 1.0, APTT 25.8 02/09/23 12:45: Blood Type A POSITIVE, Antibody Screen NEGATIVE, Crossmatch See Detail 02/09/23 12:45: Hgb 8.7 L, Hct 26.4 L 02/09/23 16:44: POC Glucose 226 H 02/09/23 18:16: Hgb 8.3 L, Hct 24.8 L 02/09/23 21:20: POC Glucose 179 H 02/10/23 02:04: POC Glucose 172 H 02/10/23 05:12: WBC 7.1, RBC 2.25 L, Hgb 8.0 L, Hct 25.2 L, MCV 112.0 H D, MCH 35.6 H, MCHC 31.7 L D, RDW Std Deviation 90.9 H, RDW Coeff of Saad 22.5 H, Plt Count 242, MPV 10.2, Neut % (Auto) Not Reportable, Absolute Neuts (auto) 4.2, Absolute Lymphs (auto) 1.76, Total Counted 100, Neutrophils % (Manual) 55, Band Neutrophils % 4, Lymphocytes % (Manual) 25, Monocytes % (Manual) 9, Metamyelocytes % 2 H, Myelocytes % 5 H, Diff Path Review May , Platelet Estimate ADEQUATE, Hypochromasia 1+, Anisocytosis 2+, Microcytosis 1+, Macrocytosis 1+ 02/10/23 05:12: Sodium 143, Potassium 3.6, Chloride 111 H, Carbon Dioxide 27.0, Anion Gap 5, BUN 26 H, Creatinine 0.41 L, Estim Creat Clear Calc 199.78, Est GFR (MDRD) Af Amer 268, Est GFR (MDRD) Non-Af 221, BUN/Creatinine Ratio 63.0 H, Glucose 112 H, Calcium 8.2 L, Magnesium 1.7, Total Bilirubin 0.20, AST 17, ALT 40, Alkaline Phosphatase 73, Total Protein 5.3 L, Albumin 2.5 L, Globulin 2.8, Albumin/Globulin Ratio 0.9 02/10/23 06:46: POC Glucose 95 Micro: Microbiology 02/10/23 06:50 Stool Stool Occult Blood (ROSAURA) - Final Occult Blood Positive Physical Exam Const alert and no apparent distress General Appearance: cooperative HEENT moist oral mucous membranes Resp normal respiratory effort, no use of accessory muscles and clear to auscultation bilaterally Effort and Inspection: Negative for tachypneic or labored Cardio regular rate, regular rhythm and no gallops GI normal to inspection, nondistended, normoactive bowel sounds, non-tender and non-distended GI Narrative: no guarding with palpation Extremity Negative for no calf tenderness General Extremity: Negative for edema Skin General Skin Exam: no breakdown Rashes: no rashes Neuro CN's II-XII intact bilaterally Neuro Narrative: He has generalized weakness with no focal deficits. No sensory loss. No vision loss. No ataxia and can do penxdy-eh-wyca and msec-ro-lxky easily. Speech is fluent with no significant dysarthria. Still loses his balance occasionally. Needs more work with speech therapy/cognition. Psych Psych Narrative: Flat affect, depressed. Sick of being in the hospital and wants to go home. Assessment & Plan Assessment/Plan (1) Debility: (2) Subarachnoid hemorrhage: PLAN: When he had severe thrombocytopenia. (3) Cognitive change: (4) Multiple myeloma: (5) Type 2 diabetes mellitus: PLAN: Historically not well controlled due to non-compliance with diet and manipulation of his medication without consulting his doctor. (6) Generalized weakness: (7) Macrocytic anemia: (8) Hypomagnesemia: (9) Gastroenteritis: (10) Dehydration: (11) Hypocalcemia: (12) Hypophosphatemia: (13) Non-compliance: (14) Heme + stool: (15) Depression: (16) Hyperlipidemia: (17) Hypertension: (18) Coronary artery disease: PLAN: Plan 1. Continue therapy 2. Not yet safe to go home, milayd if his is the sole caregiver. Tawny has memory impairment and asks the same questions over and over. 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 Neither one of them is capable of medication management at this time. 3. Will discuss with dtr Staci if family could provide supervision for both Tawny and Jad. Charges/Coding Visit Charges Inpatient E&M: 34244 Subs Hosp L2
[2023-02-10 11:30] LABS: Bedside Glucose 121 mg/dL (74-106)
[2023-02-10] MEDS: Tamsulosin HCl 0.4 MG Capsule PO (16:32)
[2023-02-10 17:01] LABS: Bedside Glucose 97 mg/dL (74-106)
[2023-02-10 19:29] VITALS: BP 111/66; PULSE 73; RESP 16; TEMP 37.1; O2SAT 98
[2023-02-10] MEDS: Insulin Glargine-YFGN 100 UNIT/ML Pen 36 UNIT SC (22:12)
[2023-02-10 22:13] VITALS: BP 111/66; PULSE 88
[2023-02-10] MEDS: MELATONIN 3 MG TABLET 6 MG PO (22:13)
[2023-02-10 22:53] LABS: Bedside Glucose 214 mg/dL (74-106)
[2023-02-11 07:08] LABS: Bedside Glucose 164 mg/dL (74-106)
[2023-02-11 08:08] VITALS: BP 127/78; PULSE 96; RESP 17; TEMP 36; O2SAT 100
[2023-02-11] MEDS: Insulin Lispro 100 UNIT/ML INSULN.PEN SC ×2 (08:12→17:42)
[2023-02-11] MEDS: Insulin Lispro 100 UNIT/ML INSULN.PEN 20 UNIT SC ×3 (08:13→17:41)
[2023-02-11 08:14] VITALS: BP 127/78; PULSE 96
[2023-02-11] MEDS: Potassium Chloride Oral Tablet 10 MEQ PO (08:14)
[2023-02-11] MEDS: hydrALAZINE 25 MG Tablet 50 MG PO ×2 (08:14→22:11)
[2023-02-11] MEDS: Calcium Carb/Vitamin D 1 TABLET Tablet PO (08:14)
[2023-02-11] MEDS: Losartan Potassium 50 MG Tablet PO (08:14)
[2023-02-11] MEDS: Magnesium Chloride 64 MG Delay Rel.Tablet 128 MG PO (08:14)
[2023-02-11] MEDS: levETIRAcetam 750 MG Tablet PO ×2 (08:15→22:11)
[2023-02-11] MEDS: Pantoprazole Sodium 40 MG Tablet PO ×2 (08:15→22:11)
[2023-02-11] MEDS: Menthol/Lanolin/Calamine/Znox 113 GM Tube 1 APPLIC TOPICAL ×2 (08:15→20:35)
[2023-02-11] MEDS: Carvedilol 6.25 MG Tablet PO ×2 (08:15→17:41)
[2023-02-11] MEDS: DULoxetine Hcl 60 MG Capsule PO (08:15)
[2023-02-11] MEDS: Acyclovir 200 MG Capsule 400 MG PO ×2 (08:15→22:11)
[2023-02-11] MEDS: Insulin Glargine-YFGN 100 UNIT/ML Pen 70 UNIT SC (08:16)
[2023-02-11] MEDS: Loratadine 10 MG Tablet PO (08:18)
[2023-02-11] MEDS: Lidocaine 5% Patch 1 PATCH TOPICAL (08:22)
[2023-02-11 12:01] LABS: Bedside Glucose 144 mg/dL (74-106)
[2023-02-11 16:50] LABS: Bedside Glucose 170 mg/dL (74-106)
[2023-02-11] MEDS: Tamsulosin HCl 0.4 MG Capsule PO (17:41)
[2023-02-11 19:50] VITALS: BP 117/71; PULSE 98; RESP 16; TEMP 36.6; O2SAT 97
[2023-02-11 22:11] VITALS: BP 117/71; PULSE 98
[2023-02-11] MEDS: MELATONIN 3 MG TABLET 6 MG PO (22:11)
[2023-02-11] MEDS: Insulin Glargine-YFGN 100 UNIT/ML Pen 36 UNIT SC (22:12)
[2023-02-11 22:20] LABS: Bedside Glucose 140 mg/dL (74-106)
[2023-02-12] MEDS: 0.9% Saline Lock 10 ML Syringe IV ×3 (06:24→22:13)
[2023-02-12 06:45] LABS: Bedside Glucose 146 mg/dL (74-106)
[2023-02-12 07:21] VITALS: BP 127/75; PULSE 95; RESP 16; TEMP 36.4; O2SAT 97
[2023-02-12 07:44] VITALS: BP 127/75; PULSE 95
[2023-02-12] MEDS: hydrALAZINE 25 MG Tablet 50 MG PO ×2 (07:44→22:14)
[2023-02-12] MEDS: DULoxetine Hcl 60 MG Capsule PO (07:44)
[2023-02-12] MEDS: Carvedilol 6.25 MG Tablet PO ×2 (07:44→17:20)
[2023-02-12] MEDS: Pantoprazole Sodium 40 MG Tablet PO ×2 (07:44→22:14)
[2023-02-12] MEDS: Acyclovir 200 MG Capsule 400 MG PO ×2 (07:45→22:14)
[2023-02-12] MEDS: levETIRAcetam 750 MG Tablet PO ×2 (07:45→22:14)
[2023-02-12] MEDS: Magnesium Chloride 64 MG Delay Rel.Tablet 128 MG PO (07:45)
[2023-02-12] MEDS: Calcium Carb/Vitamin D 1 TABLET Tablet PO (07:45)
[2023-02-12] MEDS: Potassium Chloride Oral Tablet 10 MEQ PO (07:45)
[2023-02-12] MEDS: Losartan Potassium 50 MG Tablet PO (07:45)
[2023-02-12] MEDS: Loratadine 10 MG Tablet PO (07:45)
[2023-02-12] MEDS: Insulin Lispro 100 UNIT/ML INSULN.PEN 20 UNIT SC ×3 (07:46→17:20)
[2023-02-12] MEDS: Menthol/Lanolin/Calamine/Znox 113 GM Tube 1 APPLIC TOPICAL ×2 (07:46→22:16)
[2023-02-12] MEDS: Lidocaine 5% Patch 1 PATCH TOPICAL (07:46)
[2023-02-12] MEDS: Insulin Glargine-YFGN 100 UNIT/ML Pen 70 UNIT SC (07:47)
[2023-02-12 11:51] LABS: Bedside Glucose 159 mg/dL (74-106)
[2023-02-12] MEDS: Insulin Lispro 100 UNIT/ML INSULN.PEN SC ×2 (12:13→17:21)
[2023-02-12] MEDS: Tamsulosin HCl 0.4 MG Capsule PO (17:20)
[2023-02-12 17:21] LABS: Bedside Glucose 178 mg/dL (74-106)
[2023-02-12 19:36] VITALS: BP 117/79; PULSE 104; RESP 18; TEMP 36.4; O2SAT 98
[2023-02-12 22:00] VITALS: PULSE 102; RESP 16; O2SAT 97
[2023-02-12 22:14] VITALS: PULSE 102
[2023-02-12] MEDS: MELATONIN 3 MG TABLET 6 MG PO (22:14)
[2023-02-12] MEDS: Insulin Glargine-YFGN 100 UNIT/ML Pen 36 UNIT SC (22:16)
[2023-02-12 22:25] LABS: Bedside Glucose 163 mg/dL (74-106)
[2023-02-13 07:27] LABS: Bedside Glucose 112 mg/dL (74-106)
[2023-02-13] MEDS: Carvedilol 6.25 MG Tablet PO ×2 (08:14→17:41)
[2023-02-13] MEDS: DULoxetine Hcl 60 MG Capsule PO (08:14)
[2023-02-13] MEDS: Pantoprazole Sodium 40 MG Tablet PO ×2 (08:14→22:13)
[2023-02-13] MEDS: Magnesium Chloride 64 MG Delay Rel.Tablet 128 MG PO (08:14)
[2023-02-13] MEDS: Potassium Chloride Oral Tablet 10 MEQ PO (08:14)
[2023-02-13] MEDS: Acyclovir 200 MG Capsule 400 MG PO ×2 (08:14→22:07)
[2023-02-13 08:15] VITALS: BP 107/71; PULSE 94
[2023-02-13] MEDS: Calcium Carb/Vitamin D 1 TABLET Tablet PO (08:15)
[2023-02-13] MEDS: levETIRAcetam 750 MG Tablet PO ×2 (08:15→22:13)
[2023-02-13] MEDS: Loratadine 10 MG Tablet PO (08:15)
[2023-02-13] MEDS: Losartan Potassium 50 MG Tablet PO (08:15)
[2023-02-13] MEDS: hydrALAZINE 25 MG Tablet 50 MG PO ×2 (08:15→22:13)
[2023-02-13] MEDS: Insulin Lispro 100 UNIT/ML INSULN.PEN 20 UNIT SC ×2 (08:16→17:43)
[2023-02-13] MEDS: Insulin Glargine-YFGN 100 UNIT/ML Pen 70 UNIT SC (08:16)
[2023-02-13] MEDS: Menthol/Lanolin/Calamine/Znox 113 GM Tube 1 APPLIC TOPICAL ×2 (08:21→22:13)
[2023-02-13 10:00] VITALS: BP 107/71; PULSE 94; RESP 16; TEMP 36.7; O2SAT 95
[2023-02-13 11:00] VITALS: BMI 26.2
--- NOTE | 2023-02-13 11:41 | PCM.PROGNOTE ---
Subjective Subjective Afebrile VSS - The HR is consistently in the 90's and the low 100's. Blood pressure is well controlled and stable. Patient denies lightheadedness. Maintaining appropriate oxygen saturation on RA Oral intake is good The blood sugar record was reviewed. All blood sugars are under 200 now without any hypoglycemia. Blood sugars are difficult to control because he is noncompliant with diet and has multiple snacks in his room that his family brings in. His daughter tells me that he is noncompliant with diet at home as well. Discussed with nursing - no problems that need addressed Reviewed the PT/OT/ST notes Medication list reviewed. Karlos once again is complaining of a mild headache in the posterior occiput. He also complains that he feels tired all the time. He denies shortness of breath, cough, chest pain, palpitations, vertigo, lightheadedness, nausea/vomiting/abdominal pain, dysuria and calf pain. Objective Data Objective Data Vital Signs: Vital Signs Temp Pulse Resp BP Pulse Ox O2 Del Method 98.1 F 94 16 107/71 95 Room Air 02/13/23 10:00 02/13/23 10:00 02/13/23 10:00 02/13/23 10:00 02/13/23 10:00 02/13/23 10:00 Oxygen Delivery Method Room Air Weight: 193 lb 9.054 oz Body Mass Index (BMI) 26.2 Intake & Output: Intake and Output for Last 24 Hours 02/11/23 02/12/23 02/13/23 23:59 23:59 23:59 Intake Total 1290 / 1290 1000 / 1000 820 / 820 Output Total 750 / 750 1300 / 1300 200 / 200 Balance 540 / 540 -300 / -300 620 / 620 Lab / Micro Data Result Diagrams: 02/10/23 05:12 02/10/23 05:12 Labs: Laboratory Results - last 24 hr 02/09/23 12:45: Crossmatch See Detail 02/12/23 11:30: POC Glucose 159 H 02/12/23 17:03: POC Glucose 178 H 02/12/23 22:07: POC Glucose 163 H 02/13/23 06:25: POC Glucose 112 H Micro: Microbiology 02/10/23 06:50 Stool Stool Occult Blood (ROSAURA) - Final Occult Blood Positive Physical Exam Const alert and no apparent distress General Appearance: cooperative Resp clear to auscultation bilaterally Effort and Inspection: Negative for tachypneic or labored Cardio regular rate, regular rhythm and no gallops Cardio Narrative: No ectopy GI normal to inspection, nondistended, normoactive bowel sounds, soft to palpation and non-tender Extremity no calf tenderness General Extremity: Negative for edema Skin General Skin Exam: no breakdown Rashes: no rashes Psych cooperative Psych Narrative: Affect is flat Assessment & Plan Assessment/Plan (1) Debility: (2) Subarachnoid hemorrhage: (3) Cognitive change: (4) Multiple myeloma: (5) Type 2 diabetes mellitus: (6) Generalized weakness: (7) Macrocytic anemia: (8) Hypomagnesemia: (9) GIB (gastrointestinal bleeding): PLAN: Plan 1. Continue therapy 2. Continue the current insulin regimen 3. Need to discuss plans for DC tomorrow on TEAM rounds......home? or SNF. is not able to adequately assist him at home. Charges/Coding Visit Charges Inpatient E&M: 25278 Subs Hosp L2
[2023-02-13 12:29] LABS: Bedside Glucose 68 mg/dL (74-106)
--- NOTE | 2023-02-13 15:51 | NURSING ---
transferred pt to wheelchair and took him off the unit with out alerting staff. Pt and educated on the need to have staff present for transfers and the need of knowing where pt is for the pt's safety. pt and voiced understanding.
[2023-02-13 17:15] LABS: Bedside Glucose 159 mg/dL (74-106)
[2023-02-13] MEDS: Tamsulosin HCl 0.4 MG Capsule PO (17:41)
[2023-02-13] MEDS: Insulin Lispro 100 UNIT/ML INSULN.PEN SC (17:42)
[2023-02-13 19:35] VITALS: BP 109/55; PULSE 103; RESP 18; TEMP 36.1; O2SAT 99
[2023-02-13 21:43] LABS: Bedside Glucose 152 mg/dL (74-106)
[2023-02-13 22:00] VITALS: PULSE 104; RESP 15; O2SAT 96
[2023-02-13] MEDS: MELATONIN 3 MG TABLET 6 MG PO (22:06)
[2023-02-13 22:13] VITALS: PULSE 104
[2023-02-13] MEDS: Insulin Glargine-YFGN 100 UNIT/ML Pen 36 UNIT SC (22:14)
[2023-02-14 06:55] LABS: Bedside Glucose 105 mg/dL (74-106)
[2023-02-14 07:28] VITALS: BP 111/71; PULSE 97; RESP 16; TEMP 36.9; O2SAT 96
[2023-02-14 07:57] VITALS: BP 111/71; PULSE 97
[2023-02-14] MEDS: Pantoprazole Sodium 40 MG Tablet PO ×2 (07:57→21:54)
[2023-02-14] MEDS: Calcium Carb/Vitamin D 1 TABLET Tablet PO (07:57)
[2023-02-14] MEDS: Potassium Chloride Oral Tablet 10 MEQ PO (07:57)
[2023-02-14] MEDS: levETIRAcetam 750 MG Tablet PO ×2 (07:57→21:55)
[2023-02-14] MEDS: Magnesium Chloride 64 MG Delay Rel.Tablet 128 MG PO (07:57)
[2023-02-14] MEDS: hydrALAZINE 25 MG Tablet 50 MG PO ×2 (07:57→21:55)
[2023-02-14] MEDS: Acyclovir 200 MG Capsule 400 MG PO ×2 (07:57→21:54)
[2023-02-14] MEDS: Carvedilol 6.25 MG Tablet PO ×2 (07:58→17:22)
[2023-02-14] MEDS: Losartan Potassium 50 MG Tablet PO (07:58)
[2023-02-14] MEDS: DULoxetine Hcl 60 MG Capsule PO (07:58)
[2023-02-14] MEDS: Loratadine 10 MG Tablet PO (07:58)
[2023-02-14] MEDS: Loperamide 2 MG Capsule PO ×2 (08:02→19:23)
[2023-02-14] MEDS: Menthol/Lanolin/Calamine/Znox 113 GM Tube 1 APPLIC TOPICAL ×2 (08:11→21:55)
[2023-02-14] MEDS: Lidocaine 5% Patch 1 PATCH TOPICAL (08:13)
[2023-02-14 09:06] LABS: Pathologist Review Reviewed
--- NOTE | 2023-02-14 09:37 | CASEMGMT ---
Social Work IDT met with patient and dtr via conference call for Team meeting. Attempted 3-way call with ,but call went straight to 's voicemail. Discussed patient's progress in PT/OT/ST/SN. Educated to MMO CM insurance with [employer] 02/14 and continued stay is not guaranteed with each review. Reiterated copay is 20% daily. IDT recommending pt transfer to SNF for ongoing therapy and 24/7 care. and pt both exhibit cognitive impairment, not safe at home together. Pt varies from x1-2 assist and cannot provide that level of assist. SW offered SNF list with quality and resource data to dtr to review. Dtr does not disagree the need for pt to have 24/7 care but states the pt has made several comments about adamantly refusing a SNF stay. Dtr has coordinated with two brothers to take turns on assisting pt at home. SW offered to provide list of nonskilled [employer]. Dtr provided email and SW sent resources via email. Pt would also need bed rail and FWW, educated to pt purchasing; SW to coordinate via insurance for BSC and w/c. Pt does have adjustable bed at home. SW to coordinate skilled HHC PT/OT/ST/SN/GIBBS/SW. SW sent list of skilled providers via email to dtr as well. Dtr requested therapy training. Scheduled for 02/15 at 0930. SW to continue to follow. LILLY MaganaW
--- NOTE | 2023-02-14 10:33 | CT_ITS ---
EXAM: CT HEAD WITHOUT INTRAVENOUS CONTRAST CLINICAL INDICATION: GIBBS with recent SAH TECHNIQUE: Multiple axial images were obtained of the head without intravenous contrast. This CT exam was performed using one or more of the following dose reduction techniques: automated exposure control, adjustment of the mA and/or kV according to patient size, and/or use of iterative reconstruction technique. COMPARISON: No relevant prior studies available. FINDINGS: BRAIN AND EXTRA-AXIAL SPACES: Areas of diminished white matter density noted within both cerebral hemispheres suggestive of chronic microvascular change. Prominence of the cortical sulci and ventricles related to volume loss change. No hemorrhage or mass effect. No acute ischemia. BONES/JOINTS: Osteolytic lesion of the left parietal bone noted as well has additional small rounded areas of radiolucency within the calvarium bilaterally consistent with known history of multiple myeloma. SINUSES: Small polyp/mucus retention cyst noted within both maxillary sinuses and right sphenoid sinus. MASTOID AIR CELLS: Normal. Clear. ORBITS: Visualized globes, extraocular muscles, optic nerves and retrobulbar fat appear unremarkable. CT/Brain/Head without Contrast IMPRESSION: 1. No acute intracranial abnormality. 2. Senescent changes. 3. Lytic bone lesions consistent with the history of multiple myeloma. Electronically Signed: Jf Ware MD at 12:05 EDT ,
[2023-02-14] MEDS: Insulin Glargine-YFGN 100 UNIT/ML Pen 70 UNIT SC (10:34)
--- NOTE | 2023-02-14 10:49 | PCM.PROGNOTE ---
Subjective Subjective Jad was seen on team rounds today. His daughter Staci participated by phone. Afebrile VSS heart rate is still in the upper 90s and low 100s. Maintaining appropriate oxygen saturation on RA Oral intake is good Blood sugars are well controlled. He had a BS of 68 at lunch yesterday. Fasting today is 105. Weight is up approximately 8 pounds since admission. Discussed with nursing - no problems that need addressed Reviewed the PT/OT/ST notes Medication list reviewed. He is off Dexamethasone now. Staci thinks that her father is off. He complains of feeling tired all the time and wanting to sleep. He has a frequent GIBBS which is not changed since I have been seeing him. 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 He has no pain meds ordered. Staci is worried he may have more bleeding in his head. At the time of the SAH he had severe thrombocytopenia.......plt's in rehab have been normal. Brain denies lightheadedness, vertigo, chest pain, shortness of breath, palpitations, nausea/vomiting/abdominal pain, dysuria and calf pain.His only complaint is he feels tired all the time. He is anxious to go home and depressed that the therapists think he needs to go to an SNF. Staci has 2 brothers and they feel he would be better off going home They are going to make a schedule for his care and will come in for family training at home. SW will arrange for C when he is discharged if he goes home. Reviewed most recent lab again and he has 2+ anisocytosis and 1+ macrocytosis and microcytosis. Last HGB was 8. I rereviewed all the records sent to us from [facility]. He had a SAH and 2 subdurals while thrombocytopenic. He had serial CT scans and in early January the bleeding increased and he underwent MMA embolization. The DC summary noted that the CT scans improved after that. Objective Data Objective Data Vital Signs: Vital Signs Temp Pulse Resp BP Pulse Ox O2 Del Method 98.4 F 97 16 111/71 96 Room Air 02/14/23 07:28 02/14/23 07:57 02/14/23 07:28 02/14/23 07:57 02/14/23 07:28 02/14/23 07:28 Oxygen Delivery Method Room Air Weight: 193 lb 9.054 oz Body Mass Index (BMI) 26.2 Intake & Output: Intake and Output for Last 24 Hours 02/12/23 02/13/23 02/14/23 23:59 23:59 23:59 Intake Total 1000 / 1000 1540 / 1840 880 / 880 Output Total 1300 / 1300 1125 / 1325 400 / 400 Balance -300 / -300 415 / 515 480 / 480 Lab / Micro Data Result Diagrams: 02/14/23 11:05 02/10/23 05:12 Labs: Laboratory Results - last 24 hr 02/10/23 05:12: Diff Path Review Reviewed 02/13/23 11:52: POC Glucose 68 L 02/13/23 16:54: POC Glucose 159 H 02/13/23 21:24: POC Glucose 152 H 02/14/23 06:33: POC Glucose 105 Micro: Microbiology 02/10/23 06:50 Stool Stool Occult Blood (ROSAURA) - Final Occult Blood Positive Physical Exam Const alert and no apparent distress Constitutional Narrative: Sitting in the bed for rounds. General Appearance: cooperative HEENT HEENT Narrative: He has circumscribed areas on the scalp that are tender to the touch. I think these may be the lytic lesions from the MM. Eyes PERRL and EOMs intact bilaterally Neck No nuchal rigidity Resp clear to auscultation bilaterally Effort and Inspection: Negative for tachypneic or labored Cardio regular rate, regular rhythm and no gallops Cardio Narrative: No ectopy GI normal to inspection, nondistended, normoactive bowel sounds, soft to palpation and non-tender Extremity no calf tenderness General Extremity: Negative for edema Skin General Skin Exam: no breakdown Rashes: no rashes Psych cooperative Psych Narrative: Affect is flat Assessment & Plan Assessment/Plan (1) Debility: (2) Subarachnoid hemorrhage: (3) Cognitive change: (4) Multiple myeloma: (5) Type 2 diabetes mellitus: (6) Generalized weakness: (7) Macrocytic anemia: (8) Hypomagnesemia: (9) GIB (gastrointestinal bleeding): PLAN: Plan 1. Continue therapy 2. Noncontrast CT brain today 3. H&H, B12, folate and iron studies today. 4. Add Tylenol for headache and talk with him about possibly a NSAID if there is no bleeding on the CT. Charges/Coding Visit Charges Inpatient E&M: 44259 Subs Hosp L2
[2023-02-14 11:13] LABS: Hematocrit 29.2 % (40-54); Hemoglobin 9.3 g/dL (13.0-16.5)
[2023-02-14 11:27] LABS: Bedside Glucose 159 mg/dL (74-106)
[2023-02-14 11:41] LABS: Vitamin B12 253 pg/mL (211-911)
[2023-02-14 11:51] LABS: Ferritin 255 ng/mL (26-388); Iron 64 ug/dL (65-175); Iron Binding Capacity,Total 295 ug/dL (250-450); PERCENT IRON SATURATION 21.7 % (15.0-55.0)
[2023-02-14] MEDS: Insulin Lispro 100 UNIT/ML INSULN.PEN 20 UNIT SC (12:54)
[2023-02-14] MEDS: Insulin Lispro 100 UNIT/ML INSULN.PEN SC (12:54)
[2023-02-14 17:00] LABS: Bedside Glucose 50 mg/dL (74-106)
[2023-02-14] MEDS: Celecoxib 100 MG Capsule PO (17:22)
[2023-02-14 17:23] LABS: Bedside Glucose 67 mg/dL (74-106)
[2023-02-14] MEDS: Tamsulosin HCl 0.4 MG Capsule PO (17:24)
--- NOTE | 2023-02-14 17:25 | NURSING ---
Addendum entered by Renita Romero 02/14/23 18:36: blood sugar recheck 92. insulin changes made Original Note: dinner blood sugar 50, 120ml coke given p/pt request, recheck 67, pt's dinner arrived will recheck after he eats. Dr Gaitan aware.
[2023-02-14 18:28] LABS: Bedside Glucose 92 mg/dL (74-106)
[2023-02-14 19:09] VITALS: BP 103/70; PULSE 104; RESP 16; TEMP 36.6; O2SAT 98
[2023-02-14] MEDS: Ondansetron 8 MG Tablet PO (19:23)
--- NOTE | 2023-02-14 19:30 | NURSING ---
Patient put call light on to alert staff that he had thrown up all over himself and the floor. This nurse asked patient to get OOB and into chair so that bed could be cleaned. Patient got up to side of bed with min assist from nurse but patient struggled a bit and stated he felt weak. Upon standing and pivoting into chair patient also was a min assist x1 but plopped down in chair with no safety measure to use arm rest. Patient then reported he will stay in the recliner and use call man when he wants to get back into bed.
[2023-02-14] MEDS: MELATONIN 3 MG TABLET 6 MG PO (21:54)
[2023-02-14 21:55] VITALS: PULSE 108
[2023-02-14] MEDS: 0.9% Saline Lock 10 ML Syringe IV (21:57)
[2023-02-14 22:00] VITALS: PULSE 108; RESP 16; O2SAT 98
[2023-02-14] MEDS: Insulin Glargine-YFGN 100 UNIT/ML Pen 30 UNIT SC (22:01)
[2023-02-14 22:26] LABS: Bedside Glucose 158 mg/dL (74-106)
[2023-02-15] MEDS: Loperamide 2 MG Capsule PO ×2 (04:06→10:02)
[2023-02-15 06:00] VITALS: BMI 26.3
[2023-02-15 07:28] LABS: Bedside Glucose 71 mg/dL (74-106)
[2023-02-15 07:28] LABS: Bedside Glucose 68 mg/dL (74-106)
[2023-02-15] MEDS: Ondansetron 8 MG Tablet PO (08:51)
--- NOTE | 2023-02-15 09:14 | PCM.PROGNOTE ---
Subjective Subjective Afebrile VSS Maintaining appropriate oxygen saturation on RA Oral intake is for fluids and poor for food. Discussed with nursing - Had nausea and emesis last night and this AM has watery diarrhea. Appetite and intake poor. Hypoglycemic again this AM even with decreases in glargine and Lispro yesterday. Nursing tells me that the emesis was yellow and the stool is pinkish white? Reviewed the PT/OT/ST notes Medication list reviewed. Denies chills, night sweats, cough, shortness of breath, chest pain, palpitations, lightheadedness, abdominal cramping, dysuria and calf pain. He did not complain of a headache today.......had a dose of Celebrex last night. He is having a little discomfort in the lower abdomen. His mother had N/V the end of last week and she visited with Jad. His bowels have been moving regularly and he has had no problems. He did have 1-2 days of diarrhea earlier in the admission and it resolved without tx. Denies epigastric pain. Objective Data Objective Data Vital Signs: Vital Signs Temp Pulse Resp BP Pulse Ox O2 Del Method 97.9 F 108 H 16 103/70 98 Room Air 02/14/23 19:09 02/14/23 22:00 02/14/23 22:00 02/14/23 19:09 02/14/23 22:00 02/14/23 22:00 Oxygen Delivery Method Room Air Weight: 193 lb 9.054 oz Body Mass Index (BMI) 26.2 Intake & Output: Intake and Output for Last 24 Hours 02/13/23 02/14/23 02/15/23 23:59 23:59 23:59 Intake Total 1540 / 1840 1840 / 1840 220 / 220 Output Total 1125 / 1325 1750 / 1750 350 / 350 Balance 415 / 515 90 / 90 -130 / -130 Lab / Micro Data Result Diagrams: 02/14/23 11:05 02/10/23 05:12 Labs: Laboratory Results - last 24 hr 02/14/23 11:02: POC Glucose 159 H 02/14/23 11:05: Hgb 9.3 L, Hct 29.2 L 02/14/23 11:05: Vitamin B12 253 02/14/23 11:05: Iron 64 L, TIBC 295, Iron Saturation 21.7, Ferritin 255, Folate 13.40 02/14/23 16:42: POC Glucose 50 L 02/14/23 17:05: POC Glucose 67 L 02/14/23 18:10: POC Glucose 92 02/14/23 22:01: POC Glucose 158 H 02/15/23 06:31: POC Glucose 68 L 02/15/23 06:51: POC Glucose 71 L Micro: Microbiology 02/10/23 06:50 Stool Stool Occult Blood (ROSAURA) - Final Occult Blood Positive Radiography Diagnostic Testing: Radiology Impression Brain CT 02/14/23 10:33 IMPRESSION: 1. No acute intracranial abnormality. 2. Senescent changes. 3. Lytic bone lesions consistent with the history of multiple myeloma. Electronically Signed: Jf Ware MD at 12:05 EDT , Physical Exam Const alert and oriented x3 Constitutional Narrative: Looks tired but, in no distress. Has Malian toast and a sausage kim sitting on his breakfast tray. General Appearance: cooperative HEENT moist oral mucous membranes Eyes PERRL and EOMs intact bilaterally Neck No nuchal rigidity Resp clear to auscultation bilaterally Effort and Inspection: Negative for tachypneic or labored Cardio regular rate, regular rhythm and no gallops Cardio Narrative: No ectopy Rate: Negative for tachycardic GI normal to inspection, nondistended, normoactive bowel sounds and soft to palpation GI Narrative: No guarding with palpation. Inspection: Negative for abdominal distention Extremity no calf tenderness General Extremity: Negative for edema Skin Skin Narrative: Not diaphoretic General Skin Exam: no breakdown Rashes: no rashes Psych cooperative Psych Narrative: Affect is flat Assessment & Plan Assessment/Plan (1) Debility: (2) Subarachnoid hemorrhage: (3) Cognitive change: (4) Multiple myeloma: (5) Type 2 diabetes mellitus: (6) Generalized weakness: (7) Macrocytic anemia: (8) Hypomagnesemia: (9) GIB (gastrointestinal bleeding): (10) Gastroenteritis: PLAN: Plan 1. enteric pathogen panel and stool for lactoferrin 2. Family training today. PRN Imodium ordered. Has already received Zofran today. 3. Continue therapy. 4. Decrease the Glargine in the AM to 30 units and at night to 20 units. Hold the scheduled Lispro and put in a custom SSI regimen TID 5. Clear liquid diet today. 6. Recheck a CBC and BMP in the a.m. Charges/Coding Visit Charges Inpatient E&M: 90746 Subs Hosp L2
[2023-02-15 09:35] VITALS: BP 115/67; PULSE 101; RESP 14; TEMP 36; O2SAT 99
[2023-02-15 11:53] LABS: Bedside Glucose 141 mg/dL (74-106)
[2023-02-15] MEDS: Insulin Glargine-YFGN 100 UNIT/ML Pen 30 UNIT SC (12:35)
--- NOTE | 2023-02-15 12:55 | CASEMGMT ---
Addendum entered by Olga Sebastian 02/15/23 16:12: None of the below HHC agencies can accept d/t location. SW phoned dtr to update and request additional agencies. Dtr does not have a preference. SW offered to the other agencies on the list and provide options with accepting providers. Dtr agreeable. Placed referral to [facility], [facility], [facility], [facility], [facility], and [facility] via [facility]. Will await responses. Original Note: Social Work and dtr arrived for therapy training. SW spoke with Dr and therapist. All in agreement for DC 02/17. Dtr provided this worker with 5 HHC preferences. was asking again about [facility], however, [facility] does not have all disciplines needed and cannot do HHC and OP therapy concurrently. SW placed referrals to other skilled [facility] agencies: [facility], [facility], , [facility], [facility], via [facility]. SW updated [employer] on DC date. Plan: DC home with family support 02/17, HHC PT/OT/ST/SN/GIBBS/SW, [facility], w/c Olga Sebastian, PERIPHERAL EQUIPMENT OPERATOR [employer] DES[employer] SALES CONSULTANT
[2023-02-15] MEDS: proCHLORPERazine 5 MG Tablet 10 MG PO (13:16)
[2023-02-15 16:52] LABS: Bedside Glucose 69 mg/dL (74-106)
[2023-02-15 17:37] LABS: Bedside Glucose 65 mg/dL (74-106)
[2023-02-15] MEDS: Dextrose 50%-Water 25 GM/50 ML DISP.SYRIN IV (17:58)
[2023-02-15] MEDS: Carvedilol 6.25 MG Tablet PO (18:00)
--- NOTE | 2023-02-15 18:37 | NURSING ---
1600 blood sugar check 69 8oz coke give p/pt request. pt had emesis after intervention. recheck 65. pt refused another intervention and dinner. Dr moe made aware. new order for D50 25mg, D5 1/2NS @150ml/hr, labs and changes made to insulin. blood sugar recheck after D5 100.
[2023-02-15] MEDS: Dext 5%-0.45% NS 1,000 ML 150 ML IV (18:43)
[2023-02-15] MEDS: 0.9% Saline Lock 10 ML Syringe IV (18:50)
[2023-02-15 18:52] LABS: Bedside Glucose 100 mg/dL (74-106)
[2023-02-15 19:56] VITALS: BP 122/80; PULSE 89; RESP 18; TEMP 36.6; O2SAT 98
[2023-02-15] MEDS: Insulin Glargine-YFGN 100 UNIT/ML Pen 10 UNIT SC (23:47)
[2023-02-16 00:13] LABS: Bedside Glucose 107 mg/dL (74-106)
[2023-02-16] MEDS: Dext 5%-0.45% NS 1,000 ML 150 ML IV ×3 (02:02→20:36)
[2023-02-16 06:22] LABS: Hematocrit 25.2 % (40-54); Mean Corp Hgb Conc 31.7 g/dL (32-36); Mean Corpuscular Hgb 33.9 pg (27.0-32.0); Mean Corpuscular Volume 106.8 fL (80-94); Mean Platelet Vol. 9.3 fl (6.2-12.0); POSITIVE MORPHOLOGY YES; Platelet Count 226 K/mm3 (150-450); RBC Distribution Width CV 21.3 % (11.6-14.6); RBC Distribution Width SD 82.3 fl (35.1-43.9); Red Blood Count 2.36 M/mm3 (4.6-6.2); White Blood Count 5.3 K/mm3 (4.4-11.0)
[2023-02-16 06:24] LABS: Scan Indicated on CBC? Y/N YES- FLAGS NOTED
[2023-02-16 06:54] LABS: Bedside Glucose 81 mg/dL (74-106)
[2023-02-16 06:58] LABS: AST(SGOT) 18 U/L (15-37); Alanine Aminotransfer ALT/SGPT 29 U/L (16-61); Albumin, Serum 2.6 g/dL (3.2-5.0); Alkaline Phosphatase 55 U/L (45-117); Anion Gap 6 (5-15); BUN 16 mg/dL (7-18); BUN/Creat Ratio 35.2 RATIO (10-20); Calcium,Total 7.3 mg/dL (8.5-10.1); Chloride 111 mmol/L (98-107); Creatinine, Serum 0.46 mg/dL (0.70-1.30); EST Glomerular Filtration Rate 198 mL/min (>60); Est Glom Filt Rate - Afr Amer 240 mL/min (>60); Estimated Creatinine Clearance 178.07 ml/min; Globulin 2.7 g/dL (2.2-4.2); Glucose 83 mg/dL (74-106); Magnesium 1.4 mg/dL (1.6-2.6); Phosphorus 1.5 mg/dL (2.5-4.9); Potassium 2.5 mmol/L (3.5-5.1); Protein, Total 5.3 g/dL (6.4-8.2); Sodium Level 142 mmol/L (136-145)
[2023-02-16 07:35] VITALS: BP 122/82; PULSE 98; RESP 15; TEMP 36.9; O2SAT 96
[2023-02-16] MEDS: Potassium Chloride 10mEq/100mL 10 MEQ/100 ML IV.SOLN. 100 MEQ IV BOLUS ×7 (07:37→23:07)
[2023-02-16] MEDS: Potassium Chloride Oral Tablet 10 MEQ PO (08:06)
[2023-02-16] MEDS: Carvedilol 6.25 MG Tablet PO ×2 (08:06→17:13)
[2023-02-16] MEDS: levETIRAcetam 750 MG Tablet PO ×2 (08:06→20:43)
[2023-02-16] MEDS: Magnesium Chloride 64 MG Delay Rel.Tablet 128 MG PO (08:06)
[2023-02-16] MEDS: Calcium Carb/Vitamin D 1 TABLET Tablet PO (08:07)
[2023-02-16] MEDS: Menthol/Lanolin/Calamine/Znox 113 GM Tube 1 APPLIC TOPICAL ×2 (08:09→20:43)
[2023-02-16] MEDS: Pantoprazole Sodium 40 MG Tablet PO ×2 (09:54→20:42)
[2023-02-16] MEDS: DULoxetine Hcl 60 MG Capsule PO (09:54)
[2023-02-16] MEDS: Losartan Potassium 50 MG Tablet PO (09:54)
--- NOTE | 2023-02-16 10:18 | NURSING ---
Dr. Nguyễn requested to be paged by stone carriage operator but he is not taking his calls today and a [facility] medical staff member is. Dr. Gaitan aware and we will make an outpatient appt for patient to f\u with gastro.
--- NOTE | 2023-02-16 10:31 | PN_ITS ---
Subjective Subjective Afebrile VSS Maintaining appropriate oxygen saturation on RA Oral intake was poor yesterday and he only took 360 p.o. Overnight he had 250 p.o. Urine output was decreased yesterday at 400 and he had an additional 300 overnight. Blood sugar record was reviewed. Fasting this morning was 81. At bedtime blood sugar was 107. He is currently on D5 half-normal saline IV fluids and since he is not eating he is on sliding scale coverage every 6 hours. Discussed with nursing -no diarrhea this a.m. and he has not had an emesis today. Has not had any Compazine since yesterday afternoon. Reviewed the PT/OT/ST notes Medication list reviewed. C. difficile, enteric pathogen panel are both negative. Ova and parasites is still pending. Blood cultures are pending. Lab from this morning was personally reviewed. White blood cell count is normal at 5.3. Hemoglobin is 8, down from 9.3 on 02/14/2023 however this may be related in part to IV fluids. It was 142 today and the potassium is low at 2.5 with a chloride of 111. Serum bicarb is normal at 25 and the BUN is 16, down from 26 on 02/10/2023 and the creatinine is stable at 0.46. Phosphorus is low at 1.5 and magnesium is low at 1.4. LFTs are normal. Objective Data Objective Data Vital Signs: Vital Signs Temp Pulse Resp BP Pulse Ox O2 Del Method 98.5 F 98 15 122/82 H 96 Room Air 02/16/23 07:35 02/16/23 07:35 02/16/23 07:35 02/16/23 07:35 02/16/23 07:35 02/16/23 07:35 Oxygen Delivery Method Room Air Weight: 194 lb 0.108 oz Body Mass Index (BMI) 26.3 Intake & Output: Intake and Output for Last 24 Hours 02/14/23 02/15/23 02/16/23 23:59 23:59 23:59 Intake Total 1840 / 1840 360 / 360 2450 / 2450 Output Total 1750 / 1750 400 / 400 300 / 300 Balance 90 / 90 -40 / -40 2150 / 2150 Lab / Micro Data Result Diagrams: 02/17/23 05:32 02/17/23 05:32 Labs: Laboratory Results - last 24 hr 02/15/23 11:35: POC Glucose 141 H 02/15/23 16:34: POC Glucose 69 L 02/15/23 17:18: POC Glucose 65 L 02/15/23 18:33: POC Glucose 100 02/15/23 23:45: POC Glucose 107 H 02/16/23 06:00: WBC 5.3, RBC 2.36 L, Hgb 8.0 L, Hct 25.2 L, MCV 106.8 H, MCH 33.9 H, MCHC 31.7 L, RDW Std Deviation 82.3 H, RDW Coeff of Saad 21.3 H, Plt Count 226, MPV 9.3 02/16/23 06:00: Sodium 142, Potassium 2.5 L*, Chloride 111 H, Carbon Dioxide 25.0, Anion Gap 6, BUN 16, Creatinine 0.46 L, Estim Creat Clear Calc 178.07, Est GFR (MDRD) Af Amer 240, Est GFR (MDRD) Non-Af 198, BUN/Creatinine Ratio 35.2 H, Glucose 83, Calcium 7.3 L, Phosphorus 1.5 L, Magnesium 1.4 L, Total Bilirubin 0.40, AST 18, ALT 29, Alkaline Phosphatase 55, Total Protein 5.3 L, Albumin 2.6 L, Globulin 2.7, Albumin/Globulin Ratio 1.0 02/16/23 06:23: POC Glucose 81 Micro: Microbiology 02/16/23 06:50 Stool C. difficile GDH Antigen & Toxins - Final 02/15/23 12:07 Stool Stool Lactoferrin - Final 02/15/23 12:07 Stool Enteric Bacteriology - Final 02/10/23 06:50 Stool Stool Occult Blood (ROSAURA) - Final Occult Blood Positive Physical Exam Const alert, oriented x3 and no apparent distress Constitutional Narrative: Looks tired but, in no distress. Has Upper Sorbian toast and a sausage kim sitting on his breakfast tray. General Appearance: cooperative HEENT moist oral mucous membranes Eyes PERRL and EOMs intact bilaterally Neck No nuchal rigidity Resp clear to auscultation bilaterally Effort and Inspection: Negative for tachypneic or labored Cardio regular rate, regular rhythm and no gallops Cardio Narrative: No ectopy Rate: Negative for tachycardic GI normal to inspection, nondistended, normoactive bowel sounds, soft to palpation and non-tender GI Narrative: No guarding with palpation. Inspection: Negative for abdominal distention Extremity no calf tenderness General Extremity: Negative for edema Skin Skin Narrative: Not diaphoretic General Skin Exam: no breakdown Rashes: no rashes Psych cooperative Psych Narrative: Affect is flat Assessment & Plan Assessment/Plan (1) Debility: (2) Subarachnoid hemorrhage: (3) Cognitive change: (4) Multiple myeloma: (5) Type 2 diabetes mellitus: (6) Generalized weakness: (7) Macrocytic anemia: (8) Hypomagnesemia: (9) GIB (gastrointestinal bleeding): (10) Gastroenteritis: (11) Dehydration: (12) Hypocalcemia: (13) Hypophosphatemia: (14) Non-compliance: (15) Heme + stool: PLAN: Plan 1. Continue therapy 2. potassium, phosphorous and magnesium IV supplements have been ordered 3. Recheck a HH, BMP, Mag and Phos in the AM. 4. PCR for cryptosporidium 5. Have Jad follow up with Dr. Nguyễn as an OP for chronic intermittent diarrhea with fecal leuko's......microscopic colitis or due to drugs or Cryptosporidium Charges/Coding Visit Charges Inpatient E&M: 45751 Subs Hosp L2
[2023-02-16] MEDS: Insulin Glargine-YFGN 100 UNIT/ML Pen 10 UNIT SC ×2 (11:20→22:06)
[2023-02-16] MEDS: Lidocaine 5% Patch 1 PATCH TOPICAL (11:21)
[2023-02-16 11:27] VITALS: PULSE 89
[2023-02-16 11:27] LABS: Bedside Glucose 108 mg/dL (74-106)
[2023-02-16] MEDS: Loratadine 10 MG Tablet PO (11:27)
[2023-02-16] MEDS: hydrALAZINE 25 MG Tablet 50 MG PO (11:27)
[2023-02-16] MEDS: Acyclovir 200 MG Capsule 400 MG PO ×2 (11:28→20:43)
[2023-02-16] MEDS: Magnesium Sulfate 4gm/100mL 4 GM/100 ML IV.SOLN. IV (11:55)
--- NOTE | 2023-02-16 13:42 | CASEMGMT ---
Social Work SW continues to refer to multiple [facility] agencies and no one is able to service pt's area. SW contacted [facility] as that is the only agency that can service pt's address, however, they do not have ST or SW. Pt can follow up with outpatient ST after [facility] discharges. Updated clinicals sent to [facility]. SW updated pt and dtr. Plan: DC home with 02/17, [facility] PT/OT/SN/SAI Sebastian, PERSONAL SECRETARY PATIENT RELATIONS COORDINATOR
[2023-02-16 16:22] LABS: Bedside Glucose 105 mg/dL (74-106)
[2023-02-16] MEDS: Tamsulosin HCl 0.4 MG Capsule PO (17:13)
[2023-02-16 20:00] VITALS: BP 100/67; PULSE 96; RESP 18; TEMP 36.7; O2SAT 95
[2023-02-16] MEDS: MELATONIN 3 MG TABLET 6 MG PO (20:42)
[2023-02-16] MEDS: Loperamide 2 MG Capsule PO (20:43)
[2023-02-16 20:46] VITALS: BP 100/67; PULSE 96
[2023-02-16 22:26] LABS: Bedside Glucose 106 mg/dL (74-106)
[2023-02-17] MEDS: Potassium Chloride 10mEq/100mL 10 MEQ/100 ML IV.SOLN. 100 MEQ IV BOLUS (00:32)
[2023-02-17] MEDS: Dext 5%-0.45% NS 1,000 ML 150 ML IV (05:27)
[2023-02-17 05:29] VITALS: BMI 26.7
[2023-02-17 05:37] LABS: Hematocrit 23.7 % (40-54); Hemoglobin 7.3 g/dL (13.0-16.5)
[2023-02-17] MEDS: Insulin Lispro 100 UNIT/ML INSULN.PEN SC (05:39)
[2023-02-17 06:01] LABS: Anion Gap 3 (5-15); BUN 10 mg/dL (7-18); BUN/Creat Ratio 22.5 RATIO (10-20); Calcium,Total 6.9 mg/dL (8.5-10.1); Chloride 113 mmol/L (98-107); Creatinine, Serum 0.44 mg/dL (0.70-1.30); EST Glomerular Filtration Rate 203 mL/min (>60); Est Glom Filt Rate - Afr Amer 246 mL/min (>60); Estimated Creatinine Clearance 186.16 ml/min; Glucose 147 mg/dL (74-106); Phosphorus 1.6 mg/dL (2.5-4.9); Potassium 3.2 mmol/L (3.5-5.1); Sodium Level 141 mmol/L (136-145)
[2023-02-17 06:36] LABS: Bedside Glucose 142 mg/dL (74-106)
[2023-02-17 08:04] VITALS: BP 153/52; PULSE 71
[2023-02-17] MEDS: Pantoprazole Sodium 40 MG Tablet PO (08:04)
[2023-02-17] MEDS: Losartan Potassium 50 MG Tablet PO (08:04)
[2023-02-17] MEDS: Smz/Tmp Ds Tablet 1 TABLET PO (08:04)
[2023-02-17] MEDS: DULoxetine Hcl 60 MG Capsule PO (08:04)
[2023-02-17] MEDS: Acyclovir 200 MG Capsule 400 MG PO (08:04)
[2023-02-17] MEDS: Potassium Chloride Oral Tablet 10 MEQ PO (08:04)
[2023-02-17] MEDS: hydrALAZINE 25 MG Tablet 50 MG PO (08:04)
[2023-02-17] MEDS: Magnesium Chloride 64 MG Delay Rel.Tablet 128 MG PO (08:04)
[2023-02-17] MEDS: Loratadine 10 MG Tablet PO (08:04)
[2023-02-17] MEDS: Lidocaine 5% Patch 1 PATCH TOPICAL (08:05)
[2023-02-17] MEDS: levETIRAcetam 750 MG Tablet PO (08:05)
[2023-02-17] MEDS: Carvedilol 6.25 MG Tablet PO (08:05)
[2023-02-17] MEDS: Menthol/Lanolin/Calamine/Znox 113 GM Tube 1 APPLIC TOPICAL (08:05)
[2023-02-17] MEDS: Calcium Carb/Vitamin D 1 TABLET Tablet PO (08:05)
[2023-02-17 08:16] VITALS: BP 100/67; PULSE 93; RESP 16; TEMP 36.6; O2SAT 98
[2023-02-17] MEDS: Insulin Glargine-YFGN 100 UNIT/ML Pen 10 UNIT SC (10:25)
--- NOTE | 2023-02-17 10:31 | PCM.DC ---
Discharge Instructions Diet Discharge Diet: - (Low salt, Low fat, 2,200 calorie carb controlled diet.) Activity Discharge Activity: May Not Drive, May Shower and Use Walker Weight Bearing Status: Full weight bearing Dressing / Incision Call your doctor if you observe: Fever of 101 or Higher, Shortness of breath, Dizziness, Fainting spells, Swelling in the ankles, Chest pain, Increased palpitations (irregular heartbeat), Calf discomfort, Uncontrolled pain and - (persistent vomiting, inability to keep fluids down, more than 5 stools a day) Follow Up Care Please Follow Up With: Gadiel Morris MD When: 02/22/23. Test Results: Test results from this visit will be discussed in further detail at your follow-up appointment, if applicable. Pending Tests Upon Discharge: Blood cultures X 2 from 02/15. Stool O&P Discharge Plan Admission Admit Date/Time: 01/31/23 20:19 Primary Reason for Your Visit: Post stroke debiity Attending Provider: Bernice Gaitan Primary Care Provider: Gadiel Morris Consulting Providers: Dany Traore Chi Instructions Patient Instructions: Cancer Care- Controlling Diarrhea, Cancer and Nutrition Foods to ... Additional Instructions / Restrictions: 1. You may not drive. You still have significant cognitive dysfunction and it is not safe. 2. We have made an appt for you to follow up with gastroenterology for recurrent diarrhea. 3. You must drink enough fluid to stay hydrated. If you are feeling lightheaded when you stand then you need to increase your fluid intake. 4. You have an appt with Juan José Morris on 02/22/23. The results of the blood cultures and the stool for ova and parasites are still pending and these can be reviewed at your office visit. 5. You had white blood cells in your stool. The cause of the nausea and vomiting has not yet been determined. It may not be due to the cancer and chemo. The kapok machine operator will see you and likely run some more tests. Stay away from fatty foods, dairy, spicy foods and caffeine. 6. I am giving you a lab slip to obtain some lab work on Monday. Your potassium and phosphorous are still low on the day of discharge and I having given you additional supplements prior to DC and will continue them for the next few days. Please call me on Monday or Monday if you have the lab drawn in the AM and I will review the results with you. 7. Obviously you have not been eating the past few days. you had been taking 30 units of long acting insulin at night and 60 units in the AM with 20 units of short acting insulin with each meal. You can not take that much until you are eating well again. I am going to give you a sliding scale to follow for meals. If the blood sugars are consistently running > 250 call me and I will tell you what to do with the insulin over the phone. It is very important to keep the Blood sugars tightly controlled for a NUMBER OF REASONS. You are immunocompromised by cancer and by the medications used to treat the cancer. Uncontrolled blood sugars lead to increased infections and poor outcomes. There is a tarring machine operator in [place]. Her name is Dr. Ceasar Nieves. 8. If you have any questions after you leave rehab please do not hesitate to call me. OFFICE: [phone] CELL: [phone] Sliding scale insulin scale. Short acting insulin. 120-150 2 units 151-180 3 units 181-210 4 units 211-240 5 units 241-270 7 units 271-300 10 units 301-340 12 units >340 15 units Discharge Orders/Prescriptions Prescriptions: New losartan 50 mg Tablet 50 mg PO DAILY Qty: 30 0RF hydralazine 25 mg Tablet 50 mg PO BID Qty: 60 0RF pantoprazole 40 mg Tablet,Delayed Release (Dr/Ec) 40 mg PO BID Qty: 6 0RF duloxetine 60 mg Capsule,Delayed Release(Dr/Ec) 60 mg PO DAILY Qty: 30 0RF acetaminophen 325 mg Tablet 650 mg PO Q4H PRN PRN (Reason: Pain/fever) Qty: 0 0RF insulin aspart U-100 100 unit/mL (3 mL) insulin pen 20 unit subcut TID Qty: 18 0RF lidocaine 5 % Adhesive Patch,Medicated 1 patch topical DAILY Qty: 30 0RF Protocol: *Topical Application Instructions APPLICATION INSTRUCTIONS: lumbar Mag 64 64 mg Tablet,Delayed Release (Dr/Ec) 128 mg PO DAILY Qty: 30 0RF potassium chloride 20 mEq tablet extended release 20 meq PO BID Qty: 60 0RF Rx Instructions: Take 1 tab BID X 3 days and then call for instructions potassium, sodium phosphates [Phosphorous Supplement] 280-160-250 mg powder in packet 2 packet PO TIDCM Qty: 12 0RF insulin detemir U-100 100 unit/mL (3 mL) insulin pen 40 unit subcut BID Qty: 27 0RF Continued acyclovir 400 mg tablet 400 mg PO BID carvedilol 6.25 mg Tablet 6.25 mg PO BID loperamide 2 mg Capsule 2 mg PO Q6H PRN (Reason: Diarrhea) cetirizine [Zyrtec] 10 mg Tablet 10 mg PO DAILY sulfamethoxazole-trimethoprim [Bactrim DS] 800-160 mg Tablet 1 tab PO MOWEFR tamsulosin [Flomax] 0.4 mg Capsule 0.4 mg PO QHS calcium carbonate-vitamin D3 200 mg (500 mg) -400 unit Tablet 1 tab PO DAILY melatonin 5 mg Tablet 6 mg PO QHS prochlorperazine maleate [Compazine] 10 mg Tablet 10 mg PO Q6H PRN (Reason: Nausea) Qty: 20 0RF Rx Instructions: if Zofran not effective levetiracetam [Keppra] 750 mg Tablet 750 mg PO BID Qty: 60 0RF Discontinued duloxetine 30 mg capsule,delayed release(DR/EC) 30 mg PO DAILY lidocaine [Salonpas (lidocaine)] 4 % Adhesive Patch,Medicated 1 patch TOPICAL DAILY PRN (Reason: Pain) Rx Instructions: LUMBAR hydralazine [Apresoline] 100 mg Tablet 75 mg PO BID pantoprazole [Protonix] 40 mg Tablet,Delayed Release (Dr/Ec) 40 mg PO DAILY dexamethasone [Decadron] 0.75 mg Tablet 1 mg PO DAILY Label Comments: STOP DATE 02/05 Rx Instructions: TAKING 02/01 AND END ON 02/05 losartan [Cozaar] 100 mg Tablet 100 mg PO DAILY insulin glargine 100 unit/mL (3 mL) Insulin Pen 48 unit SUBCUT BREAKFAST insulin glargine 100 unit/mL (3 mL) Insulin Pen 48 unit SUBCUT QHS No Action ondansetron HCl [Zofran] 8 mg Tablet 8 mg PO Q8H PRN (Reason: nausea/vomiting) Other Ambulatory Orders: Albumin, Serum (Routine) Timeframe: 20230220 Facility: [facility] - Location: Laboratory Ordered By: Dr. Bernice Gaitan Basic Metabolic Profile (BMP) (Routine) Timeframe: 20230220 Facility: [facility] - Location: Laboratory Ordered By: Dr. Bernice Gaitan CBC-Complete Blood Cnt No Diff (Routine) Timeframe: 20230220 Facility: [facility] - Location: Laboratory Ordered By: Dr. Bernice Gaitan Magnesium (Routine) Timeframe: 20230220 Facility: [facility] - Location: Laboratory Ordered By: Dr. Bernice Gaitan Phosphorus (Routine) Timeframe: [id number] Facility: [facility] - Location: Laboratory Ordered By: Dr. Bernice Gaitan Referrals / Follow Up: Gadiel Morris MD [Primary Care Provider] - 02/22/23 2:25 pm Cheyanne Joel NP, [facility] [Med Staff - Adv Practice Prof] - 02/23/23 1:00 pm Disposition Disposition (needs filled in before D/C Order can be placed): Home, Self Care
[2023-02-17 10:40] LABS: Bedside Glucose 128 mg/dL (74-106)
--- NOTE | 2023-02-17 10:56 | NURSING ---
Tab for Dr. Green office, requesting earlier visit with Dr Peter NP. Due to pt discharging today at 1pm, I also provided his home phone number.
--- NOTE | 2023-02-17 11:00 | CASEMGMT ---
Social Work Received call from [facility] and they are not INN with insurance. Pt will need to complete outpatient therapy as there are no other [facility] agencies that can accept. SW left voicemail with dtr requesting call back. Previously, family mentioned [facility] as that is closest. TERRY faxed referral to [facility] PT/OT/ST. Olga Sebastian, PATTERNMAKER APPRENTICE METAL JOB SITE SUPERINTENDENT
[2023-02-17 12:12] VITALS: BP 105/70; PULSE 97; RESP 18; TEMP 36.6; O2SAT 100
--- NOTE | 2023-02-17 12:18 | EX.DISCHREH ---
Providers Date of Admission: 01/31/23 Date of Discharge: 02/17/23 Primary Care Physician: Dr. Gadiel Morris MD Consultations - he was not seen by GI for either of these consults so they have been cancelled. Jad will follow up with Cheyanne Toure NP following DC. 02/09/23 11:19 Consult: Gastroenterology Routine Consulting Provider: [facility] Reason for Consult: suspected GI bleed/anemia EMERGENT Consult: No Notified: Yes Date Notified: 02/09/23 Time Notified: 11:19 Method of Notification: Text 02/16/23 11:51 Consult: Gastroenterology Routine Consulting Provider: [facility] Reason for Consult: positive occult stool EMERGENT Consult: No Notified: Yes Date Notified: 02/16/23 Time Notified: 11:51 Method of Notification: Text Method of Consult:: In-Person Comments:: Cheyanne Joel aware and spoke to Dr. Gaitan Reason For Visit: SA[facility] Diagnosis Discharge Diagnosis (1) Debility: Status: Acute Code(s): R53.81 - Other malaise (2) Subarachnoid hemorrhage: Status: Acute Code(s): I60.9 - Nontraumatic subarachnoid hemorrhage, unspecified Plan: When he had severe thrombocytopenia. (3) Cognitive change: Status: Acute Code(s): R41.89 - Other symptoms and signs involving cognitive functions and awareness (4) Multiple myeloma: Status: Acute Code(s): C90.00 - Multiple myeloma not having achieved remission (5) Type 2 diabetes mellitus: Status: Acute Code(s): E11.9 - Type 2 diabetes mellitus without complications Plan: Historically not well controlled due to non-compliance with diet and manipulation of his medication without consulting his doctor. (6) Generalized weakness: Status: Acute Code(s): R53.1 - Weakness (7) Macrocytic anemia: Status: Acute Code(s): D53.9 - Nutritional anemia, unspecified (8) Hypomagnesemia: Status: Acute Code(s): E83.42 - Hypomagnesemia (9) Gastroenteritis: Status: Acute Code(s): K52.9 - Noninfective gastroenteritis and colitis, unspecified (10) Dehydration: Status: Acute Code(s): E86.0 - Dehydration (11) Hypocalcemia: Status: Acute Code(s): E83.51 - Hypocalcemia (12) Hypophosphatemia: Status: Acute Code(s): E83.39 - Other disorders of phosphorus metabolism (13) Non-compliance: Status: Acute Code(s): Z91.199 - Patient's noncompliance with other medical treatment and regimen due to unspecified reason (14) Heme + stool: Status: Acute Code(s): R19.5 - Other fecal abnormalities (15) Depression: Status: Acute Code(s): F32.A - Depression, unspecified (16) Hyperlipidemia: Status: Acute Code(s): E78.5 - Hyperlipidemia, unspecified (17) Hypertension: Status: Chronic Code(s): I10 - Essential (primary) hypertension (18) Coronary artery disease: Status: Acute Code(s): I25.10 - Atherosclerotic heart disease of [place] coronary artery without angina pectoris Plan 1. DC home. I asked if he would stay until the Phos and mag are normal and the HH is stable........suspect it is low due to IV hydration/dilution. He refused. 2. Would not stay to even have 1 dose of IV phosphorous. 3. Will DC on Mag and phos supplements. 4. Lab requisition to obtain BMP, CBC, Mag and phos on Monday and he will call me for results. 5. NO driving. Medications at Discharge Home Medications acyclovir 400 mg tablet 400 mg PO BID Check with primary doctor 07/24/18 calcium carbonate 200 mg calcium (500 mg)-vitamin D3 400 unit tablet 1 tab PO DAILY SUPPLEMENT 01/31/23 carvedilol 6.25 mg tablet 6.25 mg PO BID HEART 01/31/23 cetirizine 10 mg tablet (Zyrtec) 10 mg PO DAILY ANTIHYSTAMINE 01/31/23 loperamide 2 mg capsule 2 mg PO Q6H PRN Diarrhea 01/31/23 melatonin 5 mg tablet 6 mg PO QHS SLEEP AID 01/31/23 sulfamethoxazole 800 mg-trimethoprim 160 mg tablet (Bactrim DS) 1 tab PO MOWEFR INFECTION 01/31/23 tamsulosin 0.4 mg capsule (Flomax) 0.4 mg PO QHS RETENTION 01/31/23 ondansetron HCl 8 mg tablet 8 mg PO Q8H PRN nausea/vomiting 02/01/23 acetaminophen 325 mg tablet 650 mg PO Q4H PRN PRN Pain/fever #0 tabs 02/17/23 duloxetine 60 mg capsule,delayed release 60 mg PO DAILY #30 caps 02/17/23 hydralazine 25 mg tablet 50 mg PO BID #60 tabs 02/17/23 insulin aspart U-100 100 unit/mL (3 mL) subcutaneous pen 20 unit (0.2 mL) subcut TID #18 mL 02/17/23 insulin detemir U-100 100 unit/mL (3 mL) subcutaneous pen 40 unit (0.4 mL) subcut BID #27 mL 02/17/23 levetiracetam 750 mg tablet (Keppra) 750 mg PO BID SEIZURE #60 tabs 02/17/23 lidocaine 5 % topical patch 1 patch topical DAILY #30 ea 02/17/23 losartan 50 mg tablet 50 mg PO DAILY #30 tabs 02/17/23 magnesium chloride 64 mg (magnesium chloride) tablet,delayed release (Mag 64) 128 mg PO DAILY #30 tabs 02/17/23 pantoprazole 40 mg tablet,delayed release 40 mg PO BID #6 tabs 02/17/23 potassium chloride 20 mEq tablet,extended release 20 meq PO BID #60 tabs 02/17/23 potassium, sodium phosphates 280 mg-160 mg-250 mg oral powder packet (Phosphorous Supplement) 2 packet PO TIDCM #12 ea 02/17/23 prochlorperazine maleate 10 mg tablet (Compazine) 10 mg PO Q6H PRN Nausea #20 tabs 02/17/23 Hospital Course Operations None Procedures None Summary of Care Provided Minutes Spent on Discharge: 45 Hospital Course: Jad is a 62-year-old male with a past medical history of multiple myeloma, diabetes mellitus type 2, hypertension, hyperlipidemia, coronary artery disease and peripheral vascular disease who was admitted to [facility] on 12/19/2022 for engineered cellular therapy for multiple myeloma. On 12/28/2022 he had a decline in mental status and a fever of 100.8. He was placed on Zosyn and blood cultures were negative. Chest x-ray revealed no infiltrates. On 12/31/2022 the blood Cultures became positive for Gosia albicans and the patient was treated with micafungin. While at [facility] he had severe thrombocytopenia and had a nonprovoked, nontraumatic subarachnoid hemorrhage. Following a course of micafungin the patient was discharged to [facility] acute rehab for 3 hours of therapy daily to restore function/independence at or near his level prior to admission to the [facility]. Dexamethasone was being tapered at the time of arrival to rehab and the blood sugars were uncontrolled with BS's in the high 300's and low 400's. HGB was 7.5 on 02/09/2023, down from 11 on 02/01/2023. Stool was Hemoccult positive. Recheck on the hemoglobin was 8.7 and he never required transfusion. Hemoglobin once again dropped to 7.3 on 02/17/23 and I suspect the drop was due to aggressive hydration for dehydration and low BP due to severe watery diarrhea. On 02/20/23 the HGB was 9.5. Platelets were within normal limits the entire time he was in rehab. Jad was depressed and on Cymbalta 30 mg at the time he arrived on rehab. That being said he was sleeping well and had a good intake and appetite. About 1 week prior to DC he lost his appetite and was not eating. He was becoming progressively more depressed about not being home since he entered [facility] on 12/18/22. Cymbalta was increased to 60 mg daily. The week he was to be discharged home he developed severe watery diarrhea along with N/V. Enteric pathogen panel was negative and so was the DIFF. Fecal leuko's were +. BC's were negative. O&P is still pending on 02/21/23 when I am dictating his DC summary. The diarrhea has improved. He has a follow up scheduled with Cheyanne Joel gastroenterology nurse practitioner a few days post discharge. Jad did well in therapy. He was constantly asking to go home but, he never refused therapy. He was mod I for eating and supervision/set up for grooming. He was also supervision/set up for upper body dressing and bathing. He required minimal assistance with lower body dressing and moderate assistance with toileting/posterior hygiene. He is contact-guard assist for toilet transfer and tub/shower transfer. He is able to do for stands from a regular height chair with a firm question at the time of discharge. He is able to ascend/descend to 7 inch steps with 1 handrail and a straight cane at contact-guard assist. He has ambulated up to 200 feet on various surfaces at contact-guard assist/standby assist with a wheeled walker. He is still not able to complete complex money management tasks using compensatory strategies at a goal of least 90%. He is not able to independently manage his medications with at least 90% accuracy and will need supervision following discharge. He has not met most of the goals the ST set for him. Family felt that he would do better at home rather than going to an SNF [place] from rehab because he was getting more and more depressed about not going home. Jad's and dtr, Staci, came in for family training prior to Jad being discharged and the family is working on a schedule to provide supervision at home. Jad's Yanni has some significant memory deficits and she will not be able to care for Jad without supervision for herself. On the Monday he was to go home, despite supplementation started the preceding day, the phos was only 1.1 and the HGB was 7.3. Jad refused to wait to have IV phosphorous and then go home and he refused to stay another day. He was given a RX for Neutraphos 2 pkt's TID and a lab requisition to have qa CBC, BMP, mag and phos on 02/20/23. Labs from 02/20/2023 showed a normal white blood cell count at 6.1 and a hemoglobin of 9.5 which is stable. Platelets were 344,000. Sodium is normal at 137 and the potassium is 3.9. The BUN was 7 which is the best its been since his admission to rehab. Creatinine is 0.53 and stable. Calcium was 8.5 and the phosphorus was still low at 1.1. A prescription for Neutra-Phos 2 packets 3 times daily for 7 additional days was called into his pharmacy. There is some question about whether or not his prescriptions were picked up at the pharmacy on the day of NM. Jad was discharged on 02/17/23 and has an appt to follow up with Gadiel Rodriguez MD on 02/22/23 at 2:25 PM and with Cheyanne Joel NP from gastroenterology on 02/23/2023 at 1 PM. I can not explain the + stool lactoferrin.......unless the O&P test is positive. Hopefully the results of the O&P will be available when he sees Dr. Rodriguez and Cheyanne Joel. If the O&P is negative I think we need to consider he may have microscopic colitis or an IBD. He could also have gluten sensitive enteropathy. Jad has multiple appts at [facility] for follow up on Multiple myeloma. He will need to have a repeat Phos level drawn in 1 week. He wqas instructed not to drive. He needs further ST prior to even considering driving and I recommend that if he wants to resume driving he attend the driving school in [place] to make sure he is safe to drive since he continues to have cognitive deficit. Physical Exam Const alert, oriented x3 and no apparent distress Constitutional Narrative: Very flat affect. Seems down. He is making eye contact with me when we talk. I am hopeful that his mood will improve when he gets home. General Appearance: cooperative HEENT normocephalic, head/scalp atraumatic and moist oral mucous membranes HEENT Narrative: Somewhat [place] and I often have to repeat myself. No evidence of thrush. Denies mouth pain or painful swallowing. Eyes PERRL, EOMs intact bilaterally, conjunctivae normal and no scleral icterus Eyes Narrative: no visual loss. Neck no lymphadenopathy Resp Resp Narrative: Few coarse crackles in the bases that mostly cleared after a few deep breaths. No wheezing, not tachypneic and he is not labored. Effort and Inspection: able to speak in complete sentences and symmetric chest movement Cardio regular rate, regular rhythm, no rub and no gallops GI GI Narrative: ND, NT to palpation, no excessive tympany, BS's are not hyperactive, No masses. SOft. no CVA tenderness Extremity no calf tenderness and no pedal edema Skin Skin Narrative: He is pale but he has no rashes and there is no skin breakdown. Neuro oriented x3 and moves all extremities Neuro Narrative: no visual loss. Psych cooperative Psych Narrative: depressed affect. Appearance: appropriate Attitude: calm Activity / Motor Behavior: Negative for psychomotor agitation, fidgetting or disorganized Weight / BMI Weight Weight: 197 lb 5.019 oz Body Mass Index (BMI) 26.7 ABG / Lab / Microbiology Data Result Diagrams: 02/17/23 05:32 02/17/23 05:32 Laboratory: Laboratory Results - last 24 hr 02/16/23 16:04: POC Glucose 105 02/16/23 18:20: Potassium 3.0 L 02/16/23 22:06: POC Glucose 106 02/17/23 05:32: Hgb 7.3 L, Hct 23.7 L 02/17/23 05:32: Sodium 141, Potassium 3.2 L, Chloride 113 H, Carbon Dioxide 25.0, Anion Gap 3 L, BUN 10, Creatinine 0.44 L, Estim Creat Clear Calc 186.16, Est GFR (MDRD) Af Amer 246, Est GFR (MDRD) Non-Af 203, BUN/Creatinine Ratio 22.5 H, Glucose 147 H, Calcium 6.9 L, Phosphorus 1.6 L, Magnesium 2.0 02/17/23 05:37: POC Glucose 142 H 02/17/23 10:22: POC Glucose 128 H Microbiology: Microbiology 02/16/23 06:50 Stool C. difficile GDH Antigen & Toxins - Final 02/15/23 12:07 Stool Stool Lactoferrin - Final 02/15/23 12:07 Stool Enteric Bacteriology - Final 02/10/23 06:50 Stool Stool Occult Blood (ROSAURA) - Final Occult Blood Positive Indicators for Scoring Admitted with or Primary Diagnosis of CVA/Stroke: Yes Hx of CVA/Stroke: Yes Modified Zahira Score MRS Score at time of Evaluation: 4-Moderate/severe disability NIHSS NIHSS 1a. Level of Consciousness: Alert; keenly responsive 1b. LOC Questions: Answers BOTH questions correctly. 1c. LOC Commands: Performs both tasks correctly. 2. Best Gaze: Normal 3. Visual: No visual loss 4. Facial Palsy: Normal symmetrical movements 5a. Left Arm: No drift; arm holds 90 (or 45) degrees for full 10 seconds 5b. Right Arm: No drift; arm holds 90 (or 45) degrees for full 10 seconds 6a. Left Leg: No drift; leg holds 30-degree position for full 5 seconds 6b. Right Leg: No drift; leg holds 30-degree position for full 5 seconds 7. Limb Ataxia: Absent 8. Sensory: Normal; no sensory loss 9. Best Language: No aphasia; normal (speech is fluent) 10. Dysarthria: Normal 11. Extinction and Inattention: No abnormality Total: 0 (Higher level functioning is impaired such as medication management, senior financial reporting accountant, complex problem resolution. Will need supervised with these activities. Balance is impaired also but, he is not ataxic. ) Stroke Questions Stroke Team Activated: No D/C Instructions Discharge Diet: - (Low salt, Low fat, 2,200 calorie carb controlled diet.) Weight Bearing Status: Full weight bearing Call your doctor if you observe: Fever of 101 or Higher, Shortness of breath, Dizziness, Fainting spells, Swelling in the ankles, Chest pain, Increased palpitations (irregular heartbeat), Calf discomfort, Uncontrolled pain and - (persistent vomiting, inability to keep fluids down, more than 5 stools a day) Please Follow Up With: Gadiel Morris MD When: 02/22/23. Meaningful Use Info Meaningful Use Diagnoses (Choose all that apply): Hemorrhagic CVA CVA Therapy Assessed for PT,OT and/or ST?: Yes Discharge Plan Admission Admit Date/Time: 01/31/23 20:19 Primary Reason for Your Visit: Post stroke debiity Attending Provider: Bernice Gaitan Primary Care Provider: Gadiel Morris Consulting Providers: Dany Traore Chi Instructions Patient Instructions: Cancer Care- Controlling Diarrhea, Cancer and Nutrition Foods to ... Additional Instructions / Restrictions: 1. You may not drive. You still have significant cognitive dysfunction and it is not safe. 2. We have made an appt for you to follow up with gastroenterology for recurrent diarrhea. 3. You must drink enough fluid to stay hydrated. If you are feeling lightheaded when you stand then you need to increase your fluid intake. 4. You have an appt with Juan José Morris on 02/22/23. The results of the blood cultures and the stool for ova and parasites are still pending and these can be reviewed at your office visit. 5. You had white blood cells in your stool. The cause of the nausea and vomiting has not yet been determined. It may not be due to the cancer and chemo. The hand edger will see you and likely run some more tests. Stay away from fatty foods, dairy, spicy foods and caffeine. 6. I am giving you a lab slip to obtain some lab work on Monday. Your potassium and phosphorous are still low on the day of discharge and I having given you additional supplements prior to DC and will continue them for the next few days. Please call me on Monday or Monday if you have the lab drawn in the AM and I will review the results with you. 7. Obviously you have not been eating the past few days. you had been taking 30 units of long acting insulin at night and 60 units in the AM with 20 units of short acting insulin with each meal. You can not take that much until you are eating well again. I am going to give you a sliding scale to follow for meals. If the blood sugars are consistently running > 250 call me and I will tell you what to do with the insulin over the phone. It is very important to keep the Blood sugars tightly controlled for a NUMBER OF REASONS. You are immunocompromised by cancer and by the medications used to treat the cancer. Uncontrolled blood sugars lead to increased infections and poor outcomes. There is a vocational rehabilitation counselor in [place]. Her name is Dr. Ceasar Nieves. 8. If you have any questions after you leave rehab please do not hesitate to call me. OFFICE: [phone] CELL: [phone] Sliding scale insulin scale. Short acting insulin. 120-150 2 units 151-180 3 units 181-210 4 units 211-240 5 units 241-270 7 units 271-300 10 units 301-340 12 units >340 15 units Discharge Orders/Prescriptions Prescriptions: New losartan 50 mg Tablet 50 mg PO DAILY Qty: 30 0RF hydralazine 25 mg Tablet 50 mg PO BID Qty: 60 0RF pantoprazole 40 mg Tablet,Delayed Release (Dr/Ec) 40 mg PO BID Qty: 6 0RF duloxetine 60 mg Capsule,Delayed Release(Dr/Ec) 60 mg PO DAILY Qty: 30 0RF acetaminophen 325 mg Tablet 650 mg PO Q4H PRN PRN (Reason: Pain/fever) Qty: 0 0RF insulin aspart U-100 100 unit/mL (3 mL) insulin pen 20 unit subcut TID Qty: 18 0RF lidocaine 5 % Adhesive Patch,Medicated 1 patch topical DAILY Qty: 30 0RF Protocol: *Topical Application Instructions APPLICATION INSTRUCTIONS: lumbar Mag 64 64 mg Tablet,Delayed Release (Dr/Ec) 128 mg PO DAILY Qty: 30 0RF potassium chloride 20 mEq tablet extended release 20 meq PO BID Qty: 60 0RF Rx Instructions: Take 1 tab BID X 3 days and then call for instructions potassium, sodium phosphates [Phosphorous Supplement] 280-160-250 mg powder in packet 2 packet PO TIDCM Qty: 12 0RF insulin detemir U-100 100 unit/mL (3 mL) insulin pen 40 unit subcut BID Qty: 27 0RF Continued acyclovir 400 mg tablet 400 mg PO BID carvedilol 6.25 mg Tablet 6.25 mg PO BID loperamide 2 mg Capsule 2 mg PO Q6H PRN (Reason: Diarrhea) cetirizine [Zyrtec] 10 mg Tablet 10 mg PO DAILY sulfamethoxazole-trimethoprim [Bactrim DS] 800-160 mg Tablet 1 tab PO MOWEFR tamsulosin [Flomax] 0.4 mg Capsule 0.4 mg PO QHS calcium carbonate-vitamin D3 200 mg (500 mg) -400 unit Tablet 1 tab PO DAILY melatonin 5 mg Tablet 6 mg PO QHS prochlorperazine maleate [Compazine] 10 mg Tablet 10 mg PO Q6H PRN (Reason: Nausea) Qty: 20 0RF Rx Instructions: if Zofran not effective levetiracetam [Keppra] 750 mg Tablet 750 mg PO BID Qty: 60 0RF Discontinued duloxetine 30 mg capsule,delayed release(DR/EC) 30 mg PO DAILY lidocaine [Salonpas (lidocaine)] 4 % Adhesive Patch,Medicated 1 patch TOPICAL DAILY PRN (Reason: Pain) Rx Instructions: LUMBAR hydralazine [Apresoline] 100 mg Tablet 75 mg PO BID pantoprazole [Protonix] 40 mg Tablet,Delayed Release (Dr/Ec) 40 mg PO DAILY dexamethasone [Decadron] 0.75 mg Tablet 1 mg PO DAILY Label Comments: STOP DATE 02/05 Rx Instructions: TAKING 02/01 AND END ON 02/05 losartan [Cozaar] 100 mg Tablet 100 mg PO DAILY insulin glargine 100 unit/mL (3 mL) Insulin Pen 48 unit SUBCUT BREAKFAST insulin glargine 100 unit/mL (3 mL) Insulin Pen 48 unit SUBCUT QHS No Action ondansetron HCl [Zofran] 8 mg Tablet 8 mg PO Q8H PRN (Reason: nausea/vomiting) Referrals / Follow Up: Gadiel Morris MD [Primary Care Provider] - 02/22/23 2:25 pm Cheyanne Joel NP, GARMENT SUPERVISOR-C [Med Staff - Adv Practice Prof] - 02/23/23 1:00 pm Disposition Disposition (needs filled in before D/C Order can be placed): Home, Self Care Charges/Coding Visit Charges Inpatient E&M: 32890 Disch Hosp >30min
[2023-02-17] MEDS: Potassium Chloride Oral Tablet 20 MEQ 40 MEQ PO (12:58)
[2023-02-17 13:19] LABS: Bedside Glucose 108 mg/dL (74-106)
[2023-02-20 12:00] LABS: Bedside Glucose 141 mg/dL (74-106)
--- NOTE | 2023-02-20 14:03 | PN_ITS ---
Progress Note Reviewed he lab Jad had done as an OP today. K is 3.7, is 137, BUN is 7 and the creatinine is 0.53. Magnesium is normal at 1.7 but the phosphorus is low at 1.1 despite being discharged on Neutra-Phos. CBC shows a normal white blood cell count of 6.1 with a hemoglobin of 9.5 which is stable. Platelets are within normal limits at 344. Pt was notified that the Phos is low and a RX was called in for Neutraphos 2 pkt TID for 1 week. #42 to [facility] in [place].
== END 2023-02-17 14:32 | disposition home or self-care (01) | DRG 57 ==
PROVIDERS: Admitting Provider Family Medicine Geriatric Medicine; PCP Family Medicine; Visit Provider Internal Medicine
DX: I69.018 Other symptoms and signs involving cognitive functions following nontraumatic subarachnoid hemorrhage (principal); B49 Unspecified mycosis; I50.20 Unspecified systolic (congestive) heart failure; C90.00 Multiple myeloma not having achieved remission; E11.649 Type 2 diabetes mellitus with hypoglycemia without coma; D69.6 Thrombocytopenia, unspecified; E83.39 Other disorders of phosphorus metabolism; E83.51 Hypocalcemia; I11.0 Hypertensive heart disease with heart failure; I48.91 Unspecified atrial fibrillation; Z79.4 Long term (current) use of insulin; G40.909 Epilepsy, unspecified, not intractable, without status epilepticus; D53.9 Nutritional anemia, unspecified; E78.5 Hyperlipidemia, unspecified; K52.839 Microscopic colitis, unspecified; E83.42 Hypomagnesemia; I25.10 Atherosclerotic heart disease of native coronary artery without angina pectoris; J30.9 Allergic rhinitis, unspecified; F17.220 Nicotine dependence, chewing tobacco, uncomplicated; Z91.119 Patient's noncompliance with dietary regimen due to unspecified reason; F32.A Depression, unspecified; N40.0 Benign prostatic hyperplasia without lower urinary tract symptoms; Z79.899 Other long term (current) drug therapy; R68.89 Other general symptoms and signs; Z79.01 Long term (current) use of anticoagulants
CPT/HCPCS: 36415; 70450; 80048; 80053; 82247; 82248; 82274; 82607; 82728; 82746; 82962; 83540; 83550; 83615; 83630; 83735; 84100; 84132; 85014; 85018; 85025; 85027; 85610; 85652; 85730; 86140; 86850; 86900; 86901; 86920; 86922; 87040; 87177; 87209; 87506; 92507; 94668; 96125; 97110; 97112; 97116; 97129; 97130; 97162; 97166; 97530; 97535; 97802; 97803; 99252; J7040; J7050; A4216; G0463; J7799

== ENCOUNTER → 2023-02-20 | Outpatient (CLI) | payer OTHER, SELFPAY ==
[2023-02-20 12:36] LABS: Hemoglobin 9.5 g/dL (13.0-16.5); Mean Corp Hgb Conc 31.7 g/dL (32-36); Mean Corpuscular Hgb 33.6 pg (27.0-32.0); Mean Platelet Vol. 9.6 fl (6.2-12.0); POSITIVE MORPHOLOGY YES; Platelet Count 344 K/mm3 (150-450); RBC Distribution Width SD 77.9 fl (35.1-43.9); Red Blood Count 2.83 M/mm3 (4.6-6.2); White Blood Count 6.1 K/mm3 (4.4-11.0)
[2023-02-20 12:42] LABS: Scan Indicated on CBC? Y/N YES- FLAGS NOTED
[2023-02-20 13:30] LABS: Anion Gap 2 (5-15); BUN 7 mg/dL (7-18); BUN/Creat Ratio 13.2 RATIO (10-20); Calcium,Total 8.5 mg/dL (8.5-10.1); Chloride 108 mmol/L (98-107); Creatinine, Serum 0.53 mg/dL (0.70-1.30); EST Glomerular Filtration Rate 166 mL/min (>60); Est Glom Filt Rate - Afr Amer 201 mL/min (>60); Glucose 188 mg/dL (74-106); Magnesium 1.7 mg/dL (1.6-2.6); Phosphorus 1.1 mg/dL (2.5-4.9); Potassium 3.9 mmol/L (3.5-5.1); Sodium Level 137 mmol/L (136-145)
== END | disposition home or self-care (01) ==
LOC: LAB 12:05
PROVIDERS: PCP Family Medicine; Referring Provider Internal Medicine; Visit Provider Internal Medicine
DX: E83.51 Hypocalcemia (principal); E86.0 Dehydration; D53.9 Nutritional anemia, unspecified; E83.39 Other disorders of phosphorus metabolism
CPT/HCPCS: 36415; 80048; 82040; 83735; 84100; 85027

== ENCOUNTER 2023-03-23 09:58 | Day surgery (SDC) | payer OTHER, SELFPAY ==
--- NOTE | 2023-03-23 | COLBX_PTH ---
PATIENT: SUSAN CAMARILLO LOC: EN U#:[id number] AGE/SX: 62/M ROOM: RE03/23/[address]: Dr. Tyron Nguyễn DO : 1960 BED: DIS: 03/23/2023 SPEC #: [id number] RECD: 03/23/23 13:14 STATUS: ERICKA JOAN #: [id number] ANGELIQUE: 03/23/23 00:[address]: Tyron Nguyễn DEPT: SURGICAL PATHOLOGY RECD BY: Shakir Reaves ENTERED: 03/23/23 14:06 SP TYPE: COLON BX OTHR DR: Dr. Gadiel Morris MD Tissues: A - Duodenum, NOS B - Gastric mucous membrane C - COLON BIOPSY D - Rectum, NOS Procedures: Surgery Specimen Level IV HEADER OPERATION: Colonoscopy with biopsies, EGD ([facility]) with biopsies PRE-OP DIAGNOSIS: Chronic diarrhea TISSUE SUBMITTED: A - Duodenum biopsy, B - Gastric antrum biopsy for H. pylori and path, C - Random colon biopsies, D - Rectum biopsies MICROSCOPIC DIAGNOSIS A. Duodenum, biopsy: Fragments of duodenal mucosa with acute and chronic inflammation and gastric metaplasia. B. Gastric antrum, biopsy: Mild acute and chronic gastritis. See comment. C. Colon, random biopsy: Diffuse acute colitis. See comment. D. Rectum, biopsy: Diffuse acute colitis. See comment. SJ:adilene 03/24/2023 COMMENT B. Immunohistochemistry ([id number]) supports the above diagnosis. C & D. Diffuse cryptitis and crypt abscesses are noted. Glandular distortion and granulomas are not seen. No evidence of dysplasia. Correlation with clinical, endoscopic findings and appropriate follow up are necessary. MICROSCOPIC DESCRIPTION Slides are reviewed. GROSS DESCRIPTION A - Received in fixative is one container labeled with the patient's name and designated duodenum biopsy. The specimen consists of multiple irregular fragments of light steele soft tissue that in aggregate measure 1.5 x 0.3 x 0.1 cm. The specimen is totally submitted in one cassette. B - Received in fixative is one container labeled with the patient's name and designated gastric antrum biopsy. The specimen consists of two irregular fragments of light steele soft tissue that in aggregate measure 0.6 x 0.3 x 0.1 cm. The specimen is totally submitted in one cassette. C - Received in fixative is one container labeled with the patient's name and designated random colon biopsy. The specimen consists of multiple irregular fragments of light steele soft tissue that in aggregate measure 1.8 x 0.6 x 0.1 cm. The specimen is totally submitted in one cassette. D - Received in fixative is one container labeled with the patient's name and designated rectum biopsy. The specimen consists of multiple irregular fragments of light steele soft tissue that in aggregate measure 0.6 x 0.3 x 0.1 cm. The specimen is totally submitted in one cassette. / SJ:rg 03/23/2023 TC:2 CPT: 37256 x4
[2023-03-23 10:19] VITALS: BP 136/90; PULSE 101; RESP 16; TEMP 36.2; O2SAT 96; BMI 26.4
[2023-03-23] MEDS: Lactated Ringers 1,000 ML 15 ML IV (10:26)
--- NOTE | 2023-03-23 10:41 | HP.PCM_ITS ---
History and Physical Date of Admission: 03/23/23 Chief Complaint: diarrhea Details: SUSAN CAMARILLO, is a 62 M who presents to the office today to establish with Gastroenterology for diarrhea, anemia. He is accompanied by his . He is referred by Dr Gaitan from rehab where he was admitted 01/31/23-02/17/23. He and his report he has had chronic diarrhea for more than 2 yrs. Reports he was hospitalized once at [facility] for dehydration due to diarrhea. He and his report he almost always has diarrhea. Stools tend to be watery, at times can be very soft. He reports a week of almost normal formed stools in rehab, then stools returned to being watery. BMs are urgent, has accidents. He does have nocturnal diarrhea. Occas associated cramping, but no pain usually. Can occur after meals but also at other times. No melena or hematochezia. If he takes 2 loperamide he gets brief relief of diarrhea. recalls he was prescri bed lomotil once, they don't recall if it was effective. Never on colestipol or cholestyramine. No cause found for his diarrhea, except once he might have had a bacterial infection. Also for years he gets infrequent random vomiting, occurs suddenly, not preceded by nausea or abd pain, typically bilious emesis, no hematemesis. He was in the rehab unit for debility following hospitalization for over a month at [facility] following treatment for multiple melanoma. Comorbidities also include DM2, HTN, heart disease, vascular disease. Stool was heme positive during rehab stay. Stool test positive for lactoferrin, neg for O&P/enteric pathogens/C diff. Hgb was 11 at rehab admission, then low of 7.3 on 02/17/23, then 9.5 on 02/20/23. Iron 64 (65-175), ferritin 255 on 02/14/23. ESR 23, CRP 14.9 on 02/07/23 Colonoscopy maybe 5 yrs ago ROS Const Constitutional: Positive for headache(s); No fatigue ENT ENT: Positive for headache(s); No difficulty swallowing Gastro GI: No abdominal pain, belching, bloating, change in bowel habits, change in stool character, coffee ground emesis, constipation, cramping, diarrhea, heartburn, difficulty swallowing, feeling full early, excessive flatus, incontinent of stools, Vomiting blood/hematemesis, Blood in stool, loose stools, Black,tarry stools, nausea/dyspepsia, pain with swallowing, vomiting or other Musc Musculoskeletal: Positive for abnormal gait, joint pain, back pain, muscle cramps, muscle weakness, stiffness and Arthritis Skin Skin: No yellowing of the eye or itchy eyes Neuro Neurology: Positive for abnormal gait, dizziness, headache(s) and tremor(s) Psych Psychiatric: No anxiety and No depression Endo Endocrine: No fatigue Aller/Imm Allergy/Immunologic: No itchy eyes Elio/Lymp Hematologic/Lymphatic: No easy bleeding or easy bruising Exam Const General: cooperative, comfortable and ill appearing chronically Orientation: alert, awake and oriented x3 Resp Effort & Inspection: normal respiratory effort GI Inspection: normal to inspection Skin General: no jaundice Other: pale Quality Reporting Tobacco Screening ([facility]) Smoking Status: Never smoker Assessment and Plan Assessment and Plan (1) Chronic diarrhea: Status: Chronic Plan: 62 yr old male with chronic diarrhea, positive stool hemoccult, anemia DDx for diarrhea includes microscopic colitis, IBD. Bile excess could contribute to his random vomiting and his diarrhea. IBD lab panel, celiac, stool calprotectin, giardia Schedule EGD and colonoscopy Rx colestipol 1-2 g mid-day, can continue to use loperamide Orders: Orders Miscellaneous Lab Procedure Today K52.9 - Noninfective gastroenteritis and colitis, unspecified Calprotectin, Stool Today K52.9 - Noninfective gastroenteritis and colitis, unspecified Celiac Disease Profile Today K52.9 - Noninfective gastroenteritis and colitis, unspecified Giardia Lamblia, Stool EIA Today K52.9 - Noninfective gastroenteritis and colitis, unspecified Medications: New colestipol 1-2 tablets orally daily; avoid other medication 1 hour before and 4 hours after colestipol 60 tabs 3RF diarrhea
--- NOTE | 2023-03-23 10:45 | IMM_PTH ---
PATIENT: SUSAN CAMARILLO LOC: EN U#:[id number] AGE/SX: 62/M ROOM: RE03/23/[address]: Dr. Tyron Nguyễn DO : 1960 BED: DIS: 03/23/2023 SPEC #: [id number] RECD: 03/23/23 14:24 STATUS: ERICKA REQ #: [id number] ANGELIQUE: 03/23/23 10:[address]: Tyron Nguyễn DEPT: IMMUNOHISTOCHEMISTRY RECD BY: Zora Temple ENTERED: 03/23/23 14:24 SP TYPE: IMMUNO OTHR DR: Dr. Gadiel Morris MD Tissues: B - Stomach, NOS Procedures: H Pylori (initial) PHYSICIAN & [place] [id number] SPECIMEN INFORMATION: Tissue Source: B - Gastric antrum Clinical Info: Chronic diarrhea Specimen Number: [id number] CPT code: 45019 METHODOLOGY: Deparaffinized sections of prefer/formalin-fixed tissue or PAP/DQ stained slides are incubated with monoclonal/polyclonal antibodies/oligonucleotide probes. Localization is made via biotin free immunoperoxidase method. Appropriate controls are performed and reacted as expected. Results on target cell population are indicated in the following table: RESULTS: ANTIBODY / CLONE RESULT Block B H Pylori (polyclonal) negative These tests were developed and their performance characteristics determined by [facility]. They may not have been cleared or approved by the U.S. Food and Drug Administration. The FDA has determined that such clearance or approval is not necessary. The above immunohistochemical/dualISH markers are ordered and reviewed by the Pathologist. INTERPRETATION: B. Gastric antrum, biopsy: Negative for Helicobacter pylori organisms. SJ:adilene 03/24/2023
[2023-03-23 11:18] VITALS: BP 100/63; BP 136/90; PULSE 105; RESP 18; TEMP 36.6; O2SAT 100
--- NOTE | 2023-03-23 11:21 | OP.EGD_ITS ---
Patient Name: Jad Frausto Procedure Date: 03/23/2023 10:45 AM Date of : 1960 Age: 62 Procedure: Upper GI endoscopy Indications: Iron deficiency anemia, Dyspepsia, Melena Providers: Tyron Nguyễn DO Medicines: Monitored Anesthesia Care Patient Profile: This is a 62 year old male. Refer to note in patient chart for documentation of history and physical. Patient has symptoms of chronic dyspepsia and chronic nausea. Complications: No immediate complications. Procedure: Pre-Anesthesia Assessment: - Prior to the procedure, a History and Physical was performed, and patient medications and allergies were reviewed. The patient is competent. The risks and benefits of the procedure and the sedation options and risks were discussed with the patient. All questions were answered and informed consent was obtained. Patient identification and proposed procedure were verified by the physician. Mental Status Examination: alert and oriented. Airway Examination: normal oropharyngeal airway and neck mobility. Respiratory Examination: clear to auscultation. CV Examination: normal. Prophylactic Antibiotics: The patient does not require prophylactic antibiotics. Prior Anticoagulants: The patient has taken no previous anticoagulant or antiplatelet agents. ASA Grade Assessment: II - A patient with mild systemic disease. After reviewing the risks and benefits, the patient was deemed in satisfactory condition to undergo the procedure. The anesthesia plan was to use monitored anesthesia care (MAC). Immediately prior to administration of medications, the patient was re-assessed for adequacy to receive sedatives. The heart rate, respiratory rate, oxygen saturations, blood pressure, adequacy of pulmonary ventilation, and response to care were monitored throughout the procedure. The physical status of the patient was re-assessed after the procedure. After obtaining informed consent, the endoscope was passed under direct vision. Throughout the procedure, the patient's blood pressure, pulse, and oxygen saturations were monitored continuously. The pediatric colonoscope was introduced through the mouth, and advanced to the second part of duodenum. The upper GI endoscopy was accomplished without difficulty. The patient tolerated the procedure well. Scope In: 10:54:58 AM Scope Out: 10:59:27 AM Total Procedure Duration Time 0 hours 4 minutes 29 seconds Findings: No gross lesions were noted in the entire esophagus. A medium-sized hiatal hernia was present. Patchy mildly erythematous mucosa without bleeding was found in the gastric body. Biopsies were taken with a cold forceps for histology. Verification of patient identification for the specimen was done. Estimated blood loss was minimal. Many non-bleeding linear duodenal ulcers with no stigmata of bleeding were found in the second portion of the duodenum. Biopsies were taken with a cold forceps for histology. Verification of patient identification for the specimen was done. Estimated blood loss was minimal. Impression: - No gross lesions in esophagus. - Medium-sized hiatal hernia. - Erythematous mucosa in the gastric body. Biopsied. - Multiple non-bleeding duodenal ulcers with no stigmata of bleeding. Biopsied. Recommendation: - Discharge patient to home. - Resume previous diet. - Continue present medications. - Await pathology results. Procedure Code(s): --- Professional --- 86049, Esophagogastroduodenoscopy, flexible, transoral; with biopsy, single or multiple CPT copyright 2017 [employer]. All rights reserved. The codes documented in this report are preliminary and upon police superintendent review may be revised to meet current compliance requirements. Tyron Nguyễn DO 03/23/2023 11:20:53 AM This report has been signed electronically. Number of Addenda: 0 Note Initiated On: 03/23/2023 10:45 AM
--- NOTE | 2023-03-23 11:21 | OP.CCLET_ITS ---
03/23/2023 Gadiel Morris Re : Upper GI endoscopy procedure for Jad Frausto Matias Morris This procedure was performed on March. My impressions and recommendations are as follows: Impressions : - No gross lesions in esophagus. - Medium-sized hiatal hernia. - Erythematous mucosa in the gastric body. Biopsied. - Multiple non-bleeding duodenal ulcers with no stigmata of bleeding. Biopsied. Recommendations : - Discharge patient to home. - Resume previous diet. - Continue present medications. - Await pathology results. My findings are described in the full procedure note, which is enclosed. If I can be of further assistance, please feel free to contact me at . Sincerely, Tyron Nguyễn, 03/23/2023 11:20:53 AM This report has been signed electronically.
--- NOTE | 2023-03-23 11:24 | OP.CCLET_ITS ---
03/23/2023 Gadiel Morris Re : Colonoscopy procedure for Jad Salcedo Arturo This procedure was performed on March. My impressions and recommendations are as follows: Impressions : - Preparation of the colon was poor. - Diverticulosis in the recto-sigmoid colon, in the sigmoid colon and in the descending colon. - Friability with no bleeding in the rectum, in the sigmoid colon, in the descending colon, at the splenic flexure, in the transverse colon and in the ascending colon. Biopsied. Recommendations : - Discharge patient to home. - Resume previous diet. - Continue present medications. - Await pathology results. - Repeat colonoscopy in 4 months because the bowel preparation was poor. My findings are described in the full procedure note, which is enclosed. If I can be of further assistance, please feel free to contact me at . Sincerely, Tyron Nguyễn, 03/23/2023 11:24:35 AM This report has been signed electronically.
--- NOTE | 2023-03-23 11:24 | OP.COLON_ITS ---
Patient Name: Jad Frausto Procedure Date: 03/23/2023 10:59 AM Date of : 1960 Age: 62 Procedure: Colonoscopy Indications: Chronic diarrhea, Melena, Iron deficiency anemia Providers: Tyron Nguyễn DO Medicines: Monitored Anesthesia Care Patient Profile: This is a 62 year old male. Refer to note in patient chart for documentation of history and physical. Patient has symptoms of chronic dyspepsia and chronic nausea. Last Colonoscopy: date unknown. Unable to locate last colonoscopy report. Complications: No immediate complications. Procedure: Pre-Anesthesia Assessment: - Prior to the procedure, a History and Physical was performed, and patient medications and allergies were reviewed. The patient is competent. The risks and benefits of the procedure and the sedation options and risks were discussed with the patient. All questions were answered and informed consent was obtained. Patient identification and proposed procedure were verified by the physician. Mental Status Examination: alert and oriented. Airway Examination: normal oropharyngeal airway and neck mobility. Respiratory Examination: clear to auscultation. CV Examination: normal. Prophylactic Antibiotics: The patient does not require prophylactic antibiotics. Prior Anticoagulants: The patient has taken no previous anticoagulant or antiplatelet agents. ASA Grade Assessment: II - A patient with mild systemic disease. After reviewing the risks and benefits, the patient was deemed in satisfactory condition to undergo the procedure. The anesthesia plan was to use monitored anesthesia care (MAC). Immediately prior to administration of medications, the patient was re-assessed for adequacy to receive sedatives. The heart rate, respiratory rate, oxygen saturations, blood pressure, adequacy of pulmonary ventilation, and response to care were monitored throughout the procedure. The physical status of the patient was re-assessed after the procedure. After I obtained informed consent, the scope was passed under direct vision. Throughout the procedure, the patient's blood pressure, pulse, and oxygen saturations were monitored continuously. The pediatric colonoscope was introduced through the anus and advanced to the cecum, identified by appendiceal orifice and ileocecal valve. The colonoscopy was performed without difficulty. The patient tolerated the procedure well. The quality of the bowel preparation was poor. Scope In: 11:00:54 AM Scope Withdrawal Time 0 hours 5 minutes 28 seconds Scope Out: 11:12:09 AM Total Procedure Duration Time 0 hours 11 minutes 15 seconds Findings: The perianal and digital rectal examinations were normal. A few medium-mouthed diverticula were found in the recto-sigmoid colon, sigmoid colon and descending colon. A localized area of moderately friable mucosa with no bleeding was found in the rectum, in the sigmoid colon, in the descending colon, at the splenic flexure, in the transverse colon and in the ascending colon. Biopsies were taken with a cold forceps for histology. Verification of patient identification for the specimen was done. Estimated blood loss was minimal. Impression: - Preparation of the colon was poor. - Diverticulosis in the recto-sigmoid colon, in the sigmoid colon and in the descending colon. - Friability with no bleeding in the rectum, in the sigmoid colon, in the descending colon, at the splenic flexure, in the transverse colon and in the ascending colon. Biopsied. Recommendation: - Discharge patient to home. - Resume previous diet. - Continue present medications. - Await pathology results. - Repeat colonoscopy in 4 months because the bowel preparation was poor. Procedure Code(s): --- Professional --- 46711, Colonoscopy, flexible; with biopsy, single or multiple CPT copyright 2017 [employer]. All rights reserved. The codes documented in this report are preliminary and upon nitro man review may be revised to meet current compliance requirements. Tyron Nguyễn DO 03/23/2023 11:24:35 AM This report has been signed electronically. Number of Addenda: 0 Note Initiated On: 03/23/2023 10:59 AM
[2023-03-23 11:26] VITALS: BP 136/90; BP 96/83; PULSE 104; RESP 16; O2SAT 99
[2023-03-23 11:30] VITALS: BP 136/90; BP 92/61; PULSE 101; RESP 16; O2SAT 96
[2023-03-23 11:36] VITALS: BP 107/71; BP 136/90; PULSE 100; RESP 16; TEMP 36.5; O2SAT 97
[2023-03-23 12:01] VITALS: BP 136/90
== END 2023-03-23 12:40 | disposition home or self-care (01) ==
LOC: EN 10:01 → AC 10:03
PROVIDERS: PCP Family Medicine; Referring Provider Family Medicine; Visit Provider Internal Medicine Gastroenterology
PROC: 0DJD8ZZ Inspection of Lower Intestinal Tract, Via Natural or Artificial Opening Endoscopic (ICD-10-PCS; CPT 45378; principal; 2023-03-23 10:40)
DX: K29.50 Unspecified chronic gastritis without bleeding (principal); E11.9 Type 2 diabetes mellitus without complications; K57.30 Diverticulosis of large intestine without perforation or abscess without bleeding; I10 Essential (primary) hypertension; K26.9 Duodenal ulcer, unspecified as acute or chronic, without hemorrhage or perforation; K44.9 Diaphragmatic hernia without obstruction or gangrene; D50.9 Iron deficiency anemia, unspecified
CPT/HCPCS: 45380; 43239; 88305; 88342; J7120; J2405

== ENCOUNTER → 2023-04-11 | Outpatient (CLI) | payer OTHER, SELFPAY ==
[2023-04-12 21:12] LABS: Calprotectin, Stool 353 ug/g (0-120)
== END | disposition home or self-care (01) ==
PROVIDERS: PCP Family Medicine; Referring Provider Internal Medicine Gastroenterology; Visit Provider Internal Medicine Gastroenterology
DX: K52.9 Noninfective gastroenteritis and colitis, unspecified (principal)
CPT/HCPCS: 83630; 83993

== ENCOUNTER → 2023-04-18 | Outpatient (CLI) | payer OTHER, SELFPAY ==
[2023-04-18 15:55] LABS: Absolute Lymphocyte Count 0.71 X10^3/uL (0.83-4.51); Absolute Neutrophil Count 6.4 X10^3/uL (2.0-7.7); Basophil# 0.12 X10^3/uL; Basophil% 1.4 % (0-1); Eosinophils% 1.2 % (0-5); Hematocrit 35.7 % (40-54); Hemoglobin 11.6 g/dL (13.0-16.5); Lymphocyte # 0.71 X10^3/ul (0.83-4.51); Lymphocyte % 8.3 % (19-41); Mean Corp Hgb Conc 32.5 g/dL (32-36); Mean Corpuscular Hgb 29.7 pg (27.0-32.0); Mean Corpuscular Volume 91.5 fL (80-94); Mean Platelet Vol. 10.5 fl (6.2-12.0); Monocyte# 1.17 X10^3/uL; Monocyte% 13.7 % (0-10); NRBC Flagged by Analyzer 0 % (0-5); Neutrophil # 6.38 X10^3/uL (2.7-7.7); Neutrophil % 74.3 % (47-70); Platelet Count 346 K/mm3 (150-450); RBC Distribution Width CV 15.8 % (11.6-14.6); RBC Distribution Width SD 51.4 fl (35.1-43.9); White Blood Count 8.6 K/mm3 (4.4-11.0)
[2023-04-18 16:04] LABS: Erythrocyte Sedimentation Rate 8 mm/hr (0-20)
[2023-04-18 16:53] LABS: ALB/GLOB Ratio 1.2 RATIO (0.9-2.4); AST(SGOT) 21 U/L (15-37); Alanine Aminotransfer ALT/SGPT 22 U/L (16-61); Albumin, Serum 3.6 g/dL (3.2-5.0); Alkaline Phosphatase 96 U/L (45-117); Anion Gap 5 (5-15); BUN 11 mg/dL (7-18); BUN/Creat Ratio 13.5 RATIO (10-20); CRP 7.07 mg/L (0.0-3.0); Calcium,Total 8.7 mg/dL (8.5-10.1); Chloride 104 mmol/L (98-107); Creatinine, Serum 0.81 mg/dL (0.70-1.30); EST Glomerular Filtration Rate 101 mL/min (>60); Est Glom Filt Rate - Afr Amer 122 mL/min (>60); Globulin 2.9 g/dL (2.2-4.2); Glucose 177 mg/dL (74-106); LDH 347 U/L (87-241); Potassium 2.9 mmol/L (3.5-5.1); Protein, Total 6.5 g/dL (6.4-8.2); Sodium Level 139 mmol/L (136-145)
[2023-04-20 16:10] LABS: Anti-Centromere B Ab <0.2 AI (0.0-0.9); Anti-Chromatin <0.2 AI (0.0-0.9); Anti-Jo <0.2 AI (0.0-0.9); Anti-Scleroderma-70 AB <0.2 AI (0.0-0.9); Anti-dsDNA Ab <1 IU/mL (0-9); RNP Ab <0.2 AI (0.0-0.9); SJOGREN'S Anti-SS-A test < 0.2 AI (0.0-0.9); SJOGREN'S Anti-SS-B test < 0.2 AI (0.0-0.9); Smith Ab <0.2 AI (0.0-0.9)
[2023-04-24 08:07] LABS: Albumin 3.4 g/dL (2.9-4.4); Alpha-1-Globulins 0.3 g/dL (0.0-0.4); Alpha-2-Globulins 0.9 g/dL (0.4-1.0); Cytoplasmic Ab (C-ANCA) <1:20 titer (Neg:<1:20); Endomysial Antibody IgA Negative (Negative); Gamma Globulin 0.2 g/dL (0.4-1.8); Immunoglobulin A < 5 mg/dL (61-437); Immunoglobulin E < 2 IU/mL (6-495); Immunoglobulin G 182 mg/dL (603-1613); Immunoglobulin M < 5 mg/dL (20-172); PROEL- TOTAL PROTEIN 5.7 g/dL (6.0-8.5); Perinuclear Ab (P-ANCA) <1:20 titer (Neg:<1:20); t-Transglutaminase IgA <2 U/mL (0-3)
== END | disposition home or self-care (01) ==
PROVIDERS: PCP Family Medicine; Referring Provider Internal Medicine Gastroenterology; Visit Provider Internal Medicine Gastroenterology
DX: K52.9 Noninfective gastroenteritis and colitis, unspecified (principal)
CPT/HCPCS: 36415; 80053; 82784; 82785; 83516; 83615; 84165; 85025; 85652; 86140; 86225; 86235; 86255; 86256; 86334

== ENCOUNTER 2023-08-02 05:37 | Day surgery (SDC) | payer OTHER, SELFPAY ==
--- NOTE | 2023-08-01 | COLBX_PTH ---
PATIENT: SUSAN CAMARILLO LOC: EN U#:[id number] AGE/SX: 63/M ROOM: RE08/02/[address]: Dr. Tyron Nguyễn DO : 1960 BED: DIS: 08/02/2023 SPEC #: [id number] RECD: 08/02/23 11:38 STATUS: ERICKA JOAN #: [id number] ANGELIQUE: 08/01/23 00:[address]: Tyron Nguyễn DEPT: SURGICAL PATHOLOGY RECD BY: Shante Alberto ENTERED: 08/02/23 11:38 SP TYPE: COLON BX OTHR DR: Dr. Gadiel Morris MD Tissues: A - Ileum, NOS B - COLON BIOPSY Procedures: Surgery Specimen Level IV HEADER OPERATION: Colonoscopy, biopsy PRE-OP DIAGNOSIS: Chronic diarrhea TISSUE SUBMITTED: A - Terminal ileum biopsy, B - Random colonic biopsy MICROSCOPIC DIAGNOSIS A. Terminal ileum, biopsy: No pathologic change. B. Colon, random biopsy: No pathologic change. AM:adilene 08/03/2023 MICROSCOPIC DESCRIPTION Slides are reviewed. GROSS DESCRIPTION A - Received in fixative is one container labeled with the patient's name and designated terminal ileum. The specimen consists of two irregular fragments of light steeel soft tissue that in aggregate measure 0.6 x 0.2 x 0.1 cm. The specimen is totally submitted in one cassette. B - Received in fixative is one container labeled with the patient's name and designated random colon biopsy. The specimen consists of multiple irregular fragments of light steele soft tissue that in aggregate measure 2.0 x 0.8 x 0.1 cm. The specimen is totally submitted in one cassette. / AM:adilene 08/02/2023 TC:5 CPT: 31564 x2
[2023-08-02 06:03] VITALS: BP 158/87; PULSE 69; RESP 18; TEMP 36; O2SAT 100; BMI 28.4
--- NOTE | 2023-08-02 06:34 | PCM.HP.BLA ---
History and Physical Date of Admission: 08/02/23 62 M who presents to the office today to establish with Gastroenterology for diarrhea, anemia. He is accompanied by his . He is referred by Dr Gaitan from rehab where he was admitted 01/31/23-02/17/23. He and his report he has had chronic diarrhea for more than 2 yrs. Reports he was hospitalized once at [facility] for dehydration due to diarrhea. He and his report he almost always has diarrhea. Stools tend to be watery, at times can be very soft. He reports a week of almost normal formed stools in rehab, then stools returned to being watery. BMs are urgent, has accidents. He does have nocturnal diarrhea. Occas associated cramping, but no pain usually. Can occur after meals but also at other times. No melena or hematochezia. If he takes 2 loperamide he gets brief relief of diarrhea. recalls he was prescribed lomotil once, they don't recall if it was effective. Never on colestipol or cholestyramine. No cause found for his diarrhea, except once he might have had a bacterial infection. Also for years he gets infrequent random vomiting, occurs suddenly, not preceded by nausea or abd pain, typically bilious emesis, no hematemesis. He was in the rehab unit for debility following hospitalization for over a month at [facility] following treatment for multiple melanoma. Comorbidities also include DM2, HTN, heart disease, vascular disease. Stool was heme positive during rehab stay. Stool test positive for lactoferrin, neg for O&P/enteric pathogens/C diff. Hgb was 11 at rehab admission, then low of 7.3 on 02/17/23, then 9.5 on 02/20/23. Iron 64 (65-175), ferritin 255 on 02/14/23. ESR 23, CRP 14.9 on 02/07/23 Colonoscopy maybe 5 yrs ago ROS Const Constitutional: Positive for headache(s); No fatigue ENT ENT: Positive for headache(s); No difficulty swallowing Gastro GI: No abdominal pain, belching, bloating, change in bowel habits, change in stool character, coffee ground emesis, constipation, cramping, diarrhea, heartburn, difficulty swallowing, feeling full early, excessive flatus, incontinent of stools, Vomiting blood/hematemesis, Blood in stool, loose stools, Black,tarry stools, nausea/dyspepsia, pain with swallowing, vomiting or other Musc Musculoskeletal: Positive for abnormal gait, joint pain, back pain, muscle cramps, muscle weakness, stiffness and Arthritis Skin Skin: No yellowing of the eye or itchy eyes Neuro Neurology: Positive for abnormal gait, dizziness, headache(s) and tremor(s) Psych Psychiatric: No anxiety and No depression Endo Endocrine: No fatigue Aller/Imm Allergy/Immunologic: No itchy eyes Elio/Lymp Hematologic/Lymphatic: No easy bleeding or easy bruising Exam Const General: cooperative, comfortable and ill appearing chronically Orientation: alert, awake and oriented x3 Resp Effort & Inspection: normal respiratory effort GI Inspection: normal to inspection Skin General: no jaundice Other: pale Quality Reporting Tobacco Screening ([facility]) Smoking Status: Never smoker Assessment and Plan Assessment and Plan (1) Chronic diarrhea: Status: Chronic Plan: 62 yr old male with chronic diarrhea, positive stool hemoccult, anemia DDx for diarrhea includes microscopic colitis, IBD. Bile excess could contribute to his random vomiting and his diarrhea. IBD lab panel, celiac, stool calprotectin, giardia Schedule EGD and colonoscopy Rx colestipol 1-2 g mid-day, can continue to use loperamide Orders: Orders I have examined the patient and the H&P has been reviewed. There are no clinical changes since date of exam.
[2023-08-02 06:35] LABS: Bedside Glucose 135 mg/dL (74-106)
--- NOTE | 2023-08-02 07:04 | OP.CCLET_ITS ---
08/02/2023 Gadiel Morris Re : Colonoscopy procedure for Jad Frausto Matias Morris This procedure was performed on Wednesday, August 02, 2023. My impressions and recommendations are as follows: Impressions : - Preparation of the colon was fair. - Congested mucosa in the recto-sigmoid colon, in the sigmoid colon, in the transverse colon and in the ascending colon. Biopsied. - The examined portion of the ileum was normal. Biopsied. - Diverticulosis in the recto-sigmoid colon and in the sigmoid colon. Recommendations : - Discharge patient to home. - Resume previous diet. - Continue present medications. - Await pathology results. - Repeat colonoscopy in 5 years for surveillance. My findings are described in the full procedure note, which is enclosed. If I can be of further assistance, please feel free to contact me at . Sincerely, Tyron Nguyễn, 08/02/2023 7:03:39 AM This report has been signed electronically.
--- NOTE | 2023-08-02 07:04 | OP.COLON_ITS ---
Patient Name: Jad Frausto Procedure Date: 08/02/2023 6:23 AM Date of : 1960 Age: 63 Procedure: Colonoscopy Indications: Chronic diarrhea Providers: Tyron Nguyễn DO Medicines: Monitored Anesthesia Care Patient Profile: This is a 63 year old male. Refer to note in patient chart for documentation of history and physical. Last Colonoscopy: within the past 6 months. Complications: No immediate complications. Procedure: Pre-Anesthesia Assessment: - Prior to the procedure, a History and Physical was performed, and patient medications and allergies were reviewed. The risks and benefits of the procedure and the sedation options and risks were discussed with the patient. All questions were answered and informed consent was obtained. Patient identification and proposed procedure were verified by the physician in the pre-procedure area. Mental Status Examination: normal. Respiratory Examination: clear to auscultation. CV Examination: normal. Prophylactic Antibiotics: The patient does not require prophylactic antibiotics. Prior Anticoagulants: The patient has taken no anticoagulant or antiplatelet agents. ASA Grade Assessment: III - A patient with severe systemic disease. After reviewing the risks and benefits, the patient was deemed in satisfactory condition to undergo the procedure. The anesthesia plan was to use monitored anesthesia care (MAC). Immediately prior to administration of medications, the patient was re-assessed for adequacy to receive sedatives. The heart rate, respiratory rate, oxygen saturations, blood pressure, adequacy of pulmonary ventilation, and response to care were monitored throughout the procedure. The physical status of the patient was re-assessed after the procedure. After I obtained informed consent, the scope was passed under direct vision. Throughout the procedure, the patient's blood pressure, pulse, and oxygen saturations were monitored continuously. The Colonoscope was introduced through the anus and advanced to the terminal ileum. The colonoscopy was performed without difficulty. The patient tolerated the procedure well. The quality of the bowel preparation was fair. The terminal ileum, ileocecal valve, appendiceal orifice, and rectum were photographed. Scope In: 6:40:31 AM Scope Withdrawal Time 0 hours 13 minutes 13 seconds Scope Out: 6:58:08 AM Total Procedure Duration Time 0 hours 17 minutes 37 seconds Findings: The perianal and digital rectal examinations were normal. An area of mildly congested mucosa was found in the recto-sigmoid colon, in the sigmoid colon, in the transverse colon and in the ascending colon. Biopsies were taken with a cold forceps for histology. Verification of patient identification for the specimen was done. Estimated blood loss was minimal. The terminal ileum appeared normal. Biopsies were taken with a cold forceps for histology. Verification of patient identification for the specimen was done. Estimated blood loss was minimal. Many small and large-mouthed diverticula were found in the recto-sigmoid colon and sigmoid colon. Impression: - Preparation of the colon was fair. - Congested mucosa in the recto-sigmoid colon, in the sigmoid colon, in the transverse colon and in the ascending colon. Biopsied. - The examined portion of the ileum was normal. Biopsied. - Diverticulosis in the recto-sigmoid colon and in the sigmoid colon. Recommendation: - Discharge patient to home. - Resume previous diet. - Continue present medications. - Await pathology results. - Repeat colonoscopy in 5 years for surveillance. Procedure Code(s): --- Professional --- 91577, Colonoscopy, flexible; with biopsy, single or multiple CPT copyright 2021 [employer]. All rights reserved. The codes documented in this report are preliminary and upon senior mortgage loan processor review may be revised to meet current compliance requirements. Tyron Nguyễn DO 08/02/2023 7:03:39 AM This report has been signed electronically. Number of Addenda: 0 Note Initiated On: 08/02/2023 6:23 AM
[2023-08-02 07:05] VITALS: BP 130/79; BP 158/87; PULSE 69; RESP 18; TEMP 36.8; O2SAT 100
[2023-08-02 07:10] VITALS: BP 127/70; BP 158/87; PULSE 68; RESP 18; O2SAT 98
[2023-08-02] MEDS: Lactated Ringers 1,000 ML 15 ML IV (07:12)
[2023-08-02 07:14] VITALS: BP 123/67; BP 158/87; PULSE 62; RESP 18; O2SAT 99
[2023-08-02 07:19] VITALS: BP 123/67; BP 158/87; PULSE 64; RESP 18; TEMP 37.2; O2SAT 100
[2023-08-02 07:44] VITALS: BP 158/87
== END 2023-08-02 08:03 | disposition home or self-care (01) ==
LOC: EN 05:38 → AC 05:39
PROVIDERS: PCP Family Medicine; Referring Provider Family Medicine; Visit Provider Internal Medicine Gastroenterology
PROC: 0DJD8ZZ Inspection of Lower Intestinal Tract, Via Natural or Artificial Opening Endoscopic (ICD-10-PCS; CPT 45378; principal; 2023-08-02 06:25)
DX: K52.9 Noninfective gastroenteritis and colitis, unspecified (principal); Z79.4 Long term (current) use of insulin; K57.30 Diverticulosis of large intestine without perforation or abscess without bleeding; Z79.899 Other long term (current) drug therapy; Z87.19 Personal history of other diseases of the digestive system
CPT/HCPCS: 45380; 82962; 88305; J7120; J2405

== ENCOUNTER → 2023-08-18 | Outpatient (CLI) | payer OTHER, SELFPAY ==
[2023-08-18 17:08] LABS: Absolute Lymphocyte Count 0.29 X10^3/uL (0.83-4.51); Absolute Neutrophil Count 3.6 X10^3/uL (2.0-7.7); Basophil# 0.04 X10^3/uL; Basophil% 0.8 % (0-1); Eosinophil# 0.09 X10^3/uL; Eosinophils% 1.8 % (0-5); Lymphocyte # 0.29 X10^3/ul (0.83-4.51); Lymphocyte % 5.8 % (19-41); Mean Corp Hgb Conc 33.3 g/dL (32-36); Mean Corpuscular Hgb 32.2 pg (27.0-32.0); Mean Corpuscular Volume 96.5 fL (80-94); Mean Platelet Vol. 10.6 fl (6.2-12.0); Monocyte# 0.78 X10^3/uL; Monocyte% 15.6 % (0-10); NRBC Flagged by Analyzer 0 % (0-5); Neutrophil # 3.62 X10^3/uL (2.7-7.7); Neutrophil % 72.2 % (47-70); POSITIVE DIFFERENTIAL YES; Platelet Count 191 K/mm3 (150-450); RBC Distribution Width CV 15.4 % (11.6-14.6); RBC Distribution Width SD 55.3 fl (35.1-43.9); Red Blood Count 3.73 M/mm3 (4.6-6.2)
[2023-08-18 17:19] LABS: AST(SGOT) 85 U/L (15-37); Alanine Aminotransfer ALT/SGPT 162 U/L (16-61); Albumin, Serum 3.2 g/dL (3.2-5.0); Alkaline Phosphatase 255 U/L (45-117); Anion Gap 5 (5-15); BUN 13 mg/dL (7-18); BUN/Creat Ratio 16.5 RATIO (10-20); Calcium,Total 8.7 mg/dL (8.5-10.1); Chloride 103 mmol/L (98-107); Creatinine, Serum 0.79 mg/dL (0.70-1.30); EST Glomerular Filtration Rate 105 mL/min (>60); Est Glom Filt Rate - Afr Amer 127 mL/min (>60); Globulin 3.1 g/dL (2.2-4.2); Glucose 163 mg/dL (74-106); Protein, Total 6.3 g/dL (6.4-8.2); Sodium Level 138 mmol/L (136-145)
[2023-08-18 17:24] LABS: Differential Indicated SCAN CRITERIA MET
[2023-08-18 17:32] LABS: Anisocytosis RARE; Macrocytosis RARE; Platelet Estimate ADEQUATE (ADEQ); Red Cell Morphology N CHROM NORMAL (NORM C&C)
== END | disposition home or self-care (01) ==
LOC: LABSPEC 16:53
PROVIDERS: PCP Family Medicine; Referring Provider Family Medicine; Visit Provider Family Medicine
DX: R79.89 Other specified abnormal findings of blood chemistry (principal)
CPT/HCPCS: 80053; 85025

== ENCOUNTER 2023-08-31 10:40 | Emergency (ER) | payer OTHER, SELFPAY ==
[2023-08-31 10:40] VITALS: BP 170/97; PULSE 65; RESP 18; TEMP 37.2; O2SAT 95
--- NOTE | 2023-08-31 11:10 | EKG12_ITS ---
Test Reason : CONFUSION Blood Pressure : / mmHG Vent. Rate : 120 BPM Atrial Rate : 120 BPM P-R Int : 144 ms QRS Dur : 152 ms QT Int : 366 ms P-R-T Axes : 005 031 -03 degrees QTc Int : 517 ms Sinus tachycardia Right bundle branch block T wave abnormality, consider inferior ischemia Abnormal ECG Confirmed by CK THOMPSON, JAMES ([id number]), city editor LOPEZ MUNOZ ([id number]) on 09/04/2023 2:00:13 P M Referred By: ANNETTE Confirmed By:JERRY STOVER MD
--- NOTE | 2023-08-31 11:11 | EX.ED.DYSGE1 ---
HPI History of Present Illness Chief Complaint: Weakness Informant: patient and spouse/S.O. Onset/Context/Timing Onset: Days Context: Gradual Onset Timing: Continuous Current Severity: Mild Maximum Severity: Moderate Narrative Narrative: [id number] male his with multiple myeloma, prior intracranial bleed, A-fib no longer on blood thinners, anemia and diabetes. He has had increasing weakness over the last several days some intermittent nausea and vomiting. Today he had a liver scan done and was sent to the emergency department. Denies dysuria. He has had a mild cough. Denies fever. Prior similar symptoms: Yes Recent Illness/Hospitalization: No PFSH PFS Medical History Anemia Arthritis Back problem Cancer Cardiology follow-up encounter Chronic cough Coronary artery disease Depression Fatty liver Generalized weakness GERD (gastroesophageal reflux disease) Heart failure with reduced ejection fraction History of atrial fibrillation History of CHF (congestive heart failure) History of echocardiogram History of stress test History of ulceration Hyperlipidemia Hypertension Insulin dependent diabetes mellitus Loss of hearing Low iron MRSA infection Non-smoker Pneumonia Rib fracture Seizures Stroke/cerebrovascular accident Subarachnoid hematoma Subdural hematoma Type 2 diabetes mellitus Vascular disease Wears partial dentures Home Medications acyclovir 400 mg tablet 400 mg PO BID Check with primary doctor 07/24/18 [History Last Taken Unknown] carvedilol 6.25 mg tablet 6.25 mg PO BID HEART 01/31/23 [History Last Taken Unknown] loperamide 2 mg capsule 2 mg PO Q6H PRN Diarrhea 01/31/23 [History Last Taken Unknown] melatonin 5 mg tablet 6 mg PO QHS PRN SLEEP AID 01/31/23 [History Last Taken Unknown] tamsulosin 0.4 mg capsule (Flomax) 0.4 mg PO QHS RETENTION 01/31/23 [History Last Taken Unknown] acetaminophen 325 mg tablet 650 mg (2 x 325 mg) PO Q4H PRN PRN Pain/fever #0 tabs 02/17/23 [Rx Last Taken Unknown] duloxetine 60 mg capsule,delayed release 60 mg PO DAILY #30 caps 02/17/23 [Rx Last Taken Unknown] insulin aspart U-100 100 unit/mL (3 mL) subcutaneous pen 20 unit (0.2 mL) subcut TID #18 mL 02/17/23 [Rx Last Taken Unknown] losartan 50 mg tablet 50 mg PO DAILY #30 tabs 02/17/23 [Rx Last Taken Unknown] magnesium chloride 64 mg (magnesium chloride) tablet,delayed release (Mag 64) 128 mg (2 x 64 mg) PO DAILY #30 tabs 02/17/23 [Rx Last Taken Unknown] potassium chloride 20 mEq tablet,extended release 20 meq PO BID 03/22/23 [History Last Taken Unknown] calcium carbonate 500 mg calcium (1,250 mg) tablet (Oyster Shell Calcium) 500 mg PO DAILY 06/26/23 [History Last Taken Unknown] atorvastatin 80 mg tablet 40 mg PO QHS 07/31/23 [History Last Taken Unknown] budesonide 3 mg capsule,delayed,extended release 3 mg PO DAILY 07/31/23 [History Last Taken Unknown] cetirizine 10 mg capsule (Zyrtec) 10 mg PO DAILY PRN allergy symptoms 07/31/23 [History Last Taken Unknown] furosemide 40 mg tablet 40 mg PO Q8H PRN weight gain 07/31/23 [History Last Taken Unknown] hydralazine 25 mg tablet 25 mg PO BID 07/31/23 [History Last Taken Unknown] insulin glargine U-300 conc 300 unit/mL (3 mL) subcutaneous pen (Toujeo Max U-300 SoloStar) 35 unit subcut QHS 07/31/23 [History Last Taken Unknown] mesalamine 1,000 mg rectal suppository 1 g [place] QHS 07/31/23 [History Last Taken Unknown] ondansetron HCl 8 mg tablet 8 mg PO Q12H PRN nausea and vomiting 07/31/23 [History Last Taken Unknown] azithromycin 250 mg tablet (Zithromax) 250 mg PO DAILY 4 days #4 tabs 08/31/23 [Rx Last Taken Unknown] ondansetron 4 mg disintegrating tablet 4 mg PO Q6H PRN nausea and vomiting #7 tabs 08/31/23 [Rx Last Taken Unknown] Allergy/AdvReac Type Severity Reaction Status Date / Time bupropion [From Wellbutrin] Allergy Unknown Unknown Verified 08/31/23 10:40 Corticosteroids AdvReac will Verified 08/31/23 10:40 (Glucocorticoids) suppress cells d/t CAR-T therapy Family History Father Cancer Grandmother Diabetes Grandfather Heart disease Mother Hypertension Surgical History History of bone marrow biopsy History of cardiac catheterization History of esophagogastroduodenoscopy (EGD) History of heart artery stent History of hernia repair Social History adopted: No household members: spouse housing: house number of children: 3 current occupational status: other current occupation: self employed current occupational exposures/hazards: No pets and animals: Yes (7 horses, 2 dogs) leisure activities: games Smoking Status: Never smoker Smokeless tobacco user: snuff alcohol intake: never substance use type: does not use ROS ROS ED ROS Narrative Generalized weakness. Nausea and vomiting. Chronic diarrhea. Review of Systems ROS Unobtainable: Denies due to encephalopathy Constitutional Constitutional ED: Denies chills or fever(s) Eyes Eyes: Denies blurry vision ENT ENT ED: Denies ear pain Cardiovascular Cardiovascular: Denies chest pain Respiratory/Chest Respiratory/Chest: Reports cough; Denies dyspnea Gastrointestinal Gastrointestinal: Reports diarrhea, nausea, vomiting and other; Denies abdominal pain, constipation or melena Genitourinary Genitourinary ED: Denies dysuria or hematuria Musculoskeletal Musculoskeletal: Denies arthralgias Integumentary Denies abscess Neurologic Neurologic: Denies headache(s) Psychiatric Psychiatric: Denies anxiety Endocrine Endocrinology: Denies cold intolerance Hematologic/Lymphatic Hematologic/Lymphatic: Reports anemia Allergic/Immunologic Allergic/Immunologic ED: Denies mouth swelling, tongue swelling or urticaria EXAM Physical Exam Narrative Exam Narrative: 63-year-old male. Vital signs stable and afebrile. Pulse ox 95% on room air no hypoxia. Family present in room. HEENT exam unremarkable. Neck nontender. Lungs clear to auscultation. Heart regular rhythm no murmur. Rate about 65. Chest wall and ribs nontender. Abdomen soft nontender. Back nontender. Moving all 4 extremities. Nontender no deformity. Normal learning support specialist strength. Neurologically is awake and alert. He is answering questions and following commands. He knows where he is at, month and year. Const Vital Signs: 08/31/23 10:40 08/31/23 10:40 08/31/23 11:10 Temperature 99 F 99 F Temperature Source Temporal Temporal Pulse Rate 65 65 Respiratory Rate 18 18 Respiratory Effort Normal Respiratory Pattern Normal Blood Pressure 170/97 H 170/97 H Blood Pressure Mean 121 121 Pulse Ox 95 95 Oxygen Delivery Method Room Air Room Air 08/31/23 13:01 08/31/23 14:02 Temperature 99.6 F H Temperature Source Oral Pulse Rate 79 Respiratory Rate 16 Respiratory Effort Respiratory Pattern Blood Pressure 139/88 H Blood Pressure Mean 105 Pulse Ox 95 Oxygen Delivery Method Room Air Positive well nourished and well developed; Negative for cachectic, contractures or unkempt General Appearance ED: well developed and NAD; Negative for unkempt, cachectic, contractures, cyanotic, diaphoretic or pallor Nutritional Appearance: Negative for cachectic HEENT Reports moist mucous membranes Negative for trauma or tenderness Eyes PERRL and EOMs intact bilaterally General Eye ED: Negative for pale conjunctiva, scleral icterus or other Neck no lymphadenopathy, supple and no JVD General: Negative for tenderness Lymph Lymphatic: Negative for other Chest Wall inspection of chest normal and palpation of chest normal Chest: Negative for other Resp normal respiratory effort and clear to auscultation bilaterally Effort and Inspection: Negative for retractions Auscultation: Negative for rales, rhonchi or wheezes Cardio regular rate, regular rhythm, S1 normal heart sound, S2 normal heart sound and no murmurs Rate: Negative for bradycardia GI normal to inspection, nondistended, normoactive bowel sounds, non-tender, non-distended and no masses Inspection: Negative for abdominal distention Auscultation: normoactive bowel sounds Palpation: soft; Negative for tender or guarding Back/Spine no CVA tenderness General Back: Negative for CVA tenderness Cervical Spine: Negative for cervical spine tenderness Thoracic Spine / Upper Back: Negative for thoracic spinal tenderness Lumbar Spine / Lower Back: Negative for lumbar spinal tenderness Extremity normal to inspection General Extremety ED: Negative for edema or tenderness General Extremity: Negative for edema Neuro oriented x3 and CN's II-XII intact bilaterally Sensorium / Orientation: alert; Negative for orientation impaired, lethargic or stuporous Motor Exam: strength 5/5 throughout Psych mental status grossly normal Appearance: Negative for unkempt Attitude: No agitated Mood & Affect: Negative for depressed, anxious or tearful Skin no rashes or lesions noted and no wounds General Skin Exam: Negative for jaundice or pallor Lesions: No lesion noted Rashes: No rashes noted Trauma: Negative for abrasion Wounds: Negative for wounds noted MDM MDM MDM Narrative Medical decision making narrative: 63-year-old male with multiple myeloma with generalized weakness. Screening labs are being obtained. Reynold exam patient is doing well at 2:15 PM. I went over all his test results of both he and his . She also pulled up on MyChart from the [facility] his recent right upper quadrant ultrasound which showed gallstones but no obstruction. I went over that test with her also. I explained her on his chest x-ray it appears to be a left lower lobe pneumonia. We have started on Zithromax with his first dose given here orally. Zofran for nausea. Fluids and rest. Tylenol Motrin for fever. His repeat exam is unchanged. His abdomen is benign and nontender. History & Record Review Discussion w/independent historian: Patient Additional record(s) reviewed:: Prior inpatient record, Prior outpatient record, Prior ED visit and Prior labs Lab Data Attestation: I reviewed the patient's lab results. Lab results narrative: CBC shows a normal white count 9.9. H&H 13 and 40. Platelets 278. Lecture lites show sodium 132. Gap of 5. Normal BUN 13 and creatinine 0.9. Liver enzymes are normal except for alkaline phosphatase is elevated at 195. Ammonia level is normal at 17. Urinalysis is normal. No white or red cells. No bacteria nor nitrates. Chest x-ray shows a left lower lobe infiltrate consistent with pneumonia. Labs: Laboratory Results - last 24 hr 08/31/23 08/31/23 11:25 12:59 WBC 9.9 RBC 4.23 L Hgb 13.6 Hct 40.7 MCV 96.2 H MCH 32.2 H MCHC 33.4 RDW Std Deviation 55.0 H RDW Coeff of Saad 15.6 H Plt Count 278 MPV 10.2 Neut % (Auto) Not Reportable Absolute Neuts (auto) 7.7 Absolute Lymphs (auto) 0.99 Total Counted 100 Neutrophils % (Manual) 68 Band Neutrophils % 10 H Lymphocytes % (Manual) 10 L Monocytes % (Manual) 10 Metamyelocytes % 1 Myelocytes % 1 H Diff Path Review May foll Sodium 132 L Potassium 4.0 Chloride 101 Carbon Dioxide 26.0 Anion Gap 5 BUN 13 Creatinine 0.90 Estim Creat Clear Calc 89.81 Est GFR (MDRD) Af Amer 109 Est GFR (MDRD) Non-Af 90 BUN/Creatinine Ratio 14.5 Glucose 212 H Calcium 9.6 Total Bilirubin 1.00 AST 30 ALT 67 H Alkaline Phosphatase 195 H Ammonia 17.0 Total Protein 6.8 Albumin 3.5 Globulin 3.3 Albumin/Globulin Ratio 1.1 Urine Color Yellow Urine Clarity Clear Urine pH 6.0 Ur Specific [place] 1.020 Urine Protein 100 H Urine Glucose (UA) Normal Urine Ketones 15 H Urine Occult Blood 10 H Urine Nitrite Negative Urine Bilirubin Negative Urine Urobilinogen Normal Ur Leukocyte Esterase 25 H Urine RBC 0-5 SEEN Urine WBC 0-5 SEEN Ur Squamous Epith Cells 0 SEEN Urine Bacteria 0 SEEN Urine Mucus 0 SEEN Radiography Chest X-Ray - ED: 1 View, Read by ED Physician, Heart, Mediastinum, Bony Structures, Chronic Changes and Left Infiltrate Diagnostic Testing: Clinical Impression(s) from Imaging Studies Chest X-Ray 08/31/23 11:34 IMPRESSION: Focal infiltrate is seen in the left lower lobe. Radiographic follow-up is recommended. Electronically Signed: Deven Tom MD at 11:58 EST , Chest x-ray, portable, single view shows density in the left lower lobe of the lung consistent with a left lower lobe pneumonia. Interpreted both by myself and the radiologist. Rhythm Strip Rhythm Strip: Sinus Tach Rate: 120 Ectopy: None EKG Initial EKG: Attestation: I personally reviewed and interpreted this EKG as follows: Interpretation: No Acute Injury Pattern and Sinus Tachycardia Comments: Sinus tachycardia rate of 120. Right bundle branch block. Discharge Plan Triage Chief Complaint: Weakness ED Provider: Rell Torres Dx/Rx/DC Orders Clinical Impression: History of atrial fibrillation, Hx of multiple myeloma, History of diabetes mellitus, Pneumonia Instructions: ED Pneumonia (Adult) Prescriptions: New ondansetron 4 mg tablet,disintegrating 4 mg PO Q6H PRN (Reason: nausea and vomiting) Qty: 7 0RF azithromycin [Zithromax] 250 mg tablet 250 mg PO DAILY 4 Days Qty: 4 0RF Rx Instructions: start on day 2 of therapy No Action acyclovir 400 mg tablet 400 mg PO BID carvedilol 6.25 mg Tablet 6.25 mg PO BID loperamide 2 mg Capsule 2 mg PO Q6H PRN (Reason: Diarrhea) tamsulosin [Flomax] 0.4 mg Capsule 0.4 mg PO QHS melatonin 5 mg Tablet 6 mg PO QHS PRN (Reason: SLEEP AID) losartan 50 mg Tablet 50 mg PO DAILY Qty: 30 0RF duloxetine 60 mg Capsule,Delayed Release(Dr/Ec) 60 mg PO DAILY Qty: 30 0RF acetaminophen 325 mg Tablet 650 mg PO Q4H PRN PRN (Reason: Pain/fever) Qty: 0 0RF insulin aspart U-100 100 unit/mL (3 mL) insulin pen 20 unit subcut TID Qty: 18 0RF Mag 64 64 mg Tablet,Delayed Release (Dr/Ec) 128 mg PO DAILY Qty: 30 0RF potassium chloride 20 mEq tablet extended release 20 meq PO BID Rx Instructions: Take 1 tab BID X 3 days and then call for instructions Zyrtec 10 mg capsule 10 mg PO DAILY PRN (Reason: allergy symptoms) Toujeo Max U-300 SoloStar 300 unit/mL (3 mL) insulin pen 35 unit SUBCUT QHS Patient Comments: INJECT 35 UNITS SUBCUTANEOUSLY ONCE DAILY AT BEDTIME ondansetron HCl 8 mg tablet 8 mg PO Q12H PRN (Reason: nausea and vomiting) Patient Comments: TAKE 1 TABLET BY MOUTH EVERY 12 HOURS NEEDED FOR NAUSEA AND VOMITING atorvastatin 80 mg tablet 40 mg PO QHS mesalamine 1,000 mg suppository 1 g [place] QHS Patient Comments: INSERT ONE SUPPOSITORY RECTALLY TWICE DAILY FOR 14 DAYS, THEN ONCE DAILY UNTIL SYMPTOMS RESOLVE. THEN NEEDED. furosemide 40 mg tablet 40 mg PO Q8H PRN (Reason: weight gain) Patient Comments: TAKE NEEDED FOR RAPID WEIGHT GAIN GREATER THAN 5 POUNDS IN 48 HOURS, OR INCREASED LEG SWELLING. NOT MORE THAN ONCE DAILY hydralazine 25 mg Tablet 25 mg PO BID budesonide 3 mg capsule,delayed,extend.release 3 mg PO DAILY Rx Instructions: Take 3 mg pills 3 times a day (9 mg total) for 1 month and then taper to 3 mg pills BID ( 6 mg total) for 1 month. Call after the first month to Friend with symptoms calcium carbonate [Oyster Shell Calcium] 500 mg calcium (1,250 mg) tablet 500 mg PO DAILY Primary Care Provider: Gadiel Morris Referrals: Gadiel Morris MD [Primary Care Provider] - 3-5 Days if not improving Activity Restrictions/Additional Instructions: Your labs look good. You have a left lower lobe pneumonia. Plenty of fluids and rest. Motrin and Tylenol for fever and body aches. Zithromax 1 pill a day starting tomorrow you were given your first dose here. You will take that once a day for 4 more days starting tomorrow. Follow-up with your doctor if not improving or return if worse. Disposition Disposition: Home, Self Care
[2023-08-31 11:30] VITALS: BMI 28.8
[2023-08-31] MEDS: 0.9% Normal Saline (500mL Bag) 500 ML 1000 ML IV (11:34)
--- NOTE | 2023-08-31 11:34 | RAD_ITS ---
STUDY: X-RAY CHEST REASON FOR EXAM: Male, 63 years old. Weakness TECHNIQUE: Single AP portable view of the chest. COMPARISON: None. FINDINGS: Focal infiltrate in the left lower lobe. Radiographic follow-up recommended. There is no demonstrated pleural abnormality. Normal size heart. Normal mediastinum and luke. Normal visualized pulmonary arteries. Normal visualized aortic arch and descending thoracic aorta. There are diffuse degenerative changes of the visualized thoracic spine. Normal visualized ribs, clavicles, and shoulders. There is no demonstrated abnormality of the visualized soft tissue structures of the upper abdomen. RAD/Chest 1 View (Portable) IMPRESSION: Focal infiltrate is seen in the left lower lobe. Radiographic follow-up is recommended. Electronically Signed: Deven Tom MD at 11:58 EST ,
[2023-08-31 11:37] LABS: Hematocrit 40.7 % (40-54); Hemoglobin 13.6 g/dL (13.0-16.5); Mean Corp Hgb Conc 33.4 g/dL (32-36); Mean Corpuscular Hgb 32.2 pg (27.0-32.0); Mean Corpuscular Volume 96.2 fL (80-94); Mean Platelet Vol. 10.2 fl (6.2-12.0); POSITIVE COUNT YES; POSITIVE DIFFERENTIAL YES; POSITIVE MORPHOLOGY YES; Platelet Count 278 K/mm3 (150-450); RBC Distribution Width CV 15.6 % (11.6-14.6); Red Blood Count 4.23 M/mm3 (4.6-6.2); White Blood Count 9.9 K/mm3 (4.4-11.0)
[2023-08-31 11:45] LABS: Differential Indicated MANUAL DIFF
[2023-08-31 11:51] LABS: ALB/GLOB Ratio 1.1 RATIO (0.9-2.4); AST(SGOT) 30 U/L (15-37); Alanine Aminotransfer ALT/SGPT 67 U/L (16-61); Albumin, Serum 3.5 g/dL (3.2-5.0); Alkaline Phosphatase 195 U/L (45-117); Anion Gap 5 (5-15); BUN 13 mg/dL (7-18); BUN/Creat Ratio 14.5 RATIO (10-20); Calcium,Total 9.6 mg/dL (8.5-10.1); Chloride 101 mmol/L (98-107); EST Glomerular Filtration Rate 90 mL/min (>60); Est Glom Filt Rate - Afr Amer 109 mL/min (>60); Estimated Creatinine Clearance 89.81 ml/min; Globulin 3.3 g/dL (2.2-4.2); Glucose 212 mg/dL (74-106); Protein, Total 6.8 g/dL (6.4-8.2); Sodium Level 132 mmol/L (136-145)
[2023-08-31 12:16] LABS: Lymphocyte 10 % (19-41); Metamyelocyte 1 % (0-1); Monocyte 10 % (0-10); Myelocyte 1 % (0-0); Neutrophil-Band 10 % (0-5); Neutrophil-Segmented 68 % (47-70); Total Cells Counted 100 (MANUAL DIFF)
[2023-08-31 12:17] LABS: Absolute Lymphocyte Count 0.99 X10^3/uL (0.83-4.51); Absolute Neutrophil Count 7.7 X10^3/uL (2.0-7.7)
[2023-08-31 13:01] VITALS: BP 139/88; PULSE 79; RESP 16; O2SAT 95
[2023-08-31 13:04] LABS: Bacteria 0 SEEN /hpf (None Seen); Mucous, Urine 0 SEEN /hpf (<or=2+); Squamous Epithelial Cells - UA 0 SEEN /hpf (0-5)
[2023-08-31 13:19] LABS: Color, Urine Yellow (Yellow); Glucose, Dipstick Normal (Normal); Ketone-Dipstick 15 mg/dl (Negative); Leukocyte Esterase-Dipstick 25 /ul (Negative); Nitrite-Dipstick Negative (Negative); Occult Blood-Urine 10 /ul (Negative); Protein-Dipstick 100 mg/dl (Negative); Urine Bilirubin Dipstick Negative (Negative); Urine Clarity Clear (Clear); Urine Urobilinogen Normal (Normal)
[2023-08-31 13:21] LABS: Red Blood Cells-Urine 0-5 SEEN /hpf (0-5); White Blood Cells 0-5 SEEN /hpf (0-5)
[2023-08-31 14:02] VITALS: TEMP 37.6
[2023-08-31 14:43] VITALS: BP 149/79; PULSE 114; RESP 20; O2SAT 93
[2023-08-31] MEDS: Azithromycin 250 MG Tablet 500 MG PO (14:43)
[2023-08-31 22:58] LABS: Platelet Estimate ADEQUATE (ADEQ); Red Cell Morphology NORM C+C NORMAL (NORM C&C)
[2023-09-01 13:23] LABS: Pathologist Review Reviewed
== END 2023-08-31 14:51 | disposition home or self-care (01) ==
PROVIDERS: Emergency Provider Emergency Medicine; PCP Family Medicine; Visit Provider Emergency Medicine
DX: J18.9 Pneumonia, unspecified organism (principal); C90.00 Multiple myeloma not having achieved remission; I11.0 Hypertensive heart disease with heart failure; I50.22 Chronic systolic (congestive) heart failure; I48.91 Unspecified atrial fibrillation; E11.9 Type 2 diabetes mellitus without complications; I25.10 Atherosclerotic heart disease of native coronary artery without angina pectoris; E78.5 Hyperlipidemia, unspecified; R11.0 Nausea; D64.9 Anemia, unspecified
CPT/HCPCS: 71045; 80053; 81001; 82140; 85025; 93005; 96360; 99283; J7030; A4216

== ENCOUNTER → 2023-12-19 | Outpatient (CLI) | payer OTHER, SELFPAY ==
[2023-12-19 11:38] LABS: Prothrombin Time (Protime)PT. 12.9 SECONDS (11.7-14.9)
[2023-12-19 20:03] LABS: Erythrocyte Sedimentation Rate 10 mm/hr (0-20)
[2023-12-25 00:07] LABS: Angiotensin Convert Enzyme 39 U/L (14-82); Cytoplasmic Ab (C-ANCA) <1:20 titer (Neg:<1:20); Endomysial Antibody IgA Negative (Negative); Immunoglobulin A < 5 mg/dL (61-437); Immunoglobulin E < 2 IU/mL (6-495); Immunoglobulin G 32 mg/dL (603-1613); Immunoglobulin M 11 mg/dL (20-172); Perinuclear Ab (P-ANCA) <1:20 titer (Neg:<1:20); QNTFERON TB Mitogen Value > 10.00 IU/mL (.); QNTFERON TB Nil Value 0.03 IU/mL (.); QNTFERON TB1+ Ag Value 0.03 IU/mL (.); QNTFERON TB2+ Ag Value 0.01 IU/mL (.); QNTIFERON TB Positive Criteria Negative (Negative); t-Transglutaminase IgA <2 U/mL (0-3)
== END | disposition home or self-care (01) ==
LOC: LAB 11:05
PROVIDERS: PCP Family Medicine; Referring Provider Internal Medicine Gastroenterology; Visit Provider Internal Medicine Gastroenterology
DX: K52.9 Noninfective gastroenteritis and colitis, unspecified (principal)
CPT/HCPCS: 36415; 82164; 82784; 82785; 83516; 84443; 85610; 85652; 86140; 86255; 86256; 86480

== ENCOUNTER → 2024-01-05 | Outpatient (CLI) | payer MEDICARE, SELFPAY ==
[2024-01-12 15:08] LABS: Pancreatic Elastase, Fecal 206 (>200)
== END | disposition home or self-care (01) ==
PROVIDERS: PCP Family Medicine; Referring Provider Internal Medicine Gastroenterology; Visit Provider Internal Medicine Gastroenterology
DX: K52.9 Noninfective gastroenteritis and colitis, unspecified (principal)
CPT/HCPCS: 82274; 82653; 82705; 83630; 83993; 87177; 87209; 87329; 87493